=== PATIENT | female | born 1975 | race Caucasian/White ===

== ENCOUNTER → 2020-04-17 07:58 | Outpatient (CLI) | payer MEDICARE, SELFPAY ==
[2020-04-17 09:02] LABS: Add Manual Diff / Slide Review NO; Basophils Absolute Auto 0 /uL (0-100); Basophils Percent Auto 0.8 % (0-2); Eosinophils Absolute Auto 200 /uL (0-450); Eosinophils Percent Auto 3.3 % (2-4); Hematocrit 36.2 % (36-46); Hemoglobin 12.1 g/dL (12.0-16.0); Lymphocytes Absolute Auto 2500 /uL (1100-4500); Lymphocytes Percent Auto 41.8 % (25-40); Mean Corpuscular HGB Conc 33.4 % (30-36); Mean Corpuscular Hemoglobin 30.7 PG (26-34); Mean Corpuscular Volume 91.9 fL (80-100); Monocytes Absolute Auto 400 /uL (0-900); Monocytes Percent Auto 6.6 % (3-14); Neutrophils Absolute Auto 2900 /uL (1500-7000); Neutrophils Percent Auto 47.5 % (50-75); Platelet Count 407 X10^3/uL (150-400); Red Blood Cell Count 3.95 X10^6/uL (4.0-5.2); Red Cell Distribution Width 12.7 % (11.6-14.8); White Blood Cell Count 6.1 X10^3/uL (4.5-11.0)
[2020-04-17 09:29] LABS: Alanine Aminotransferase 15 IU/L (<35); Albumin 3.8 g/dL (3.5-5.0); Albumin Globulin Ratio 1.1 (1.0-2.8); Alkaline Phosphatase 68 U/L (38-126); Aspartate Aminotransferase 25 IU/L (14-36); BUN Creatinine Ratio 15.2 (6-22); Bilirubin Total 0.3 mg/dL (0.2-1.3); Blood Urea Nitrogen 12 mg/dL (7-17); Calcium 9.1 mg/dL (8.4-10.2); Carbon Dioxide 29 mmol/L (22-32); Chloride 104 mmol/L (98-107); Cholesterol 268 mg/dL (140-199); Estimated Glomerular Filt Rate > 60.0 mL/min (>60); Globulin 3.4 g/dL (1.7-4.1); Glucose 94 mg/dL (70-100); Potassium 4.2 mmol/L (3.4-5.1); Sodium 135 mmol/L (137-145); Total Protein 7.2 g/dL (6.3-8.2); Triglycerides 140 mg/dL (35-150)
[2020-04-17 09:36] LABS: HEMOLYSIS < 15 (0-50)
[2020-04-17 09:37] LABS: LDL Cholesterol Calculated 130 mg/dL (<100)
[2020-04-17 09:55] LABS: TSH w/ Reflex to FT4 3.08 uIU/mL (0.47-4.68)
== END ==
PROVIDERS: PCP Registered Nurse Diabetes Educator; Referring Provider Registered Nurse Diabetes Educator; Visit Provider Registered Nurse Diabetes Educator
DX: Z00.00 Encounter for general adult medical examination without abnormal findings (principal)
CPT/HCPCS: 36415; 80053; 80061; 84443; 85025

== ENCOUNTER → 2020-06-18 10:01 | Outpatient (CLI) | payer MEDICARE, SELFPAY ==
--- NOTE | 2020-06-18 10:02 | DI.MG.S_ITS ---
BILATERAL DIGITAL SCREENING MAMMOGRAM 3D/2D WITH CAD: 06/18/2020 CLINICAL: Routine screening. Comparison is made to exam dated: 10/08/2018 mammogram - outside location. The tissue of both breasts is heterogeneously dense. This may lower the sensitivity of mammography. Current study was also evaluated with a Computer Aided Detection (CAD) system. No significant masses, calcifications, or other findings are seen in either breast. There has been no significant interval change. IMPRESSION: NEGATIVE There is no mammographic evidence of malignancy. A 1 year screening mammogram is recommended. This exam was interpreted at Station ID: [id number]. NOTE: For mammograms, a report in lay terms will be sent to the patient. Approximately 15% of breast malignancies will not be visualized mammographically. In the management of a palpable breast mass, a negative mammogram must not discourage biopsy of a clinically suspicious lesion. Electronically Signed By: Kg Mendes acr/oleg:06/18/2020 13:10:05 letter sent: Normal Exam ACR BI-RADS Category 1: Negative [id number]
== END ==
PROVIDERS: PCP Registered Nurse Diabetes Educator; Referring Provider Registered Nurse Diabetes Educator; Visit Provider Registered Nurse Diabetes Educator
DX: Z12.31 Encounter for screening mammogram for malignant neoplasm of breast (principal)
CPT/HCPCS: 77063; 77067

== ENCOUNTER 2020-09-18 12:45 | Outpatient (RCR) | payer MEDICARE, MEDICAID, SELFPAY ==
--- NOTE | 2020-05-21 09:00 | PT.OIE ---
Current Diagnoses Pain in unspecified shoulder (05/21/20) Past Medical History (Last Updated 04/09/20 @ 06:56 by JUAN Tay) Bipolar disorder (~2008) Dyslipidemia Narcolepsy (~1992) Overweight (BMI 25.0-29.9) PCOS (polycystic ovarian syndrome) (~1995) Sleep apnea (~2019) Past Surgical History (Last Reviewed 04/09/20 @ 06:52 by JUAN Tay) Anesthesia History of colonoscopy (~11/2019) History of esophagogastroduodenoscopy (EGD) (~11/2019) History of surgical removal of pilonidal cyst (~11/2004) Visit Care Team Role Provider Type JUAN Tay Attending Provider Advanced Costumed Character Primary Care Provider Referring Provider Specialty: Medical Address: [address] [place] [address] Email: [email or web address] Physical Therapy Initial Evaluation PT-OP-A Visit Information Start: 05/21/20 14:19 Freq: Status: Active Protocol: Document 05/21/20 09:00 DLM (Rec: 05/21/20 15:12 DL [id number]) Out-Patient Physical Therapy Visit Information Visit Information Visit Type Initial Evaluation Visit Start Time 09:00 Visit Stop Time 10:00 Total Visit Minutes 60 Visit Number 1 Number of GEOLOGICAL TECHNICAL OFFICER Visits 0 Evaluation Information Evaluation Date 05/21/20 PT-OP-B Current Condition Start: 05/21/20 14:19 Freq: Status: Active Protocol: Document 05/21/20 09:00 DLM (Rec: 05/21/20 15:12 DL [id number]) Current Condition History of Current Condition Onset Date 9 months hx Current Complaints right shoulder pain History of Current Condition She developed right shoulder pain 9 months ago. She reports at that time she was sleeping on her side with her hands between her knees and she thinks she irritated her shoulder. The pain has continued since that time and it limits the functional use or her right shoulder. Prior Treatments and Tests none Future Testing and Treatments Planned none planned Treatment Goals Patient/Caregiver Goals resolve the pain in right shoulder for normal use Prior Functional Status Baseline Function- ADL's Independent Baseline Function- Mobility Independent Baseline Function- Gait Independent without a device Baseline Function- Work/School she is unemployed Baseline Function- Recreation/Hobbies works out regularly; Aerobics, Lifting weights, Pilates, Walking Baseline Function- Other Right hand dominant Current Functional Impairments (Reported) Functional Limitations- ADL's pain reaching her back with right UE, pain reaching up, pain cleaning shower Functional Limitations- Mobility/Gait no changes Functional Limitations- Work/School she wants to get a job and is worried that her right shoulder pain will limit her ability to work, interested in applying for a atm technician or some type of medical liaison position Functional Limitations- Recreation/ right shoulder pain limits her Hobbies ability to do aerobics routine and lifting weights Functional Limitations- Other in her spare time she reads and spends time on the computer/phone Personal Factors Other Personal Factors That May Effect Bipolar disorder and Therapy/Recovery Narcolepsy PT-OP-C Subjective Start: 05/21/20 14:19 Freq: Status: Active Protocol: Document 05/21/20 09:00 DLM (Rec: 05/21/20 15:12 [facility] [id number]) Patient Questionnaires Quick Dash- Upper Extremity Quick Dash UE Score 40.9 Quick Dash UE Impairment 40 to 59% Impaired (Score 40- 59) OP-PT Pain Assessment Pain Assessment Grid Paper Pain Assessment Grid Completed Yes: see in paper chart Location Right Shoulder Pain Location Details anterior and superior areas of right shoulder Intensity 2 Scale Used Numeric (0 - 10) Description Aching,With Movement Frequency Intermittent Pain Aggravating Factors Changing Position,Activity, Exercise Other Pain Aggravating Factors reaching up and behind her Pain Alleviating Factors Rest Other Pain Alleviating Factors she has not tried heat or ice on her shoulder Pain Behaviors Pain Behaviors Guarding PT-OP-F Manual Assessment Start: 05/21/20 14:19 Freq: Status: Active Protocol: Document 05/21/20 09:00 DLM (Rec: 05/21/20 15:12 DL [id number]) Manual Assessments Soft Tissue Assessment Soft Tissue Mobility Assessment soft tissue tightness anterior shoulder and biceps with tenderness Joint Mobility Assessment Joint Mobility Assessment mild to moderate decrease in post and inferior glides right shoulder compared to left PT-OP-J Posture/Palpation/Skin Start: 05/21/20 14:19 Freq: Status: Active Protocol: Document 05/21/20 09:00 DLM (Rec: 05/21/20 15:12 DL [id number]) Posture Evaluation Comments Posture Comments flexed posture with rounded shoulders and forward head Palpation Assessment Location Right shoulder Palpation Location right shoulder joint area Palpation Findings Tenderness Palpation Details anterior shoulder joint tender , biceps tendon tender, No AC joint tenderness, mild to moderate tightness in her Upper trap, mild tightness right pect major, no scapular area tenderness PT-OP-K Range of Motion Start: 05/21/20 14:19 Freq: Status: Active Protocol: Document 05/21/20 09:00 DLM (Rec: 05/21/20 15:12 DL [id number]) Shoulder Goniometric Range of Motion Shoulder Right Active Flexion 130 Abduction 80 External Rotation at 90 degrees 75 Abduction Internal Rotation 55 Internal Rotation Behind Back (text) to right post side of back limited by pain Comments pain limits right shoulder ROM PT-OP-L Special Tests Start: 05/21/20 14:19 Freq: Status: Active Protocol: Document 05/21/20 09:00 DLM (Rec: 05/21/20 15:12 DL [id number]) Special Tests Shoulder Special Tests Elevation Impingement Test Results positive on right Empty Can Test Results positive on right Drop Arm Rotator Cuff Test Results negative Apprehension Test Test Results negative on right Elbow Special Tests Raza Biceps Test Results negative PT-OP-M Strength Start: 05/21/20 14:19 Freq: Status: Active Protocol: Document 05/21/20 09:00 DLM (Rec: 05/21/20 15:12 DL [id number]) Shoulder Strength Shoulder Manual Muscle Testing Right Flexion 4 Good Extension 4 Good Abduction (C5) 4- Good- Adduction 4+ Good+ External Rotation 4 Good Internal Rotation 4+ Good+ Comments tested in painfree range of motion Elbow/Forearm Strength Elbow and Forearm Manual Muscle Testing Right Flexion (C6) 5 Normal Extension (C7) 5 Normal Wrist Strength Wrist Manual Muscle Testing Right Flexion (C7) 5 Normal Extension (C6) 5 Normal Hand Radiology Transcriptionist/Pinch Strength Hand Dominance Hand Dominance Right PT-OP-Q Treatments Start: 05/21/20 14:19 Freq: Status: Active Protocol: Document 05/21/20 09:00 DLM (Rec: 05/21/20 15:12 DL [id number]) Therapeutic Exercises Supine Exercises AAROM Shoulder flexion Supine Exercise Name Cane ex for flexion ROM Side bilateral Resistance AAROM Equipment Used cane Reps/Minutes 10 reps Comments less pain with wider drive in waiter/waitress Standing Exercises Posture Exercise Standing Exercise Name standing with back to wall for erect posture Resistance active Reps/Minutes 3 reps Manual Therapy Treatment Soft Tissue Mobilization 1 Body Location right anterior shoulder Mobilization Type Myofascial Release Intensity/Depth Superficial Body Position Supine Manual Techniques 1 Type manual stretching of upper trap by therapist Body Position Supine Self-Care/Home Management Treatment Education Patient Education Home Exercise Program,Pain Management,Posture Other Education pt to rest arm during aerobics and weight lifting to avoid increasing her pain, add icing to shoulder 1-2 x/day for 10- 15 min at a time PT-OP-R Modalities Start: 05/21/20 14:19 Freq: Status: Active Protocol: Document 05/21/20 09:00 DLM (Rec: 05/21/20 15:12 DLM [id number]) Hot Pack/Cold Pack Treatment Cold Pack Location right shoulder Patient Position Supine Treatment Duration (minutes) 10 Patient Tolerance Good Comments she reports less pain after icing PT-OP-T Assessment and Plan Start: 05/21/20 14:19 Freq: Status: Active Protocol: Document 05/21/20 09:00 DLM (Rec: 05/21/20 15:12 DLM [id number]) Physical Therapy Assessment Rehab Potential Rehabilitation Potential Good Evaluation Complexity Number of Personal Factors/Comorbidities 1-2 Number of Body Systems Impaired 4 or More Clinical Presentation at Evaluation Evolving Impairments Impairments Functional Activities,Pain, Posture,ROM,Soft Tissue Mobility,Strength Goals Strength Impairment Right shoulder weakness with pain Short Term Goal (STG) Increase right shoulder strength to 4+/5 STG Duration 2 weeks Tank Car Repairer Goal (LTG) Return to regular aerobic and weight lifting exercise routine at home LTG Duration 4 weeks ROM Impairment Right shoulder limited with pain Short Term Goal (STG) Increase shoulder flexion to 170 degrees and abduction to 150 degrees STG Duration 2 weeks Tank Car Repairer Goal (LTG) Increase right shoulder AROM to WNL LTG Duration 4 weeks Pain Impairment 2/10 pain, limited ROM and strength Short Term Goal (STG) She will be able to reach up over head without increased pain STG Duration 2 weeks Skilled Nursing Goal (LTG) She will be able to reach behind her back without increased pain LTG Duration 4 weeks Assessment Summary Assessment Kedar presents with clinical signs of right shoulder strain with rotator cuff impingement . Pt believes this started after a change in her sleeping position. Concerned it may be further complicated by her home exercises. She is a good candidate for physical therapy at this time. Her right shoulder pain is limiting functional ROM and strength of right UE. Physical Therapy Plan Frequency and Duration Frequency of Treatment 2x/Week Duration of Treatment 4 weeks Plan of Care Start Date 05/21/20 Plan of Care End Date 07/05/20 Therapeutic Interventions Therapeutic Interventions Home Exercise Program,Joint Mobilizations,Manual Therapy, Patient/Caregiver Education, Self-Care/Home Management,Soft Tissue Mobilization,Taping, Therapeutic Activities, Therapeutic Exercises Modalities Cold Pack/Ice Massage,Electric Stimulation,Hot Packs, Ultrasound Next Visit Focus/Plan Next Note Type Treatment Note Next Visit Plan Pt to bring in a list of her right shoulder ex from aerobic and weight lifting routine at home. Progress rotator cuff exercises in painfree ROM. Reinforce good posture.
--- NOTE | 2020-05-21 09:00 | PT.OPPOC ---
Addendum entered and electronically signed by Maia Mcgraw PT 05/21/20 15:17: sending for e-signature Original Note: Physical, Occupational & Speech Therapy [facility] Current Diagnoses Pain in unspecified shoulder (05/21/20) Muscle weakness (generalized) (05/21/20) Impingement syndrome of right shoulder (05/21/20) Visit Care Team Role Provider Type JUAN Tay Attending Provider Advanced Bat Person Primary Care Provider Referring Provider Specialty: Medical Address: [address] [place] [address], [facility] Email: [email or web address] Plan Of Care PT-OP-T Assessment and Plan Start: 05/21/20 14:19 Freq: Status: Active Protocol: Document 05/21/20 09:00 DLM (Rec: 05/21/20 15:12 DLM [id number]) Physical Therapy Assessment Rehab Potential Rehabilitation Potential Good Evaluation Complexity Number of Personal Factors/Comorbidities 1-2 Number of Body Systems Impaired 4 or More Clinical Presentation at Evaluation Evolving Impairments Impairments Functional Activities,Pain, Posture,ROM,Soft Tissue Mobility,Strength Goals Strength Impairment Right shoulder weakness with pain Short Term Goal (STG) Increase right shoulder strength to 4+/5 STG Duration 2 weeks Sales Facilitator Goal (LTG) Return to regular aerobic and weight lifting exercise routine at home LTG Duration 4 weeks ROM Impairment Right shoulder limited with pain Short Term Goal (STG) Increase shoulder flexion to 170 degrees and abduction to 150 degrees STG Duration 2 weeks Retirement Goal (LTG) Increase right shoulder AROM to WNL LTG Duration 4 weeks Pain Impairment 2/10 pain, limited ROM and strength Short Term Goal (STG) She will be able to reach up over head without increased pain STG Duration 2 weeks Sales Facilitator Goal (LTG) She will be able to reach behind her back without increased pain LTG Duration 4 weeks Assessment Summary Assessment Kedar presents with clinical signs of right shoulder strain with rotator cuff impingement . Pt believes this started after a change in her sleeping position. Concerned it may be further complicated by her home exercises. She is a good candidate for physical therapy at this time. Her right shoulder pain is limiting functional ROM and strength of right UE. Physical Therapy Plan Frequency and Duration Frequency of Treatment 2x/Week Duration of Treatment 4 weeks Plan of Care Start Date 05/21/20 Plan of Care End Date 07/05/20 Therapeutic Interventions Therapeutic Interventions Home Exercise Program,Joint Mobilizations,Manual Therapy, Patient/Caregiver Education, Self-Care/Home Management,Soft Tissue Mobilization,Taping, Therapeutic Activities, Therapeutic Exercises Modalities Cold Pack/Ice Massage,Electric Stimulation,Hot Packs, Ultrasound Next Visit Focus/Plan Next Note Type Treatment Note Next Visit Plan Pt to bring in a list of her right shoulder ex from aerobic and weight lifting routine at home. Progress rotator cuff exercises in painfree ROM. Reinforce good posture. Plan of Care Dates Plan of Care Start Date 05/21/20 Plan of Care End Date 07/05/20 Electronically Signed by: Maia Mcgraw, PT 05/21/20 [id number] Please Sign and Return: I have reviewed this Plan of Care and certify that the skilled therapy services above are required to meet the patient?s needs. Physician Signature Date Printed Name and Credentials C
--- NOTE | 2020-05-25 13:53 | PT.OTN ---
Current Diagnoses Pain in unspecified shoulder (05/25/20) Muscle weakness (generalized) (05/25/20) Impingement syndrome of right shoulder (05/25/20) Physical Therapy Treatment Note PT-OP-A Visit Information Start: 05/21/20 14:19 Freq: Status: Active Protocol: Document 05/25/20 13:53 DLM (Rec: 05/25/20 14:09 DLM [id number]) Out-Patient Physical Therapy Visit Information Visit Information Visit Type Treatment Note Visit Start Time 13:00 Visit Stop Time 13:50 Total Visit Minutes 50 Visit Number 2 Number of INTERNET MARKETER Visits 0 Evaluation Information Evaluation Date 05/21/20 PT-OP-B Current Condition Start: 05/21/20 14:19 Freq: Status: Active Protocol: Document 05/21/20 09:00 DLM (Rec: 05/21/20 15:12 DLM [id number]) Current Condition History of Current Condition Onset Date 9 months hx Current Complaints right shoulder pain History of Current Condition She developed right shoulder pain 9 months ago. She reports at that time she was sleeping on her side with her hands between her knees and she thinks she irritated her shoulder. The pain has continued since that time and it limits the functional use or her right shoulder. Prior Treatments and Tests none Future Testing and Treatments Planned none planned Treatment Goals Patient/Caregiver Goals resolve the pain in right shoulder for normal use Prior Functional Status Baseline Function- ADL's Independent Baseline Function- Mobility Independent Baseline Function- Gait Independent without a device Baseline Function- Work/School she is unemployed Baseline Function- Recreation/Hobbies works out regularly; Aerobics, Lifting weights, Pilates, Walking Baseline Function- Other Right hand dominant Current Functional Impairments (Reported) Functional Limitations- ADL's pain reaching her back with right UE, pain reaching up, pain cleaning shower Functional Limitations- Mobility/Gait no changes Functional Limitations- Work/School she wants to get a job and is worried that her right shoulder pain will limit her ability to work, interested in applying for a pharmacy laboratory technician or some type of medical record assistant position Functional Limitations- Recreation/ right shoulder pain limits her Hobbies ability to do aerobics routine and lifting weights Functional Limitations- Other in her spare time she reads and spends time on the computer/phone Personal Factors Other Personal Factors That May Effect Bipolar disorder and Therapy/Recovery Narcolepsy PT-OP-C Subjective Start: 05/21/20 14:19 Freq: Status: Active Protocol: Document 05/25/20 13:53 DLM (Rec: 05/25/20 14:09 DLM [id number]) OP-PT Subjective Patient Comments Patient Comments She reports her shoulder pain has been a little better; pain is less sharp. She has been doing the ex at home. She forgot to make a list of her normal aerobic and weight training ex that she does with right UE. PT-OP-F Manual Assessment Start: 05/21/20 14:19 Freq: Status: Active Protocol: Document 05/21/20 09:00 DLM (Rec: 05/21/20 15:12 DLM [id number]) Manual Assessments Soft Tissue Assessment Soft Tissue Mobility Assessment soft tissue tightness anterior shoulder and biceps with tenderness Joint Mobility Assessment Joint Mobility Assessment mild to moderate decrease in post and inferior glides right shoulder compared to left PT-OP-J Posture/Palpation/Skin Start: 05/21/20 14:19 Freq: Status: Active Protocol: Document 05/21/20 09:00 DLM (Rec: 05/21/20 15:12 DLM [id number]) Posture Evaluation Comments Posture Comments flexed posture with rounded shoulders and forward head Palpation Assessment Location Right shoulder Palpation Location right shoulder joint area Palpation Findings Tenderness Palpation Details anterior shoulder joint tender , biceps tendon tender, No AC joint tenderness, mild to moderate tightness in her Upper trap, mild tightness right pect major, no scapular area tenderness PT-OP-K Range of Motion Start: 05/21/20 14:19 Freq: Status: Active Protocol: Document 05/21/20 09:00 DLM (Rec: 05/21/20 15:12 DLM [id number]) Shoulder Goniometric Range of Motion Shoulder Right Active Flexion 130 Abduction 80 External Rotation at 90 degrees 75 Abduction Internal Rotation 55 Internal Rotation Behind Back (text) to right post side of back limited by pain Comments pain limits right shoulder ROM PT-OP-L Special Tests Start: 05/21/20 14:19 Freq: Status: Active Protocol: Document 05/21/20 09:00 DLM (Rec: 05/21/20 15:12 DLM [id number]) Special Tests Shoulder Special Tests Elevation Impingement Test Results positive on right Empty Can Test Results positive on right Drop Arm Rotator Cuff Test Results negative Apprehension Test Test Results negative on right Elbow Special Tests Raza Biceps Test Results negative PT-OP-M Strength Start: 05/21/20 14:19 Freq: Status: Active Protocol: Document 05/21/20 09:00 DLM (Rec: 05/21/20 15:12 DLM [id number]) Shoulder Strength Shoulder Manual Muscle Testing Right Flexion 4 Good Extension 4 Good Abduction (C5) 4- Good- Adduction 4+ Good+ External Rotation 4 Good Internal Rotation 4+ Good+ Comments tested in painfree range of motion Elbow/Forearm Strength Elbow and Forearm Manual Muscle Testing Right Flexion (C6) 5 Normal Extension (C7) 5 Normal Wrist Strength Wrist Manual Muscle Testing Right Flexion (C7) 5 Normal Extension (C6) 5 Normal Hand Pit Recorder/Pinch Strength Hand Dominance Hand Dominance Right PT-OP-Q Treatments Start: 05/21/20 14:19 Freq: Status: Active Protocol: Document 05/25/20 13:53 DLM (Rec: 05/25/20 14:09 DLM [id number]) Therapeutic Exercises Supine Exercises Shoulder IR/ER Supine Exercise Name supine IR/ER Side right Resistance 1# Reps/Minutes 15 reps Comments therapist assist with shoulder stab Postural Stretch Supine Exercise Name supine foam roll stretch Reps/Minutes 5 min Comments UE's at sides AAROM Shoulder flexion Supine Exercise Name Cane ex for flexion ROM Side bilateral Resistance AAROM Equipment Used cane Reps/Minutes 10 reps Comments adjusted hand width to minimize pain Sitting Exercises Pulleys Sitting Exercise Name AAROM flexion/scaption Side right Reps/Minutes 15 reps Comments seated with back to ceci Standing Exercises Shoulder IR Standing Exercise Name shoulder internal rotation Side right Resistance L1 exercise band Reps/Minutes 2 x 10 reps Comments v.c. for erect posture Shoulder Ext Standing Exercise Name Shoulder Extension Side bilateral Resistance L1 exercise band Reps/Minutes 2 x 10 reps Comments v.c. for erect posture Shoulder ER Standing Exercise Name shoulder External rotation Side bilateral Resistance L1 exercise band Reps/Minutes 2 x 10 reps Comments v.c. for erect posture Posture Exercise Standing Exercise Name standing with back to wall for erect posture Reps/Minutes reviewed for HEP Manual Therapy Treatment Soft Tissue Mobilization 1 Body Location right anterior shoulder Mobilization Type Myofascial Release Intensity/Depth Superficial Body Position Supine Comments and biceps Joint Mobilizations GH Joint GH, right Direction post and inferior Grade II Body Position Supine Manual Techniques 1 Type manual stretching of upper trap by therapist Body Location right Body Position Supine Self-Care/Home Management Treatment Education Patient Education Home Exercise Program,Pain Management,Posture Other Education copy of HEP in paper chart, she needs all home exercises written to be able to recall them, provided L1 band for home use PT-OP-R Modalities Start: 05/21/20 14:19 Freq: Status: Active Protocol: Document 05/25/20 13:53 DLM (Rec: 05/25/20 14:09 DLM [id number]) Hot Pack/Cold Pack Treatment Cold Pack Location right shoulder Patient Position Supine Treatment Duration (minutes) 10 Patient Tolerance Good Comments she reports less pain after icing PT-OP-T Assessment and Plan Start: 05/21/20 14:19 Freq: Status: Active Protocol: Document 05/25/20 13:53 DLM (Rec: 05/25/20 14:09 DLM [id number]) Physical Therapy Assessment Goals Strength Impairment Right shoulder weakness with pain Short Term Goal (STG) Increase right shoulder strength to 4+/5 STG Duration 2 weeks Spinning Frame Changer Goal (LTG) Return to regular aerobic and weight lifting exercise routine at home LTG Duration 4 weeks ROM Impairment Right shoulder limited with pain Short Term Goal (STG) Increase shoulder flexion to 170 degrees and abduction to 150 degrees STG Duration 2 weeks Spinning Frame Changer Goal (LTG) Increase right shoulder AROM to WNL LTG Duration 4 weeks Pain Impairment 2/10 pain, limited ROM and strength Short Term Goal (STG) She will be able to reach up over head without increased pain STG Duration 2 weeks Half-Way Goal (LTG) She will be able to reach behind her back without increased pain LTG Duration 4 weeks Progress Towards Goals Progress Towards Goals Progressing Toward Goals Assessment Summary Assessment Kedar tolerated this treatment session well today. Able to progress her exercises. No increase in pain with theraband exercises. She continues to have pain at end range flexion. Less pain with pulleys than cane ex. She reports less pain with use of ice. She rarely makes eye contact during therapy session but she is engaged in the activities and shows good effort. She asks good questions. Physical Therapy Plan Frequency and Duration Frequency of Treatment 2x/Week Duration of Treatment 4 weeks Plan of Care Start Date 05/21/20 Plan of Care End Date 07/05/20 Therapeutic Interventions Therapeutic Interventions Home Exercise Program,Joint Mobilizations,Manual Therapy, Patient/Caregiver Education, Self-Care/Home Management,Soft Tissue Mobilization,Taping, Therapeutic Activities, Therapeutic Exercises Modalities Cold Pack/Ice Massage,Electric Stimulation,Hot Packs, Ultrasound Next Visit Focus/Plan Next Note Type Treatment Note Next Visit Plan slowly progress rotator cuff strengthening, she will bring a list of her aerobic and weight training exercises that she normally does with right UE
--- NOTE | 2020-06-08 11:49 | PT.OTN ---
Current Diagnoses Pain in unspecified shoulder (06/08/20) Muscle weakness (generalized) (06/08/20) Impingement syndrome of right shoulder (06/08/20) Physical Therapy Treatment Note PT-OP-A Visit Information Start: 05/21/20 14:19 Freq: Status: Active Protocol: Document 06/08/20 08:17 LRN (Rec: 06/08/20 09:06 LRN [id number]) Out-Patient Physical Therapy Visit Information Visit Information Visit Type Treatment Note Visit Start Time 08:17 Visit Stop Time 09:06 Total Visit Minutes 49 Visit Number 3 Evaluation Information Evaluation Date 05/21/20 PT-OP-B Current Condition Start: 05/21/20 14:19 Freq: Status: Active Protocol: Document 05/21/20 09:00 DLM (Rec: 05/21/20 15:12 DLM [id number]) Current Condition History of Current Condition Onset Date 9 months hx Current Complaints right shoulder pain History of Current Condition She developed right shoulder pain 9 months ago. She reports at that time she was sleeping on her side with her hands between her knees and she thinks she irritated her shoulder. The pain has continued since that time and it limits the functional use or her right shoulder. Prior Treatments and Tests none Future Testing and Treatments Planned none planned Treatment Goals Patient/Caregiver Goals resolve the pain in right shoulder for normal use Prior Functional Status Baseline Function- ADL's Independent Baseline Function- Mobility Independent Baseline Function- Gait Independent without a device Baseline Function- Work/School she is unemployed Baseline Function- Recreation/Hobbies works out regularly; Aerobics, Lifting weights, Pilates, Walking Baseline Function- Other Right hand dominant Current Functional Impairments (Reported) Functional Limitations- ADL's pain reaching her back with right UE, pain reaching up, pain cleaning shower Functional Limitations- Mobility/Gait no changes Functional Limitations- Work/School she wants to get a job and is worried that her right shoulder pain will limit her ability to work, interested in applying for a retail pharmacy manager or some type of medical coding auditor position Functional Limitations- Recreation/ right shoulder pain limits her Hobbies ability to do aerobics routine and lifting weights Functional Limitations- Other in her spare time she reads and spends time on the computer/phone Personal Factors Other Personal Factors That May Effect Bipolar disorder and Therapy/Recovery Narcolepsy PT-OP-C Subjective Start: 05/21/20 14:19 Freq: Status: Active Protocol: Document 06/08/20 08:17 LRN (Rec: 06/08/20 09:06 LRN [id number]) OP-PT Subjective Patient Comments Patient Comments R shoulder is okay, thinks it might be getting better. PT-OP-F Manual Assessment Start: 05/21/20 14:19 Freq: Status: Active Protocol: Document 05/21/20 09:00 DLM (Rec: 05/21/20 15:12 DLM [id number]) Manual Assessments Soft Tissue Assessment Soft Tissue Mobility Assessment soft tissue tightness anterior shoulder and biceps with tenderness Joint Mobility Assessment Joint Mobility Assessment mild to moderate decrease in post and inferior glides right shoulder compared to left PT-OP-J Posture/Palpation/Skin Start: 05/21/20 14:19 Freq: Status: Active Protocol: Document 05/21/20 09:00 DLM (Rec: 05/21/20 15:12 DLM [id number]) Posture Evaluation Comments Posture Comments flexed posture with rounded shoulders and forward head Palpation Assessment Location Right shoulder Palpation Location right shoulder joint area Palpation Findings Tenderness Palpation Details anterior shoulder joint tender , biceps tendon tender, No AC joint tenderness, mild to moderate tightness in her Upper trap, mild tightness right pect major, no scapular area tenderness PT-OP-K Range of Motion Start: 05/21/20 14:19 Freq: Status: Active Protocol: Document 06/08/20 08:17 LRN (Rec: 06/08/20 09:06 LRN [id number]) Shoulder Goniometric Range of Motion Shoulder Right Active Shoulder ROM WFL No Testing Position Supine Flexion 140 PT-OP-L Special Tests Start: 05/21/20 14:19 Freq: Status: Active Protocol: Document 05/21/20 09:00 DLM (Rec: 05/21/20 15:12 DLM [id number]) Special Tests Shoulder Special Tests Elevation Impingement Test Results positive on right Empty Can Test Results positive on right Drop Arm Rotator Cuff Test Results negative Apprehension Test Test Results negative on right Elbow Special Tests Raza Biceps Test Results negative PT-OP-M Strength Start: 05/21/20 14:19 Freq: Status: Active Protocol: Document 05/21/20 09:00 DLM (Rec: 05/21/20 15:12 [facility] [id number]) Shoulder Strength Shoulder Manual Muscle Testing Right Flexion 4 Good Extension 4 Good Abduction (C5) 4- Good- Adduction 4+ Good+ External Rotation 4 Good Internal Rotation 4+ Good+ Comments tested in painfree range of motion Elbow/Forearm Strength Elbow and Forearm Manual Muscle Testing Right Flexion (C6) 5 Normal Extension (C7) 5 Normal Wrist Strength Wrist Manual Muscle Testing Right Flexion (C7) 5 Normal Extension (C6) 5 Normal Hand Finishing Lab Technician/Pinch Strength Hand Dominance Hand Dominance Right PT-OP-Q Treatments Start: 05/21/20 14:19 Freq: Status: Active Protocol: Document 06/08/20 08:17 LRN (Rec: 06/08/20 09:06 LRN [id number]) Therapeutic Exercises Supine Exercises ER stretch Supine Exercise Name ER stretch Side right Equipment Used Cane Reps/Minutes 4' Comments Extra time to deter max ROM stretch alea & proper stretch AAROM Shoulder flexion Supine Exercise Name Cane ex for flexion ROM Side bilateral Resistance AAROM Equipment Used cane Reps/Minutes 10 reps Comments adjusted hand width to minimize pain Standing Exercises Shoulder IR Standing Exercise Name shoulder internal rotation Side right Resistance L1 exercise band Reps/Minutes 2 x 10 reps Comments v.c. for erect posture Shoulder Ext Standing Exercise Name Shoulder Extension Side bilateral Resistance L1 exercise band Reps/Minutes 2 x 10 reps Comments v.c. for erect posture Shoulder ER Standing Exercise Name shoulder External rotation Side bilateral Resistance L1 exercise band Reps/Minutes 2 x 10 reps Comments v.c. for erect posture Self-Care/Home Management Treatment Education Patient Education Home Exercise Program Other Education Reviewed pt's HEP. Educated pt in correct method of using strap in door for shouler ext ex w/TB. At length pt education in proper posturing in standing and discussion of re-training body posturing. Activities Self-Care/Home Management Activities Reviewed pt 's HEP of her current aerobic exer routine. Issued & extensively reviewed HEP: R shoulder ER stretch. Answered pt's questions at end of therapy with pt requesting names of massage therapists. PT-OP-R Modalities Start: 05/21/20 14:19 Freq: Status: Active Protocol: Document 06/08/20 08:17 LRN (Rec: 06/08/20 11:49 LRN [id number]) Hot Pack/Cold Pack Treatment Cold Pack Location right shoulder Patient Position Supine Treatment Duration (minutes) 10 Patient Tolerance Good PT-OP-T Assessment and Plan Start: 05/21/20 14:19 Freq: Status: Active Protocol: Document 06/08/20 08:17 VINEET (Rec: 06/08/20 09:06 LRN [id number]) Physical Therapy Assessment Goals Strength Impairment Right shoulder weakness with pain Short Term Goal (STG) Increase right shoulder strength to 4+/5 STG Duration 2 weeks Mcfp Goal (LTG) Return to regular aerobic and weight lifting exercise routine at home LTG Duration 4 weeks ROM Impairment Right shoulder limited with pain Short Term Goal (STG) Increase shoulder flexion to 170 degrees and abduction to 150 degrees. (06/08/20: R shoulder active flex in supine is 140 deg's) STG Duration 2 weeks (06/08/20: Improving) Welder Fitter Gas Goal (LTG) Increase right shoulder AROM to WNL LTG Duration 4 weeks Pain Impairment 2/10 pain, limited ROM and strength Short Term Goal (STG) She will be able to reach up over head without increased pain STG Duration 2 weeks Welder Fitter Gas Goal (LTG) She will be able to reach behind her back without increased pain LTG Duration 4 weeks Progress Towards Goals Progress Comments R active shoulder supine flex is 140 deg's, improved from 130 deg's. Assessment Summary Assessment Pt tends to look at feet with ex & needs v. cuing during therapy. Pt tends to require much explanation and discussion of a single exercise during therapy and pt moves slowly through program. Physical Therapy Plan Frequency and Duration Frequency of Treatment 2x/Week Duration of Treatment 4 weeks Plan of Care Start Date 05/21/20 Plan of Care End Date 07/05/20 Next Visit Focus/Plan Next Note Type Treatment Note Next Visit Plan slowly progress rotator cuff strengthening. Review previously issued HEP. Provide massage therapist local.
--- NOTE | 2020-06-19 13:50 | PT.OTN ---
Current Diagnoses Pain in unspecified shoulder (06/19/20) Muscle weakness (generalized) (06/19/20) Impingement syndrome of right shoulder (06/19/20) Physical Therapy Treatment Note PT-OP-A Visit Information Start: 05/21/20 14:19 Freq: Status: Active Protocol: Document 06/19/20 12:47 LRN (Rec: 06/19/20 13:48 LRN [id number]) Out-Patient Physical Therapy Visit Information Visit Information Visit Type Treatment Note Visit Start Time 12:47 Visit Stop Time 13:37 Total Visit Minutes 50 Visit Number 4 Evaluation Information Evaluation Date 05/21/20 Precautions Precautions BiPolar Disorder Narcolepsy PT-OP-B Current Condition Start: 05/21/20 14:19 Freq: Status: Active Protocol: Document 05/21/20 09:00 DLM (Rec: 05/21/20 15:12 DLM [id number]) Current Condition History of Current Condition Onset Date 9 months hx Current Complaints right shoulder pain History of Current Condition She developed right shoulder pain 9 months ago. She reports at that time she was sleeping on her side with her hands between her knees and she thinks she irritated her shoulder. The pain has continued since that time and it limits the functional use or her right shoulder. Prior Treatments and Tests none Future Testing and Treatments Planned none planned Treatment Goals Patient/Caregiver Goals resolve the pain in right shoulder for normal use Prior Functional Status Baseline Function- ADL's Independent Baseline Function- Mobility Independent Baseline Function- Gait Independent without a device Baseline Function- Work/School she is unemployed Baseline Function- Recreation/Hobbies works out regularly; Aerobics, Lifting weights, Pilates, Walking Baseline Function- Other Right hand dominant Current Functional Impairments (Reported) Functional Limitations- ADL's pain reaching her back with right UE, pain reaching up, pain cleaning shower Functional Limitations- Mobility/Gait no changes Functional Limitations- Work/School she wants to get a job and is worried that her right shoulder pain will limit her ability to work, interested in applying for a manager pharmacy or some 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 of medical research assistant position Functional Limitations- Recreation/ right shoulder pain limits her Hobbies ability to do aerobics routine and lifting weights Functional Limitations- Other in her spare time she reads and spends time on the computer/phone Personal Factors Other Personal Factors That May Effect Bipolar disorder and Therapy/Recovery Narcolepsy PT-OP-C Subjective Start: 05/21/20 14:19 Freq: Status: Active Protocol: Document 06/19/20 12:47 LRN (Rec: 06/19/20 13:48 LRN [id number]) OP-PT Subjective Patient Comments Patient Comments Stretching into flex in supine the R shoulder pain is 50% less. Rates her improvement as 45% better, (Reaching up into cupboard and moving things is not as sharp). Pt requests use of ice at end. PT-OP-F Manual Assessment Start: 05/21/20 14:19 Freq: Status: Active Protocol: Document 05/21/20 09:00 DLM (Rec: 05/21/20 15:12 DLM [id number]) Manual Assessments Soft Tissue Assessment Soft Tissue Mobility Assessment soft tissue tightness anterior shoulder and biceps with tenderness Joint Mobility Assessment Joint Mobility Assessment mild to moderate decrease in post and inferior glides right shoulder compared to left PT-OP-J Posture/Palpation/Skin Start: 05/21/20 14:19 Freq: Status: Active Protocol: Document 05/21/20 09:00 DLM (Rec: 05/21/20 15:12 DLM [id number]) Posture Evaluation Comments Posture Comments flexed posture with rounded shoulders and forward head Palpation Assessment Location Right shoulder Palpation Location right shoulder joint area Palpation Findings Tenderness Palpation Details anterior shoulder joint tender , biceps tendon tender, No AC joint tenderness, mild to moderate tightness in her Upper trap, mild tightness right pect major, no scapular area tenderness PT-OP-K Range of Motion Start: 05/21/20 14:19 Freq: Status: Active Protocol: Document 06/08/20 08:17 LRN (Rec: 06/08/20 09:06 LRN [id number]) Shoulder Goniometric Range of Motion Shoulder Right Active Shoulder ROM WFL No Testing Position Supine Flexion 140 PT-OP-L Special Tests Start: 05/21/20 14:19 Freq: Status: Active Protocol: Document 05/21/20 09:00 DLM (Rec: 05/21/20 15:12 DLM [id number]) Special Tests Shoulder Special Tests Elevation Impingement Test Results positive on right Empty Can Test Results positive on right Drop Arm Rotator Cuff Test Results negative Apprehension Test Test Results negative on right Elbow Special Tests Raza Biceps Test Results negative PT-OP-M Strength Start: 05/21/20 14:19 Freq: Status: Active Protocol: Document 05/21/20 09:00 DLM (Rec: 05/21/20 15:12 DLM [id number]) Shoulder Strength Shoulder Manual Muscle Testing Right Flexion 4 Good Extension 4 Good Abduction (C5) 4- Good- Adduction 4+ Good+ External Rotation 4 Good Internal Rotation 4+ Good+ Comments tested in painfree range of motion Elbow/Forearm Strength Elbow and Forearm Manual Muscle Testing Right Flexion (C6) 5 Normal Extension (C7) 5 Normal Wrist Strength Wrist Manual Muscle Testing Right Flexion (C7) 5 Normal Extension (C6) 5 Normal Hand Pier Master/Pinch Strength Hand Dominance Hand Dominance Right PT-OP-Q Treatments Start: 05/21/20 14:19 Freq: Status: Active Protocol: Document 06/19/20 12:47 LRN (Rec: 06/19/20 13:48 LRN [id number]) Cardio Equipment Upper Body Ergometer (UBE) Duration (Minutes) 6 RPM 70 Seat Position 9 Height 2 Other Blocks under feet Therapeutic Exercises Supine Exercises Chest Press Plus Supine Exercise Name Chest Press Plus Side bilateral AAROM Shoulder flexion Supine Exercise Name Cane ex for flexion ROM Side bilateral Resistance AAROM Equipment Used cane Reps/Minutes 10 reps Comments adjusted hand width to shoulder width pain Sitting Exercises Pulleys Sitting Exercise Name AAROM flexion/scaption Side right Reps/Minutes 15 reps Comments seated with back to ceci Standing Exercises Scapular depression/rotation Standing Exercise Name Scapular oblique drops Side bilateral Reps/Minutes 8' Comments Pt able to do minimal drop of shoulder w/phys cuing Shoulder IR Standing Exercise Name shoulder internal rotation Side right Resistance L1 exercise band Reps/Minutes 3 x 10 reps Comments v.c. for erect posture Shoulder Ext Standing Exercise Name Row & w/elbows straight Side bilateral Resistance L1 exercise band Reps/Minutes 2 x 15 reps each Comments v.c. for erect posture Shoulder ER Standing Exercise Name shoulder External rotation Side bilateral Resistance L1 exercise band Reps/Minutes 3 x 10 reps Comments v. & phy.cues for erect posture Self-Care/Home Management Treatment Education Patient Education Home Exercise Program Other Education Issued & briefly discussed Massage therapist list of providers locally. Activities Self-Care/Home Management Activities Issued and reviewed HEP of chest press with separate ex for the plus part of the exercise. PT-OP-R Modalities Start: 05/21/20 14:19 Freq: Status: Active Protocol: Document 06/08/20 08:17 LRN (Rec: 06/08/20 11:49 LRN [id number]) Hot Pack/Cold Pack Treatment Cold Pack Location right shoulder Patient Position Supine Treatment Duration (minutes) 10 Patient Tolerance Good PT-OP-T Assessment and Plan Start: 05/21/20 14:19 Freq: Status: Active Protocol: Document 06/19/20 12:47 LRN (Rec: 06/19/20 13:48 LRN [id number]) Physical Therapy Assessment Goals Strength Impairment Right shoulder weakness with pain Short Term Goal (STG) Increase right shoulder strength to 4+/5 STG Duration 2 weeks Drawer Liner Goal (LTG) Return to regular aerobic and weight lifting exercise routine at home LTG Duration 4 weeks ROM Impairment Right shoulder limited with pain Short Term Goal (STG) Increase shoulder flexion to 170 degrees and abduction to 150 degrees. (06/08/20: R shoulder active flex in supine is 140 deg's) STG Duration 2 weeks (06/08/20: Improving) Care Home Goal (LTG) Increase right shoulder AROM to WNL LTG Duration 4 weeks Pain Impairment 2/10 pain, limited ROM and strength Short Term Goal (STG) She will be able to reach up over head without increased pain STG Duration 2 weeks Care Home Goal (LTG) She will be able to reach behind her back without increased pain LTG Duration 4 weeks Progress Towards Goals Progress Comments Pt tolerated 5'45 of UE aerobic exercise. Assessment Summary Assessment Pt needed review of R shoulder ER stretch and may need a second review. Pt choosing to do cryotherapy at home to avoid extra charge, but requests use of ice after therapy at end, but avoiding charge. Pt very focused on performing exercise exactly as explained; therefore must be encouraged to perform per her tolerance. Fair tolerance to strengthening with UBE with onset of discomfort starting after only 5'45 of exercise, with complaint of pain into joint at region of posterior deltoid. Physical Therapy Plan Frequency and Duration Frequency of Treatment 2x/Week Duration of Treatment 4 weeks Plan of Care Start Date 05/21/20 Plan of Care End Date 07/05/20 Next Visit Focus/Plan Next Note Type Progress Note Next Visit Plan Next week reassess, new POC needed. Review HEP of shoulder ER stretch and chest press plus. Save some time for cryotherapy at end of treatment, but avoiding charge . Slowly progress rotator cuff strengthening for a R RC strain.
--- NOTE | 2020-06-26 17:23 | PT.OTN ---
Current Diagnoses Pain in unspecified shoulder (06/26/20) Muscle weakness (generalized) (06/26/20) Impingement syndrome of right shoulder (06/26/20) Physical Therapy Treatment Note PT-OP-A Visit Information Start: 05/21/20 14:19 Freq: Status: Active Protocol: Document 06/26/20 12:48 LRN (Rec: 06/26/20 13:35 LRN [id number]) Out-Patient Physical Therapy Visit Information Visit Information Visit Type Progress Note Visit Start Time 12:48 Visit Stop Time 13:38 Total Visit Minutes 50 Visit Number 5 Evaluation Information Evaluation Date 05/21/20 Precautions Precautions BiPolar Disorder Narcolepsy PT-OP-B Current Condition Start: 05/21/20 14:19 Freq: Status: Active Protocol: Document 05/21/20 09:00 DLM (Rec: 05/21/20 15:12 DLM [id number]) Current Condition History of Current Condition Onset Date 9 months hx Current Complaints right shoulder pain History of Current Condition She developed right shoulder pain 9 months ago. She reports at that time she was sleeping on her side with her hands between her knees and she thinks she irritated her shoulder. The pain has continued since that time and it limits the functional use or her right shoulder. Prior Treatments and Tests none Future Testing and Treatments Planned none planned Treatment Goals Patient/Caregiver Goals resolve the pain in right shoulder for normal use Prior Functional Status Baseline Function- ADL's Independent Baseline Function- Mobility Independent Baseline Function- Gait Independent without a device Baseline Function- Work/School she is unemployed Baseline Function- Recreation/Hobbies works out regularly; Aerobics, Lifting weights, Pilates, Walking Baseline Function- Other Right hand dominant Current Functional Impairments (Reported) Functional Limitations- ADL's pain reaching her back with right UE, pain reaching up, pain cleaning shower Functional Limitations- Mobility/Gait no changes Functional Limitations- Work/School she wants to get a job and is worried that her right shoulder pain will limit her ability to work, interested in applying for a cardiology technician or some type of emergency medical technician position Functional Limitations- Recreation/ right shoulder pain limits her Hobbies ability to do aerobics routine and lifting weights Functional Limitations- Other in her spare time she reads and spends time on the computer/phone Personal Factors Other Personal Factors That May Effect Bipolar disorder and Therapy/Recovery Narcolepsy PT-OP-C Subjective Start: 05/21/20 14:19 Freq: Status: Active Protocol: Document 06/26/20 12:48 LRN (Rec: 06/26/20 13:35 LRN [id number]) OP-PT Subjective Patient Comments Patient Comments Pt requests use of ice after treatment. No improvement this past week. Pain with movements (in same areas). States she is unable to lean on her R forearm for Pilates but thinks she could do it couple weeks ago. Not able to adhere to exercise regime this past week. Pt notes she is having trouble with her narcolepsy and she may need her meds adjusted. Patient Questionnaires Quick Dash- Upper Extremity Quick Dash UE Score 36 Quick Dash UE Impairment 20 to 39% Impaired (Score 20- 39) OP-PT Pain Assessment Location Right Shoulder Pain Location Details anterior and superior areas of right shoulder Intensity 2 Scale Used Numeric (0 - 10) Description Aching,With Movement Frequency Intermittent Pain Aggravating Factors Changing Position,Activity, Exercise Other Pain Aggravating Factors reaching up and behind her Pain Alleviating Factors Rest PT-OP-F Manual Assessment Start: 05/21/20 14:19 Freq: Status: Active Protocol: Document 05/21/20 09:00 DLM (Rec: 05/21/20 15:12 DLM [id number]) Manual Assessments Soft Tissue Assessment Soft Tissue Mobility Assessment soft tissue tightness anterior shoulder and biceps with tenderness Joint Mobility Assessment Joint Mobility Assessment mild to moderate decrease in post and inferior glides right shoulder compared to left PT-OP-J Posture/Palpation/Skin Start: 05/21/20 14:19 Freq: Status: Active Protocol: Document 05/21/20 09:00 DLM (Rec: 05/21/20 15:12 DLM [id number]) Posture Evaluation Comments Posture Comments flexed posture with rounded shoulders and forward head Palpation Assessment Location Right shoulder Palpation Location right shoulder joint area Palpation Findings Tenderness Palpation Details anterior shoulder joint tender , biceps tendon tender, No AC joint tenderness, mild to moderate tightness in her Upper trap, mild tightness right pect major, no scapular area tenderness PT-OP-K Range of Motion Start: 05/21/20 14:19 Freq: Status: Active Protocol: Document 06/26/20 12:48 LRN (Rec: 06/26/20 13:35 LRN [id number]) Shoulder Goniometric Range of Motion Shoulder Right Active Shoulder ROM WFL No Testing Position Supine Flexion 150 Abduction 80 External Rotation at 90 degrees 75 Abduction Internal Rotation 65 PT-OP-L Special Tests Start: 05/21/20 14:19 Freq: Status: Active Protocol: Document 05/21/20 09:00 DLM (Rec: 05/21/20 15:12 DLM [id number]) Special Tests Shoulder Special Tests Elevation Impingement Test Results positive on right Empty Can Test Results positive on right Drop Arm Rotator Cuff Test Results negative Apprehension Test Test Results negative on right Elbow Special Tests Raza Biceps Test Results negative PT-OP-M Strength Start: 05/21/20 14:19 Freq: Status: Active Protocol: Document 06/26/20 12:48 LRN (Rec: 06/26/20 13:35 LRN [id number]) Shoulder Strength Shoulder Manual Muscle Testing Right Abduction (C5) 4+ Good+ Horizontal Abduction 4 Good Horizontal Adduction 4 Good Comments Strength is 5/5 except as noted above with limitation due to pain. PT-OP-Q Treatments Start: 05/21/20 14:19 Freq: Status: Active Protocol: Document 06/26/20 12:48 LRN (Rec: 06/26/20 13:35 LRN [id number]) Cardio Equipment Upper Body Ergometer (UBE) Duration (Minutes) 5 RPM 70 Seat Position 10 Height 2 Other Blocks under feet Therapeutic Exercises Supine Exercises Chest Press Plus Supine Exercise Name Chest Press Plus Side bilateral Resistance 0#, 1# Equipment Used dbells Reps/Minutes 10x each ER stretch Supine Exercise Name ER Stretch, f/b active stretch Side right Comments Extra time taken due to pt narcolepsy behavior AAROM Shoulder flexion Supine Exercise Name Cane type ex for flexion ROM Side bilateral Resistance AAROM Reps/Minutes 10 reps Comments Extra time taken due to pt narcolepsy behavior PT-OP-R Modalities Start: 05/21/20 14:19 Freq: Status: Active Protocol: Document 06/26/20 12:48 LRN (Rec: 06/26/20 13:35 LRN [id number]) Hot Pack/Cold Pack Treatment Cold Pack Location right shoulder Patient Position Supine Treatment Duration (minutes) 10 Patient Tolerance Good PT-OP-T Assessment and Plan Start: 05/21/20 14:19 Freq: Status: Active Protocol: Document 06/26/20 12:48 LRN (Rec: 06/26/20 13:35 LRN [id number]) Physical Therapy Assessment Rehab Potential Rehabilitation Potential Good Evaluation Complexity Number of Personal Factors/Comorbidities 1-2 Number of Body Systems Impaired 4 or More Clinical Presentation at Evaluation Evolving Impairments Impairments Functional Activities,Pain, Posture,ROM,Soft Tissue Mobility,Strength Goals Strength Impairment Right shoulder weakness with pain Short Term Goal (STG) Increase right shoulder strength to 4+/5 (06/26/20: Flex, Ext, ER, IR is 5/5; AB is 4+/5, horiz AB/AD is 4/5). STG Duration 07/23/20 (06/26/20: Improved, but pain with AB, horiz AB/AD ) Accounts Specialist Goal (LTG) Return to regular aerobic and weight lifting exercise routine at home. (06/26/20: Pt has returned to Pilates). LTG Duration 08/25/20 (06/26/20: NOT MET) ROM Impairment Right shoulder limited with pain Short Term Goal (STG) Increase shoulder flexion to 170 degrees and abduction to 150 degrees. (06/26/20: R shoulder active flex in supine is 150 deg's, AB is 80 deg's) STG Duration 07/23/20 (06/26/20: Improved flex, no change AB) Accounts Specialist Goal (LTG) Increase right shoulder AROM to WNL LTG Duration 08/25/20 Pain Impairment 2/10 pain, limited ROM and strength Short Term Goal (STG) She will be able to reach up over head without increased pain STG Duration 07/23/20 (06/26/20: NOT MET) Residential Goal (LTG) She will be able to reach behind her back without increased pain LTG Duration 08/25/20 (06/26/20: NOT MET) Progress Towards Goals Progress Comments Function improved per UE QuickDASH score of 36.36 (29- 39% impaired) compared to initially a score of 40.9 (40 to 59% impaired). Assessment Summary Assessment Pt lethargic today and falling asleep during exercises. Her pain complaints are about the same, but her tolerance to exercise and her R shoulder strength has improved. R shoulder mobility has improved with flex and is same for AB. Her ROM is limited by pain. Pt would benefit from continuation of skilled physical therapy to improve her R shoulder strength and mobility and reducing her pain to return her to her prior level. The pt's progress has been slow due to her wanting to attend therapy 1x/week and hinderence to tolerance due to her comorbidities. Physical Therapy Plan Frequency and Duration Frequency of Treatment 2x/Week Duration of Treatment 4 weeks Plan of Care Start Date 06/26/20 Plan of Care End Date 08/25/20 Therapeutic Interventions Therapeutic Interventions Home Exercise Program,Joint Mobilizations,Manual Therapy, Patient/Caregiver Education, Self-Care/Home Management,Soft Tissue Mobilization,Taping, Therapeutic Activities, Therapeutic Exercises Modalities Cold Pack/Ice Massage,Electric Stimulation,Hot Packs, Ultrasound Next Visit Focus/Plan Next Note Type Treatment Note Next Visit Plan Review HEP of shoulder ER stretch and chest press plus. Save some time for cryotherapy at end of treatment, avoiding charge. Slowly progress rotator cuff strengthening for a R RC strain. Check for SHR and stabilization as needed. Check Capsule.
--- NOTE | 2020-06-26 17:25 | PT.OPPN ---
Current Diagnoses Pain in unspecified shoulder (06/26/20) Muscle weakness (generalized) (06/26/20) Impingement syndrome of right shoulder (06/26/20) Physical Therapy Progress Note PT-OP-A Visit Information Start: 05/21/20 14:19 Freq: Status: Active Protocol: Document 06/26/20 12:48 LRN (Rec: 06/26/20 13:35 LRN [id number]) Out-Patient Physical Therapy Visit Information Visit Information Visit Type Progress Note Visit Start Time 12:48 Visit Stop Time 13:38 Total Visit Minutes 50 Visit Number 5 Evaluation Information Evaluation Date 05/21/20 Precautions Precautions BiPolar Disorder Narcolepsy PT-OP-B Current Condition Start: 05/21/20 14:19 Freq: Status: Active Protocol: Document 05/21/20 09:00 DLM (Rec: 05/21/20 15:12 DLM [id number]) Current Condition History of Current Condition Onset Date 9 months hx Current Complaints right shoulder pain History of Current Condition She developed right shoulder pain 9 months ago. She reports at that time she was sleeping on her side with her hands between her knees and she thinks she irritated her shoulder. The pain has continued since that time and it limits the functional use or her right shoulder. Prior Treatments and Tests none Future Testing and Treatments Planned none planned Treatment Goals Patient/Caregiver Goals resolve the pain in right shoulder for normal use Prior Functional Status Baseline Function- ADL's Independent Baseline Function- Mobility Independent Baseline Function- Gait Independent without a device Baseline Function- Work/School she is unemployed Baseline Function- Recreation/Hobbies works out regularly; Aerobics, Lifting weights, Pilates, Walking Baseline Function- Other Right hand dominant Current Functional Impairments (Reported) Functional Limitations- ADL's pain reaching her back with right UE, pain reaching up, pain cleaning shower Functional Limitations- Mobility/Gait no changes Functional Limitations- Work/School she wants to get a job and is worried that her right shoulder pain will limit her ability to work, 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 in applying for a retail pharmacy manager or some 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 No improvement this past week. Pain with movements (in same areas). States she is unable to lean on her R forearm for Pilates but thinks she could do it couple weeks ago. Not able to adhere to exercise regime this past week. Pt notes she is having trouble with her narcolepsy and she may need her meds adjusted. Patient Questionnaires Quick Dash- Upper Extremity Quick Dash UE Score 36 Quick Dash UE Impairment 20 to 39% Impaired (Score 20- 39) OP-PT Pain Assessment Location Right Shoulder Pain Location Details anterior and superior areas of right shoulder Intensity 2 Scale Used Numeric (0 - 10) Description Aching,With Movement Frequency Intermittent Pain Aggravating Factors Changing Position,Activity, Exercise Other Pain Aggravating Factors reaching up and behind her Pain Alleviating Factors Rest PT-OP-F Manual Assessment Start: 05/21/20 14:19 Freq: Status: Active Protocol: Document 05/21/20 09:00 DLM (Rec: 05/21/20 15:12 DLM [id number]) Manual Assessments Soft Tissue Assessment Soft Tissue Mobility Assessment soft tissue tightness anterior shoulder and biceps with tenderness Joint Mobility Assessment Joint Mobility Assessment mild to moderate decrease in post and inferior glides right shoulder compared to left PT-OP-J Posture/Palpation/Skin Start: 05/21/20 14:19 Freq: Status: Active Protocol: Document 05/21/20 09:00 DLM (Rec: 05/21/20 15:12 DLM [id number]) Posture Evaluation Comments Posture Comments flexed posture with rounded shoulders and forward head Palpation Assessment Location Right shoulder Palpation Location right shoulder joint area Palpation Findings Tenderness Palpation Details anterior shoulder joint tender , biceps tendon tender, No AC joint tenderness, mild to moderate tightness in her Upper trap, mild tightness right pect major, no scapular area tenderness PT-OP-K Range of Motion Start: 05/21/20 14:19 Freq: Status: Active Protocol: Document 06/26/20 12:48 LRN (Rec: 06/26/20 13:35 LRN [id number]) Shoulder Goniometric Range of Motion Shoulder Measured in Degrees Right Active Shoulder ROM WFL No Testing Position Supine Flexion 150 Abduction 80 External Rotation at 90 degrees 75 Abduction Internal Rotation 65 PT-OP-L Special Tests Start: 05/21/20 14:19 Freq: Status: Active Protocol: Document 05/21/20 09:00 DLM (Rec: 05/21/20 15:12 DLM [id number]) Special Tests Shoulder Special Tests Elevation Impingement Test Results positive on right Empty Can Test Results positive on right Drop Arm Rotator Cuff Test Results negative Apprehension Test Test Results negative on right Elbow Special Tests Raza Biceps Test Results negative PT-OP-M Strength Start: 05/21/20 14:19 Freq: Status: Active Protocol: Document 06/26/20 12:48 LRN (Rec: 06/26/20 13:35 LRN [id number]) Shoulder Strength Shoulder Manual Muscle Testing Right Abduction (C5) 4+ Good+ Horizontal Abduction 4 Good Horizontal Adduction 4 Good Comments Strength is 5/5 except as noted above with limitation due to pain. PT-OP-T Assessment and Plan Start: 05/21/20 14:19 Freq: Status: Active Protocol: Document 06/26/20 12:48 LRN (Rec: 06/26/20 13:35 LRN [id number]) Physical Therapy Assessment Rehab Potential Rehabilitation Potential Good Evaluation Complexity Number of Personal Factors/Comorbidities 1-2 Number of Body Systems Impaired 4 or More Clinical Presentation at Evaluation Evolving Impairments Impairments Functional Activities,Pain, Posture,ROM,Soft Tissue Mobility,Strength Goals Strength Impairment Right shoulder weakness with pain Short Term Goal (STG) Increase right shoulder strength to 4+/5 (06/26/20: Flex, Ext, ER, IR is 5/5; AB is 4+/5, horiz AB/AD is 4/5). STG Duration 07/23/20 (06/26/20: Improved, but pain with AB, horiz AB/AD ) Usp Goal (LTG) Return to regular aerobic and weight lifting exercise routine at home. (06/26/20: Pt has returned to Pilates). LTG Duration 08/25/20 (06/26/20: NOT MET) ROM Impairment Right shoulder limited with pain Short Term Goal (STG) Increase shoulder flexion to 170 degrees and abduction to 150 degrees. (06/26/20: R shoulder active flex in supine is 150 deg's, AB is 80 deg's) STG Duration 07/23/20 (06/26/20: Improved flex, no change AB) Physician Surgeon Goal (LTG) Increase right shoulder AROM to WNL LTG Duration 08/25/20 Pain Impairment 2/10 pain, limited ROM and strength Short Term Goal (STG) She will be able to reach up over head without increased pain STG Duration 07/23/20 (06/26/20: NOT MET) Physician Surgeon Goal (LTG) She will be able to reach behind her back without increased pain LTG Duration 08/25/20 (06/26/20: NOT MET) Progress Towards Goals Progress Comments Function improved per UE QuickDASH score of 36.36 (29- 39% impaired) compared to initially a score of 40.9 (40 to 59% impaired). Assessment Summary Assessment Pt lethargic today and falling asleep during exercises. Her pain complaints are about the same, but her tolerance to exercise and her R shoulder strength has improved. R shoulder mobility has improved with flex and is same for AB. Her ROM is limited by pain. Pt would benefit from continuation of skilled physical therapy to improve her R shoulder strength and mobility and reducing her pain to return her to her prior level. The pt's progress has been slow due to her wanting to attend therapy 1x/week and hindrance to tolerance due to her comorbidities. Physical Therapy Plan Frequency and Duration Frequency of Treatment 2x/Week Duration of Treatment 4 weeks Plan of Care Start Date 06/26/20 Plan of Care End Date 08/25/20 Therapeutic Interventions Therapeutic Interventions Home Exercise Program,Joint Mobilizations,Manual Therapy, Patient/Caregiver Education, Self-Care/Home Management,Soft Tissue Mobilization,Taping, Therapeutic Activities, Therapeutic Exercises Modalities Cold Pack/Ice Massage,Electric Stimulation,Hot Packs, Ultrasound Next Visit Focus/Plan Next Note Type Treatment Note Next Visit Plan Review HEP of shoulder ER stretch and chest press plus. Save some time for cryotherapy at end of treatment, avoiding charge. Slowly progress rotator cuff strengthening for a R RC strain. Check for SHR and stabilization as needed. Check Capsule.
--- NOTE | 2020-06-26 17:26 | PT.OPPOC ---
Physical, Occupational & Speech Therapy At [facility] Current Diagnoses Pain in unspecified shoulder (06/26/20) Muscle weakness (generalized) (06/26/20) Impingement syndrome of right shoulder (06/26/20) Visit Care Team Role Provider Type JUAN Tay Attending Provider Advanced Materials Scientist Primary Care Provider Referring Provider Specialty: Medical Address: [address] [place] [address], [facility] Email: [email or web address] Plan Of Care PT-OP-T Assessment and Plan Start: 05/21/20 14:19 Freq: Status: Active Protocol: Document 06/26/20 12:48 LRN (Rec: 06/26/20 13:35 LRN [id number]) Physical Therapy Assessment Rehab Potential Rehabilitation Potential Good Evaluation Complexity Number of Personal Factors/Comorbidities 1-2 Number of Body Systems Impaired 4 or More Clinical Presentation at Evaluation Evolving Impairments Impairments Functional Activities,Pain, Posture,ROM,Soft Tissue Mobility,Strength Goals Strength Impairment Right shoulder weakness with pain Short Term Goal (STG) Increase right shoulder strength to 4+/5 (06/26/20: Flex, Ext, ER, IR is 5/5; AB is 4+/5, horiz AB/AD is 4/5). STG Duration 07/23/20 (06/26/20: Improved, but pain with AB, horiz AB/AD ) Halfway Goal (LTG) Return to regular aerobic and weight lifting exercise routine at home. (06[facility]26[facility]20: [facility] LTG Duration 08/25/20 (06/26/20: NOT MET) ROM Impairment Right shoulder limited with pain Short Term Goal (STG) Increase shoulder flexion to 170 degrees and abduction to 150 degrees. (06/26/20: R shoulder active flex in supine is 150 deg's, AB is 80 deg's) STG Duration 07/23/20 (06/26/20: Improved flex, no change AB) Mapping Editor Goal (LTG) Increase right shoulder AROM to WNL LTG Duration 08/25/20 Pain Impairment 2/10 pain, limited ROM and strength Short Term Goal (STG) She will be able to reach up over head without increased pain STG Duration 07/23/20 (06/26/20: NOT MET) Mapping Editor Goal (LTG) She will be able to reach behind her back without increased pain LTG Duration 08/25/20 (06/26/20: NOT MET) Progress Towards Goals Progress Comments Function improved per UE QuickDASH score of 36.36 (29- 39% impaired) compared to initially a score of 40.9 (40 to 59% impaired). Assessment Summary Assessment Pt lethargic today and falling asleep during exercises. Her pain complaints are about the same, but her tolerance to exercise and her R shoulder strength has improved. R shoulder mobility has improved with flex and is same for AB. Her ROM is limited by pain. Pt would benefit from continuation of skilled physical therapy to improve her R shoulder strength and mobility and reducing her pain to return her to her prior level. The pt's progress has been slow due to her wanting to attend therapy 1x/week and hindrance to tolerance due to her comorbidities. Physical Therapy Plan Frequency and Duration Frequency of Treatment 2x/Week Duration of Treatment 4 weeks Plan of Care Start Date 06/26/20 Plan of Care End Date 08/25/20 Therapeutic Interventions Therapeutic Interventions Home Exercise Program,Joint Mobilizations,Manual Therapy, Patient/Caregiver Education, Self-Care/Home Management,Soft Tissue Mobilization,Taping, Therapeutic Activities, Therapeutic Exercises Modalities Cold Pack/Ice Massage,Electric Stimulation,Hot Packs, Ultrasound Next Visit Focus/Plan Next Note Type Treatment Note Next Visit Plan Review HEP of shoulder ER stretch and chest press plus. Save some time for cryotherapy at end of treatment, avoiding charge. Slowly progress rotator cuff strengthening for a R RC strain. Check for SHR and stabilization as needed. Check Capsule. Plan of Care Dates Plan of Care Start Date 06/26/20 Plan of Care End Date 08/25/20 Electronically Signed by: Rachel Wilder, PT 06/26/20 2191 Please Sign and Return: I have reviewed this Plan of Care and certify that the skilled therapy services above are required to meet the patient?s needs. Physician Signature Date Printed Name and Credentials Clinical Instructor Signature Printed Name and Credentials
--- NOTE | 2020-07-03 14:04 | PT.OTN ---
Current Diagnoses Pain in unspecified shoulder (07/03/20) Muscle weakness (generalized) (07/03/20) Impingement syndrome of right shoulder (07/03/20) Physical Therapy Treatment Note PT-OP-A Visit Information Start: 05/21/20 14:19 Freq: Status: Active Protocol: Document 07/03/20 12:48 LRN (Rec: 07/03/20 13:32 LRN [id number]) Out-Patient Physical Therapy Visit Information Visit Information Visit Type Treatment Note Visit Start Time 12:48 Visit Stop Time 13:40 Total Visit Minutes 52 Visit Number 6 Evaluation Information Evaluation Date 05/21/20 Precautions Precautions BiPolar Disorder Narcolepsy PT-OP-B Current Condition Start: 05/21/20 14:19 Freq: Status: Active Protocol: Document 05/21/20 09:00 DLM (Rec: 05/21/20 15:12 DLM [id number]) Current Condition History of Current Condition Onset Date 9 months hx Current Complaints right shoulder pain History of Current Condition She developed right shoulder pain 9 months ago. She reports at that time she was sleeping on her side with her hands between her knees and she thinks she irritated her shoulder. The pain has continued since that time and it limits the functional use or her right shoulder. Prior Treatments and Tests none Future Testing and Treatments Planned none planned Treatment Goals Patient/Caregiver Goals resolve the pain in right shoulder for normal use Prior Functional Status Baseline Function- ADL's Independent Baseline Function- Mobility Independent Baseline Function- Gait Independent without a device Baseline Function- Work/School she is unemployed Baseline Function- Recreation/Hobbies works out regularly; Aerobics, Lifting weights, Pilates, Walking Baseline Function- Other Right hand dominant Current Functional Impairments (Reported) Functional Limitations- ADL's pain reaching her back with right UE, pain reaching up, pain cleaning shower Functional Limitations- Mobility/Gait no changes Functional Limitations- Work/School she wants to get a job and is worried that her right shoulder pain will limit her ability to work, interested in applying for a pharmacy helper or some 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 Not tired. After exercises, can move arm up/ down without pain. Pain with side motions. PT-OP-F Manual Assessment Start: 05/21/20 14:19 Freq: Status: Active Protocol: Document 05/21/20 09:00 DLM (Rec: 05/21/20 15:12 DLM [id number]) Manual Assessments Soft Tissue Assessment Soft Tissue Mobility Assessment soft tissue tightness anterior shoulder and biceps with tenderness Joint Mobility Assessment Joint Mobility Assessment mild to moderate decrease in post and inferior glides right shoulder compared to left PT-OP-J Posture/Palpation/Skin Start: 05/21/20 14:19 Freq: Status: Active Protocol: Document 05/21/20 09:00 DLM (Rec: 05/21/20 15:12 DLM [id number]) Posture Evaluation Comments Posture Comments flexed posture with rounded shoulders and forward head Palpation Assessment Location Right shoulder Palpation Location right shoulder joint area Palpation Findings Tenderness Palpation Details anterior shoulder joint tender , biceps tendon tender, No AC joint tenderness, mild to moderate tightness in her Upper trap, mild tightness right pect major, no scapular area tenderness PT-OP-K Range of Motion Start: 05/21/20 14:19 Freq: Status: Active Protocol: Document 06/26/20 12:48 LRN (Rec: 06/26/20 13:35 LRN [id number]) Shoulder Goniometric Range of Motion Shoulder Right Active Shoulder ROM WFL No Testing Position Supine Flexion 150 Abduction 80 External Rotation at 90 degrees 75 Abduction Internal Rotation 65 PT-OP-L Special Tests Start: 05/21/20 14:19 Freq: Status: Active Protocol: Document 05/21/20 09:00 DLM (Rec: 05/21/20 15:12 DLM [id number]) Special Tests Shoulder Special Tests Elevation Impingement Test Results positive on right Empty Can Test Results positive on right Drop Arm Rotator Cuff Test Results negative Apprehension Test Test Results negative on right Elbow Special Tests Raza Biceps Test Results negative PT-OP-M Strength Start: 05/21/20 14:19 Freq: Status: Active Protocol: Document 06/26/20 12:48 LRN (Rec: 06/26/20 13:35 LRN [id number]) Shoulder Strength Shoulder Manual Muscle Testing Right Abduction (C5) 4+ Good+ Horizontal Abduction 4 Good Horizontal Adduction 4 Good Comments Strength is 5/5 except as noted above with limitation due to pain. PT-OP-Q Treatments Start: 05/21/20 14:19 Freq: Status: Active Protocol: Document 07/03/20 12:48 LRN (Rec: 07/03/20 13:32 LRN [id number]) Cardio Equipment Upper Body Ergometer (UBE) Duration (Minutes) 5 RPM 70 Seat Position 10 Height 2 Other Blocks under feet Therapeutic Exercises Supine Exercises Lat pull down Supine Exercise Name Lat Pull Down Side bilateral Equipment Used Cane, Lev 1 TB Reps/Minutes 10x extra time for training and identifying tolerance Comments Trng needed to start for pt awareness of scapular mvmt Shoulder AB Supine Exercise Name Shoulder AB with and without assist Side right Chest Press Plus Supine Exercise Name Chest Press Plus Side bilateral Resistance 0#, 1# Equipment Used dbells Reps/Minutes 10x each ER stretch Supine Exercise Name ER Stretch, f/b active stretch Side right Comments Extra time taken due to pt narcolepsy behavior AAROM Shoulder flexion Supine Exercise Name Cane type ex for flexion ROM Side bilateral Resistance AAROM Reps/Minutes 10 reps Comments Extra time taken due to pt narcolepsy behavior Sitting Exercises Pulleys Sitting Exercise Name MWM for AB with ceci to asssit Side right Equipment Used belt maker to hold humeral head in inferior glide. Reps/Minutes 15' Comments Manual assist for posterior glide of humeral head with AB. PT-OP-R Modalities Start: 05/21/20 14:19 Freq: Status: Active Protocol: Document 07/03/20 12:48 LRN (Rec: 07/03/20 13:32 LRN [id number]) Hot Pack/Cold Pack Treatment Cold Pack Location right shoulder Patient Position Supine Treatment Duration (minutes) 10 Patient Tolerance Good PT-OP-T Assessment and Plan Start: 05/21/20 14:19 Freq: Status: Active Protocol: Document 07/03/20 12:48 LRN (Rec: 07/03/20 13:32 LRN [id number]) Physical Therapy Assessment Goals Strength Impairment Right shoulder weakness with pain Short Term Goal (STG) Increase right shoulder strength to 4+/5 (06/26/20: Flex, Ext, ER, IR is 5/5; AB is 4+/5, horiz AB/AD is 4/5). STG Duration 07/23/20 (06/26/20: Improved, but pain with AB, horiz AB/AD ) Group Home Goal (LTG) Return to regular aerobic and weight lifting exercise routine at home. (06/26/20: Pt has returned to Pilates). LTG Duration 08/25/20 (06/26/20: NOT MET) ROM Impairment Right shoulder limited with pain Short Term Goal (STG) Increase shoulder flexion to 170 degrees and abduction to 150 degrees. (06/26/20: R shoulder active flex in supine is 150 deg's, AB is 80 deg's) STG Duration 07/23/20 (06/26/20: Improved flex, no change AB) Display Mechanic Goal (LTG) Increase right shoulder AROM to WNL LTG Duration 08/25/20 Pain Impairment 2/10 pain, limited ROM and strength Short Term Goal (STG) She will be able to reach up over head without increased pain STG Duration 07/23/20 (06/26/20: NOT MET) Group Home Goal (LTG) She will be able to reach behind her back without increased pain LTG Duration 08/25/20 (06/26/20: NOT MET) Assessment Summary Assessment Pt mostly awake with therapy. Pt presents with decreased inferior glide of humerus with AB and humeral head may be too forward with shoulder strap correction. Impingment diagnosis. Pt has variable pain complaints of intrascapular pain to posterior, then anterior GHJ pain with shoulder AB. Pt primary dysfunction today is with shoulder end-range AB. No c/o pain after 5' on UBE. Physical Therapy Plan Frequency and Duration Frequency of Treatment 2x/Week Duration of Treatment 4 weeks Plan of Care Start Date 06/26/20 Plan of Care End Date 08/25/20 Next Visit Focus/Plan Next Note Type Treatment Note Next Visit Plan Incr UBE time. Review shoulder AB AROM with scapular retraining and issue if needed, handout for shoulder AB. Stretch capsule inferior. Save some time for cryotherapy at end of treatment, avoiding charge. Slowly progress rotator cuff strengthening for a R RC strain. Check for SHR and stabilization as needed.
--- NOTE | 2020-07-06 09:21 | PT.OTN ---
Current Diagnoses Pain in unspecified shoulder (07/06/20) Muscle weakness (generalized) (07/06/20) Impingement syndrome of right shoulder (07/06/20) Physical Therapy Treatment Note PT-OP-A Visit Information Start: 05/21/20 14:19 Freq: Status: Active Protocol: Document 07/06/20 08:17 LRN (Rec: 07/06/20 09:19 LRN [id number]) Out-Patient Physical Therapy Visit Information Visit Information Visit Type Treatment Note Visit Start Time 08:17 Visit Stop Time 08:59 Total Visit Minutes 52 Visit Number 7 Evaluation Information Evaluation Date 05/21/20 Precautions Precautions BiPolar Disorder Narcolepsy PT-OP-B Current Condition Start: 05/21/20 14:19 Freq: Status: Active Protocol: Document 05/21/20 09:00 DLM (Rec: 05/21/20 15:12 DLM [id number]) Current Condition History of Current Condition Onset Date 9 months hx Current Complaints right shoulder pain History of Current Condition She developed right shoulder pain 9 months ago. She reports at that time she was sleeping on her side with her hands between her knees and she thinks she irritated her shoulder. The pain has continued since that time and it limits the functional use or her right shoulder. Prior Treatments and Tests none Future Testing and Treatments Planned none planned Treatment Goals Patient/Caregiver Goals resolve the pain in right shoulder for normal use Prior Functional Status Baseline Function- ADL's Independent Baseline Function- Mobility Independent Baseline Function- Gait Independent without a device Baseline Function- Work/School she is unemployed Baseline Function- Recreation/Hobbies works out regularly; Aerobics, Lifting weights, Pilates, Walking Baseline Function- Other Right hand dominant Current Functional Impairments (Reported) Functional Limitations- ADL's pain reaching her back with right UE, pain reaching up, pain cleaning shower Functional Limitations- Mobility/Gait no changes Functional Limitations- Work/School she wants to get a job and is worried that her right shoulder pain will limit her ability to work, interested in applying for a hospital pharmacy technician or some type of medical billing assistant position Functional Limitations- Recreation/ right shoulder pain limits her Hobbies ability to do aerobics routine and lifting weights Functional Limitations- Other in her spare time she reads and spends time on the computer/phone Personal Factors Other Personal Factors That May Effect Bipolar disorder and Therapy/Recovery Narcolepsy PT-OP-C Subjective Start: 05/21/20 14:19 Freq: Status: Active Protocol: Document 07/06/20 08:17 LRN (Rec: 07/06/20 09:19 LRN [id number]) OP-PT Subjective Patient Comments Patient Comments Did good with exercises at home. States she thinks she has more motion. PT-OP-F Manual Assessment Start: 05/21/20 14:19 Freq: Status: Active Protocol: Document 05/21/20 09:00 DLM (Rec: 05/21/20 15:12 DLM [id number]) Manual Assessments Soft Tissue Assessment Soft Tissue Mobility Assessment soft tissue tightness anterior shoulder and biceps with tenderness Joint Mobility Assessment Joint Mobility Assessment mild to moderate decrease in post and inferior glides right shoulder compared to left PT-OP-J Posture/Palpation/Skin Start: 05/21/20 14:19 Freq: Status: Active Protocol: Document 05/21/20 09:00 DLM (Rec: 05/21/20 15:12 DLM [id number]) Posture Evaluation Comments Posture Comments flexed posture with rounded shoulders and forward head Palpation Assessment Location Right shoulder Palpation Location right shoulder joint area Palpation Findings Tenderness Palpation Details anterior shoulder joint tender , biceps tendon tender, No AC joint tenderness, mild to moderate tightness in her Upper trap, mild tightness right pect major, no scapular area tenderness PT-OP-K Range of Motion Start: 05/21/20 14:19 Freq: Status: Active Protocol: Document 07/06/20 08:17 LRN (Rec: 07/06/20 09:19 LRN [id number]) Shoulder Goniometric Range of Motion Shoulder R Active Sitting Testing Position Sitting Flexion 147 Extension 65 Abduction 121 Comments Painfree AROM Right Active Testing Position Supine PT-OP-L Special Tests Start: 05/21/20 14:19 Freq: Status: Active Protocol: Document 05/21/20 09:00 DLM (Rec: 05/21/20 15:12 DLM [id number]) Special Tests Shoulder Special Tests Elevation Impingement Test Results positive on right Empty Can Test Results positive on right Drop Arm Rotator Cuff Test Results negative Apprehension Test Test Results negative on right Elbow Special Tests Raza Biceps Test Results negative PT-OP-M Strength Start: 05/21/20 14:19 Freq: Status: Active Protocol: Document 06/26/20 12:48 LRN (Rec: 06/26/20 13:35 LRN [id number]) Shoulder Strength Shoulder Manual Muscle Testing Right Abduction (C5) 4+ Good+ Horizontal Abduction 4 Good Horizontal Adduction 4 Good Comments Strength is 5/5 except as noted above with limitation due to pain. PT-OP-Q Treatments Start: 05/21/20 14:19 Freq: Status: Active Protocol: Document 07/06/20 08:17 LRN (Rec: 07/06/20 09:19 LRN [id number]) Cardio Equipment Upper Body Ergometer (UBE) Duration (Minutes) 6 RPM 70 Seat Position 10 Height 2 Other Blocks under feet Therapeutic Exercises Sitting Exercises Pulleys Sitting Exercise Name MWM for AB with ceci to asssit Side right Equipment Used belt and link assembly supervisor to hold humeral head in inferior glide. Reps/Minutes 15' Comments Manual assist for posterior glide of humeral head with AB. Standing Exercises Scapular depression/rotation Standing Exercise Name Scapular oblique drops Side bilateral Reps/Minutes 4' Comments Phys cuing needed for sitting up properly Manual Therapy Treatment Taping K-tape R shoulder Body Location R Infraspinatus & Deltoid ( anter/loop puller) Treatment Focus Facilitation Type of Tape Kinesio Tape Skin Inspection Very healthy Comments 2- 1/2 width I-strips anterior deltoid for support. 1-I-strip loop puller Deltoid for factilitatioin 1-Y Strip Infraspinatus: facilitation. Manual Techniques MWM Type MWM R shoulder for post glide humeral head with strap for infer glide Body Location R shoulder Body Position Sitting Reps/Duration 6' Self-Care/Home Management Treatment Education Other Education Educated pt in proper removal & wear time of K-tape. Educated pt in signs of allergic reaction w/ instructions to remove immediately with signs. Activities Self-Care/Home Management Activities I/S pt to remove K-tape on day 5 of wear or sooner if discomfort. PT-OP-R Modalities Start: 05/21/20 14:19 Freq: Status: Active Protocol: Document 07/06/20 08:17 LRN (Rec: 07/06/20 09:19 LRN [id number]) Hot Pack/Cold Pack Treatment Cold Pack Location right shoulder Patient Position Supine Treatment Duration (minutes) 10 Patient Tolerance Good PT-OP-T Assessment and Plan Start: 05/21/20 14:19 Freq: Status: Active Protocol: Document 07/06/20 08:17 LRN (Rec: 07/06/20 09:19 LRN [id number]) Physical Therapy Assessment Goals Strength Impairment Right shoulder weakness with pain Short Term Goal (STG) Increase right shoulder strength to 4+/5 (06/26/20: Flex, Ext, ER, IR is 5/5; AB is 4+/5, horiz AB/AD is 4/5). STG Duration 07/23/20 (06/26/20: Improved, but pain with AB, horiz AB/AD ) Grocery Clerk Checking Goal (LTG) Return to regular aerobic and weight lifting exercise routine at home. (06/26/20: Pt has returned to Pilates). LTG Duration 08/25/20 (06/26/20: NOT MET) ROM Impairment Right shoulder limited with pain Short Term Goal (STG) Increase shoulder flexion to 170 degrees and abduction to 150 degrees. (06/26/20: R shoulder active flex in supine is 150 deg's, AB is 80 deg's) STG Duration 07/23/20 (06/26/20: Improved flex, no change AB) Grocery Clerk Checking Goal (LTG) Increase right shoulder AROM to WNL LTG Duration 08/25/20 Pain Impairment 2/10 pain, limited ROM and strength Short Term Goal (STG) She will be able to reach up over head without increased pain STG Duration 07/23/20 (06/26/20: NOT MET) Grocery Clerk Checking Goal (LTG) She will be able to reach behind her back without increased pain LTG Duration 08/25/20 (06/26/20: NOT MET) Progress Towards Goals Progress Comments Sitting Active shoulder flex ( sitting) measures at 147 deg's , but with MWM pt demonstrates 170 deg's with cuing of good posture. Assessment Summary Assessment R Impingement with roving pain in R shoulder joint and Deltoid. Need closer review of shoulder AB ex. Needs scapular retraction & RC strengthening. No pain with increased UBE time. + response to MWM, increased ROM without sharp pain. K-tape helps eliminate pain at shoulder, but doesn't effect pain in Deltoid at ~attachment on humerus. Physical Therapy Plan Frequency and Duration Frequency of Treatment 2x/Week Duration of Treatment 4 weeks Plan of Care Start Date 06/26/20 Plan of Care End Date 08/25/20 Next Visit Focus/Plan Next Note Type Treatment Note Next Visit Plan Incr UBE time. Review shoulder AB AROM with scapular retraining and issue if needed, handout for shoulder AB. Stretch capsule inferior. Save some time for cryotherapy at end of treatment, avoiding charge. Slowly progress rotator cuff strengthening for a R RC strain. Check for SHR and stabilization as needed.
--- NOTE | 2020-07-13 16:48 | PT.OTN ---
Current Diagnoses Pain in unspecified shoulder (07/13/20) Muscle weakness (generalized) (07/13/20) Impingement syndrome of right shoulder (07/13/20) Physical Therapy Treatment Note PT-OP-A Visit Information Start: 05/21/20 14:19 Freq: Status: Active Protocol: Document 07/13/20 08:15 LRN (Rec: 07/13/20 09:05 LRN [id number]) Out-Patient Physical Therapy Visit Information Visit Information Visit Type Treatment Note Visit Start Time 08:15 Visit Stop Time 09:58 Total Visit Minutes 43 Visit Number 8 Evaluation Information Evaluation Date 05/21/20 Precautions Precautions BiPolar Disorder Narcolepsy PT-OP-B Current Condition Start: 05/21/20 14:19 Freq: Status: Active Protocol: Document 05/21/20 09:00 DLM (Rec: 05/21/20 15:12 DLM [id number]) Current Condition History of Current Condition Onset Date 9 months hx Current Complaints right shoulder pain History of Current Condition She developed right shoulder pain 9 months ago. She reports at that time she was sleeping on her side with her hands between her knees and she thinks she irritated her shoulder. The pain has continued since that time and it limits the functional use or her right shoulder. Prior Treatments and Tests none Future Testing and Treatments Planned none planned Treatment Goals Patient/Caregiver Goals resolve the pain in right shoulder for normal use Prior Functional Status Baseline Function- ADL's Independent Baseline Function- Mobility Independent Baseline Function- Gait Independent without a device Baseline Function- Work/School she is unemployed Baseline Function- Recreation/Hobbies works out regularly; Aerobics, Lifting weights, Pilates, Walking Baseline Function- Other Right hand dominant Current Functional Impairments (Reported) Functional Limitations- ADL's pain reaching her back with right UE, pain reaching up, pain cleaning shower Functional Limitations- Mobility/Gait no changes Functional Limitations- Work/School she wants to get a job and is worried that her right shoulder pain will limit her ability to work, 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 in 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 for a coil repair technician or some 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 of medical claims processor position Functional Limitations- Recreation/ right shoulder pain limits her Hobbies ability to do aerobics routine and lifting weights Functional Limitations- Other in her spare time she reads and spends time on the computer/phone Personal Factors Other Personal Factors That May Effect Bipolar disorder and Therapy/Recovery Narcolepsy PT-OP-C Subjective Start: 05/21/20 14:19 Freq: Status: Active Protocol: Document 07/13/20 08:15 LRN (Rec: 07/13/20 09:05 LRN [id number]) OP-PT Subjective Patient Comments Patient Comments R shoulder is doing better because when doing the overhead (shoulder flex stretch), she hardly has any pain. PT-OP-F Manual Assessment Start: 05/21/20 14:19 Freq: Status: Active Protocol: Document 05/21/20 09:00 DLM (Rec: 05/21/20 15:12 DLM [id number]) Manual Assessments Soft Tissue Assessment Soft Tissue Mobility Assessment soft tissue tightness anterior shoulder and biceps with tenderness Joint Mobility Assessment Joint Mobility Assessment mild to moderate decrease in post and inferior glides right shoulder compared to left PT-OP-J Posture/Palpation/Skin Start: 05/21/20 14:19 Freq: Status: Active Protocol: Document 05/21/20 09:00 DLM (Rec: 05/21/20 15:12 DLM [id number]) Posture Evaluation Comments Posture Comments flexed posture with rounded shoulders and forward head Palpation Assessment Location Right shoulder Palpation Location right shoulder joint area Palpation Findings Tenderness Palpation Details anterior shoulder joint tender , biceps tendon tender, No AC joint tenderness, mild to moderate tightness in her Upper trap, mild tightness right pect major, no scapular area tenderness PT-OP-K Range of Motion Start: 05/21/20 14:19 Freq: Status: Active Protocol: Document 07/06/20 08:17 LRN (Rec: 07/06/20 09:19 LRN [id number]) Shoulder Goniometric Range of Motion Shoulder R Active Sitting Testing Position Sitting Flexion 147 Extension 65 Abduction 121 Comments Painfree AROM Right Active Testing Position Supine PT-OP-L Special Tests Start: 05/21/20 14:19 Freq: Status: Active Protocol: Document 05/21/20 09:00 DLM (Rec: 05/21/20 15:12 DLM [id number]) Special Tests Shoulder Special Tests Elevation Impingement Test Results positive on right Empty Can Test Results positive on right Drop Arm Rotator Cuff Test Results negative Apprehension Test Test Results negative on right Elbow Special Tests Raza Biceps Test Results negative PT-OP-M Strength Start: 05/21/20 14:19 Freq: Status: Active Protocol: Document 06/26/20 12:48 LRN (Rec: 06/26/20 13:35 LRN [id number]) Shoulder Strength Shoulder Manual Muscle Testing Right Abduction (C5) 4+ Good+ Horizontal Abduction 4 Good Horizontal Adduction 4 Good Comments Strength is 5/5 except as noted above with limitation due to pain. PT-OP-Q Treatments Start: 05/21/20 14:19 Freq: Status: Active Protocol: Document 07/13/20 08:15 LRN (Rec: 07/13/20 09:05 LRN [id number]) Cardio Equipment Upper Body Ergometer (UBE) Duration (Minutes) 8 RPM 70 Seat Position 10 Height 2.5 Other Blocks under feet Therapeutic Exercises Supine Exercises Scapular retract/depression Supine Exercise Name Scapular drop training Reps/Minutes 4' Chest Press Plus Supine Exercise Name Chest Press Plus Side bilateral Resistance 0# Reps/Minutes 4' Comments reviewing and teaching proper ex Sitting Exercises Pulleys Sitting Exercise Name MWM for AB with ceci to asssit Side right Equipment Used ward secretary to hold humeral head in inferior glide. Reps/Minutes 10' Comments Manual assist for posterior glide of humeral head with AB. Standing Exercises Scapular depression/rotation Standing Exercise Name Scapular oblique drops Side bilateral Reps/Minutes 4' Comments Phys cuing needed for sitting up properly Manual Therapy Treatment Taping K-tape R shoulder Body Location R Infraspinatus & Deltoid ( anter/manager plan) Treatment Focus Facilitation Type of Tape Kinesio Tape Skin Inspection Very healthy Comments 2- 1/2 width I-strips anterior deltoid for support. 1-I-strip manager plan Deltoid for factilitatioin 1-Y Strip Infraspinatus: facilitation. Manual Techniques MWM Type MWM R shoulder for post glide humeral head with strap for infer glide Body Location R shoulder Body Position Sitting Reps/Duration 6' Self-Care/Home Management Treatment Activities Self-Care/Home Management Activities I/S pt to remove K-tape on day 5 of wear or sooner if discomfort. Reinforced that pt needs assist to remove K- tape instead of her removing self because of possible skin irritation. PT-OP-R Modalities Start: 05/21/20 14:19 Freq: Status: Active Protocol: Document 07/06/20 08:17 LRN (Rec: 07/06/20 09:19 LRN [id number]) Hot Pack/Cold Pack Treatment Cold Pack Location right shoulder Patient Position Supine Treatment Duration (minutes) 10 Patient Tolerance Good PT-OP-T Assessment and Plan Start: 05/21/20 14:19 Freq: Status: Active Protocol: Document 07/13/20 08:15 LRN (Rec: 07/13/20 09:05 LRN [id number]) Physical Therapy Assessment Goals Strength Impairment Right shoulder weakness with pain Short Term Goal (STG) Increase right shoulder strength to 4+/5 (06/26/20: Flex, Ext, ER, IR is 5/5; AB is 4+/5, horiz AB/AD is 4/5). STG Duration 07/23/20 (06/26/20: Improved, but pain with AB, horiz AB/AD ) Case Maker Goal (LTG) Return to regular aerobic and weight lifting exercise routine at home. (06/26/20: Pt has returned to Pilates). LTG Duration 08/25/20 (06/26/20: NOT MET) ROM Impairment Right shoulder limited with pain Short Term Goal (STG) Increase shoulder flexion to 170 degrees and abduction to 150 degrees. (07/13/20: R shoulder active flex in supine is 150 deg's, AB is 95 deg's, sitting: active flex is 147-150 degs. AB is 150) STG Duration 07/23/20 (06/26/20: Improved flex, no change AB) Case Maker Goal (LTG) Increase right shoulder AROM to WNL LTG Duration 08/25/20 Pain Impairment 2/10 pain, limited ROM and strength Short Term Goal (STG) She will be able to reach up over head without increased pain STG Duration 07/23/20 (06/26/20: NOT MET) Case Maker Goal (LTG) She will be able to reach behind her back without increased pain LTG Duration 08/25/20 (06/26/20: NOT MET) Progress Towards Goals Progress Comments Supine R shoulder AROM: flex (no change) 150 deg's, AB improved from 80 to 95 deg's painfree range (with K-tape). Assessment Summary Assessment Area of skin abrasion in R upper lateral scapular region that pt states was not from tape, but from scratching. Pt shows improved R shoulder AB in supine, but no change with flexion, except improved painfree movement after K- taping and exercises. Physical Therapy Plan Frequency and Duration Frequency of Treatment 2x/Week Duration of Treatment 4 weeks Plan of Care Start Date 06/26/20 Plan of Care End Date 08/25/20 Next Visit Focus/Plan Next Note Type Treatment Note Next Visit Plan Incr UBE time. Review shoulder AB AROM with scapular retraining and issue if needed, handout for shoulder AB. Check L shoulder (normal) AROM. Stretch capsule inferior. Check shoulder IR mobility and review self stretch (towel). Save some time for cryotherapy at end of treatment, avoiding charge. Slowly progress rotator cuff strengthening for a R RC strain. Check for SHR and stabilization as needed. K- tape if skin healthy and is improving R shoulder AROM.
--- NOTE | 2020-07-20 10:27 | PT.OTN ---
Current Diagnoses Pain in unspecified shoulder (07/20/20) Muscle weakness (generalized) (07/20/20) Impingement syndrome of right shoulder (07/20/20) Physical Therapy Treatment Note PT-OP-A Visit Information Start: 05/21/20 14:19 Freq: Status: Active Protocol: Document 07/20/20 08:16 LRN (Rec: 07/20/20 09:06 LRN [id number]) Out-Patient Physical Therapy Visit Information Visit Information Visit Type Treatment Note Visit Start Time 08:16 Visit Stop Time 08:58 Total Visit Minutes 52 Visit Number 9 Evaluation Information Evaluation Date 05/21/20 Precautions Precautions BiPolar Disorder Narcolepsy PT-OP-B Current Condition Start: 05/21/20 14:19 Freq: Status: Active Protocol: Document 05/21/20 09:00 DLM (Rec: 05/21/20 15:12 DLM [id number]) Current Condition History of Current Condition Onset Date 9 months hx Current Complaints right shoulder pain History of Current Condition She developed right shoulder pain 9 months ago. She reports at that time she was sleeping on her side with her hands between her knees and she thinks she irritated her shoulder. The pain has continued since that time and it limits the functional use or her right shoulder. Prior Treatments and Tests none Future Testing and Treatments Planned none planned Treatment Goals Patient/Caregiver Goals resolve the pain in right shoulder for normal use Prior Functional Status Baseline Function- ADL's Independent Baseline Function- Mobility Independent Baseline Function- Gait Independent without a device Baseline Function- Work/School she is unemployed Baseline Function- Recreation/Hobbies works out regularly; Aerobics, Lifting weights, Pilates, Walking Baseline Function- Other Right hand dominant Current Functional Impairments (Reported) Functional Limitations- ADL's pain reaching her back with right UE, pain reaching up, pain cleaning shower Functional Limitations- Mobility/Gait no changes Functional Limitations- Work/School she wants to get a job and is worried that her right shoulder pain will limit her ability to work, 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 PT-OP-F Manual Assessment Start: 05/21/20 14:19 Freq: Status: Active Protocol: Document 05/21/20 09:00 DLM (Rec: 05/21/20 15:12 DLM [id number]) Manual Assessments Soft Tissue Assessment Soft Tissue Mobility Assessment soft tissue tightness anterior shoulder and biceps with tenderness Joint Mobility Assessment Joint Mobility Assessment mild to moderate decrease in post and inferior glides right shoulder compared to left PT-OP-J Posture/Palpation/Skin Start: 05/21/20 14:19 Freq: Status: Active Protocol: Document 05/21/20 09:00 DLM (Rec: 05/21/20 15:12 DLM [id number]) Posture Evaluation Comments Posture Comments flexed posture with rounded shoulders and forward head Palpation Assessment Location Right shoulder Palpation Location right shoulder joint area Palpation Findings Tenderness Palpation Details anterior shoulder joint tender , biceps tendon tender, No AC joint tenderness, mild to moderate tightness in her Upper trap, mild tightness right pect major, no scapular area tenderness PT-OP-K Range of Motion Start: 05/21/20 14:19 Freq: Status: Active Protocol: Document 07/20/20 08:16 LRN (Rec: 07/20/20 09:06 LRN [id number]) Shoulder Goniometric Range of Motion Shoulder Left active sitting Testing Position Sitting Flexion 155 Abduction 165 Comments AB prior to MWM was 120 deg's (AB ROM is in scapular plane). Positional training needed during ex. R Active Sitting Testing Position Sitting Flexion 155 Abduction 165 Comments AB ROM is in scapular plane. PT-OP-L Special Tests Start: 05/21/20 14:19 Freq: Status: Active Protocol: Document 05/21/20 09:00 DLM (Rec: 05/21/20 15:12 DLM [id number]) Special Tests Shoulder Special Tests Elevation Impingement Test Results positive on right Empty Can Test Results positive on right Drop Arm Rotator Cuff Test Results negative Apprehension Test Test Results negative on right Elbow Special Tests Raza Biceps Test Results negative PT-OP-M Strength Start: 05/21/20 14:19 Freq: Status: Active Protocol: Document 06/26/20 12:48 LRN (Rec: 06/26/20 13:35 LRN [id number]) Shoulder Strength Shoulder Manual Muscle Testing Right Abduction (C5) 4+ Good+ Horizontal Abduction 4 Good Horizontal Adduction 4 Good Comments Strength is 5/5 except as noted above with limitation due to pain. PT-OP-Q Treatments Start: 05/21/20 14:19 Freq: Status: Active Protocol: Document 07/20/20 08:16 LRN (Rec: 07/20/20 09:06 LRN [id number]) Cardio Equipment Upper Body Ergometer (UBE) Duration (Minutes) 10 RPM 70 Seat Position 10 Height 2.5 Other Blocks under feet Therapeutic Exercises Sitting Exercises Pulleys Sitting Exercise Name MWM for AB with ceci to asssit Side right Equipment Used glass belt sander to hold humeral head in inferior glide. Reps/Minutes 10' Comments Manual assist for posterior glide of humeral head with AB. Standing Exercises Shoulder IR Standing Exercise Name Towel stretch Side right Reps/Minutes 5' Comments Extra time needed for training of max stretch and positioning. Manual Therapy Treatment Taping K-tape R shoulder Body Location R Lat, Infraspinatus & Deltoid (anter/project planner) Treatment Focus Facilitation Type of Tape Kinesio Tape Skin Inspection Very healthy Comments 1- I-strips lat dorsi facilitation 1-Y Strip Infraspinatus: facilitation. Manual Techniques MWM Type MWM R shoulder for post/infer glide humeral head with strap Body Location R shoulder Body Position Sitting Reps/Duration 12' Self-Care/Home Management Treatment Education Patient Education Home Exercise Program Activities Self-Care/Home Management Activities Issued & reviewed HEP: R shoulder IR stretch with towel . PT-OP-R Modalities Start: 05/21/20 14:19 Freq: Status: Active Protocol: Document 07/20/20 08:16 LRN (Rec: 07/20/20 09:06 LRN [id number]) Hot Pack/Cold Pack Treatment Cold Pack Location right shoulder Patient Position Supine Treatment Duration (minutes) 10 Patient Tolerance Good PT-OP-T Assessment and Plan Start: 05/21/20 14:19 Freq: Status: Active Protocol: Document 07/20/20 08:16 LRN (Rec: 07/20/20 09:06 LRN [id number]) Physical Therapy Assessment Goals Strength Impairment Right shoulder weakness with pain Short Term Goal (STG) Increase right shoulder strength to 4+/5 (06/26/20: Flex, Ext, ER, IR is 5/5; AB is 4+/5, horiz AB/AD is 4/5). STG Duration 07/23/20 (06/26/20: Improved, but pain with AB, horiz AB/AD ) Freight Team Associate Goal (LTG) Return to regular aerobic and weight lifting exercise routine at home. (06/26/20: Pt has returned to Pilates). LTG Duration 08/25/20 (06/26/20: NOT MET) ROM Impairment Right shoulder limited with pain Short Term Goal (STG) Increase shoulder flexion to 170 degrees and abduction to 150 degrees. (07/20/20: R shoulder active flex in sitting: active flex is 155 degs. AB is 165 after treatment) STG Duration 07/23/20 (07/20/20: Improved sitting AROM after treatment) Long-Term Goal (LTG) Increase right shoulder AROM to WNL LTG Duration 08/25/20 (07/20/20: R shoulder flex is WNL today) Pain Impairment 2/10 pain, limited ROM and strength Short Term Goal (STG) She will be able to reach up over head without increased pain STG Duration 07/23/20 (07/20/20: Progressing, today no pain) Freight Team Associate Goal (LTG) She will be able to reach behind her back without increased pain LTG Duration 08/25/20 (06/26/20: NOT MET) Progress Towards Goals Progress Comments Sitting R shoulder AROM: flex improved from 150 to 155 deg' s, AB improved from 95 to 120 deg's painfree range (with K- tape), and after MWM/Ktape to 165 deg's. Assessment Summary Assessment Pt finding K-tape helpful in reducing pain with reaching overhead. She has a painful arc at 120 deg's AB. Pt able to improve painfree R shoulder AROM after MWM to 165 deg's. Poor head and scapular posture is limiting her mobility due to pain. Pt has consistent tendency to droop her head. Physical Therapy Plan Frequency and Duration Frequency of Treatment 2x/Week Duration of Treatment 4 weeks Plan of Care Start Date 06/26/20 Plan of Care End Date 08/25/20 Next Visit Focus/Plan Next Note Type Progress Note Next Visit Plan Reassess for PN prior to ex. Check luca shoulder AROM in supine. Review R shoulder IR towel stretch. Slowly incr UBE height/resistance and progress Scap stab strengthening. Review shoulder AB AROM with scapular retraining and issue if needed, handout for shoulder AB. Stretch capsule inferior . Save some time for cryotherapy at end of treatment, avoiding charge. Slowly progress rotator cuff strengthening for a R RC strain. K-tape if skin healthy.
--- NOTE | 2020-07-27 17:36 | PT.OTN ---
Current Diagnoses Pain in unspecified shoulder (07/27/20) Muscle weakness (generalized) (07/27/20) Impingement syndrome of right shoulder (07/27/20) Physical Therapy Treatment Note PT-OP-A Visit Information Start: 05/21/20 14:19 Freq: Status: Active Protocol: Document 07/27/20 08:16 LRN (Rec: 07/27/20 09:07 LRN [id number]) Out-Patient Physical Therapy Visit Information Visit Information Visit Type Treatment Note Visit Note 5 after last PN Visit Start Time 08:16 Visit Stop Time 09:06 Total Visit Minutes 50 Visit Number 10 Evaluation Information Evaluation Date 05/21/20 Precautions Precautions BiPolar Disorder Narcolepsy PT-OP-B Current Condition Start: 05/21/20 14:19 Freq: Status: Active Protocol: Document 05/21/20 09:00 DLM (Rec: 05/21/20 15:12 DLM [id number]) Current Condition History of Current Condition Onset Date 9 months hx Current Complaints right shoulder pain History of Current Condition She developed right shoulder pain 9 months ago. She reports at that time she was sleeping on her side with her hands between her knees and she thinks she irritated her shoulder. The pain has continued since that time and it limits the functional use or her right shoulder. Prior Treatments and Tests none Future Testing and Treatments Planned none planned Treatment Goals Patient/Caregiver Goals resolve the pain in right shoulder for normal use Prior Functional Status Baseline Function- ADL's Independent Baseline Function- Mobility Independent Baseline Function- Gait Independent without a device Baseline Function- Work/School she is unemployed Baseline Function- Recreation/Hobbies works out regularly; Aerobics, Lifting weights, Pilates, Walking Baseline Function- Other Right hand dominant Current Functional Impairments (Reported) Functional Limitations- ADL's pain reaching her back with right UE, pain reaching up, pain cleaning shower Functional Limitations- Mobility/Gait no changes Functional Limitations- Work/School she wants to get a job and is worried that her right shoulder pain will limit her ability to work, interested in applying for a pharmacy resource tech or some type of medical lab technician position Functional Limitations- Recreation/ right shoulder pain limits her Hobbies ability to do aerobics routine and lifting weights Functional Limitations- Other in her spare time she reads and spends time on the computer/phone Personal Factors Other Personal Factors That May Effect Bipolar disorder and Therapy/Recovery Narcolepsy PT-OP-C Subjective Start: 05/21/20 14:19 Freq: Status: Active Protocol: Document 07/27/20 08:16 LRN (Rec: 07/27/20 09:07 LRN [id number]) OP-PT Subjective Patient Comments Patient Comments Some of the exercises aren't as painful anymore. Pt removed K-tape 3 days ago and found it helpful to have on. Patient Reported Progress Improving PT-OP-F Manual Assessment Start: 05/21/20 14:19 Freq: Status: Active Protocol: Document 05/21/20 09:00 DLM (Rec: 05/21/20 15:12 DLM [id number]) Manual Assessments Soft Tissue Assessment Soft Tissue Mobility Assessment soft tissue tightness anterior shoulder and biceps with tenderness Joint Mobility Assessment Joint Mobility Assessment mild to moderate decrease in post and inferior glides right shoulder compared to left PT-OP-J Posture/Palpation/Skin Start: 05/21/20 14:19 Freq: Status: Active Protocol: Document 05/21/20 09:00 DLM (Rec: 05/21/20 15:12 DLM [id number]) Posture Evaluation Comments Posture Comments flexed posture with rounded shoulders and forward head Palpation Assessment Location Right shoulder Palpation Location right shoulder joint area Palpation Findings Tenderness Palpation Details anterior shoulder joint tender , biceps tendon tender, No AC joint tenderness, mild to moderate tightness in her Upper trap, mild tightness right pect major, no scapular area tenderness PT-OP-K Range of Motion Start: 05/21/20 14:19 Freq: Status: Active Protocol: Document 07/27/20 08:16 LRN (Rec: 07/27/20 09:07 LRN [id number]) Shoulder Goniometric Range of Motion Shoulder R Active Sitting Testing Position Sitting Abduction 155 Comments Prior to exercise: R shoulder: Flex: 137 deg's ABD Painful arc (pain inferior brachium) at 80 deg's , max AROM: 155 deg's. Pt able to be painfree with AB after K-taping. Right Active Testing Position Supine Flexion 155 Comments AB is 180 deg's in scapular plane. PT-OP-L Special Tests Start: 05/21/20 14:19 Freq: Status: Active Protocol: Document 05/21/20 09:00 DLM (Rec: 05/21/20 15:12 [facility] [id number]) Special Tests Shoulder Special Tests Elevation Impingement Test Results positive on right Empty Can Test Results positive on right Drop Arm Rotator Cuff Test Results negative Apprehension Test Test Results negative on right Elbow Special Tests Raza Biceps Test Results negative PT-OP-M Strength Start: 05/21/20 14:19 Freq: Status: Active Protocol: Document 06/26/20 12:48 LRN (Rec: 06/26/20 13:35 LRN [id number]) Shoulder Strength Shoulder Manual Muscle Testing Right Abduction (C5) 4+ Good+ Horizontal Abduction 4 Good Horizontal Adduction 4 Good Comments Strength is 5/5 except as noted above with limitation due to pain. PT-OP-Q Treatments Start: 05/21/20 14:19 Freq: Status: Active Protocol: Document 07/27/20 08:16 LRN (Rec: 07/27/20 09:07 LRN [id number]) Cardio Equipment Upper Body Ergometer (UBE) Duration (Minutes) 10 RPM 70 Seat Position 10 Height 3 Other 60 rpm for 7', 70 rpm for 3' Blocks under feet Therapeutic Exercises Sitting Exercises Shoulder press up Sitting Exercise Name Shoulder press ups w/strap to limit shoulder elevation Resistance 0#, 1# Reps/Minutes 10x, 10x 2 Pulleys Sitting Exercise Name Manual MWM for AB with ceci to asssit Side right Equipment Used department assistant to hold humeral head in inferior glide. Reps/Minutes 20' Comments Manual assist for posterior glide of humeral head with AB. Standing Exercises Shoulder IR Standing Exercise Name Towel stretch Side right Reps/Minutes 2' Comments Extra time needed for training of max stretch and positioning. Manual Therapy Treatment Taping K-tape R shoulder Body Location R Lat, Infraspinatus & Deltoid (anter/bead wire insulator) Treatment Focus Facilitation Type of Tape Kinesio Tape Skin Inspection Very healthy Comments 1- I-strips lat dorsi facilitation 1-Y Strip Infraspinatus: facilitation. PT-OP-R Modalities Start: 05/21/20 14:19 Freq: Status: Active Protocol: Document 07/20/20 08:16 LRN (Rec: 07/20/20 09:06 LRN [id number]) Hot Pack/Cold Pack Treatment Cold Pack Location right shoulder Patient Position Supine Treatment Duration (minutes) 10 Patient Tolerance Good PT-OP-T Assessment and Plan Start: 05/21/20 14:19 Freq: Status: Active Protocol: Document 07/27/20 08:16 LRN (Rec: 07/27/20 09:07 LRN [id number]) Physical Therapy Assessment Goals Strength Impairment Right shoulder weakness with pain Short Term Goal (STG) Increase right shoulder strength to 4+/5 (06/26/20: Flex, Ext, ER, IR is 5/5; AB is 4+/5, horiz AB/AD is 4/5). STG Duration 07/23/20 (06/26/20: Improved, but pain with AB, horiz AB/AD ) Sales Floor Associate Goal (LTG) Return to regular aerobic and weight lifting exercise routine at home. (06/26/20: Pt has returned to Pilates). LTG Duration 08/25/20 (06/26/20: NOT MET) ROM Impairment Right shoulder limited with pain Short Term Goal (STG) Increase shoulder flexion to 170 degrees and abduction to 150 degrees. (07/20/20: R shoulder active flex in sitting: active flex is 155 degs. AB is 165 after treatment) STG Duration 07/23/20 (07/20/20: Improved sitting AROM after treatment) Sales Floor Associate Goal (LTG) Increase right shoulder AROM to WNL LTG Duration 08/25/20 (07/20/20: R shoulder flex is WNL today) Pain Impairment 2/10 pain, limited ROM and strength Short Term Goal (STG) She will be able to reach up over head without increased pain STG Duration 07/23/20 (07/20/20: Progressing, today no pain) Sales Floor Associate Goal (LTG) She will be able to reach behind her back without increased pain LTG Duration 08/25/20 (06/26/20: NOT MET) Assessment Summary Assessment Pt demonstrates painful arc of R shoulder with AB ~110-120 deg's, due to poor SHR. She is limited with shoulder AROM but improves with stretch and repeition of manual MWM and K- tape techniques. Poor head positioning due to narcolepsy hinders her progress. Physical Therapy Plan Frequency and Duration Frequency of Treatment 2x/Week Duration of Treatment 4 weeks Plan of Care Start Date 06/26/20 Plan of Care End Date 08/25/20 Next Visit Focus/Plan Next Note Type Treatment Note Next Visit Plan Check luca shoulder AROM in supine. Strengthen R Lat Dorsi and RC. Slowly incr UBE height/resistance and progress Scap stab strengthening. Review shoulder AB AROM with scapular retraining and issue if needed, handout for shoulder AB. Stretch capsule inferior . Save some time for cryotherapy at end of treatment, avoiding charge. Slowly progress rotator cuff strengthening for a R RC strain. K-tape if skin healthy.
--- NOTE | 2020-08-07 16:56 | PT.OTN ---
Current Diagnoses Pain in unspecified shoulder (08/07/20) Muscle weakness (generalized) (08/07/20) Impingement syndrome of right shoulder (08/07/20) Physical Therapy Treatment Note PT-OP-A Visit Information Start: 05/21/20 14:19 Freq: Status: Active Protocol: Document 08/07/20 12:49 LRN (Rec: 08/07/20 13:52 LRN [id number]) Out-Patient Physical Therapy Visit Information Visit Information Visit Type Treatment Note Visit Note 6 after last PN Visit Start Time 12:49 Visit Stop Time 13:37 Total Visit Minutes 58 Visit Number 11 Evaluation Information Evaluation Date 05/21/20 Precautions Precautions BiPolar Disorder Narcolepsy PT-OP-B Current Condition Start: 05/21/20 14:19 Freq: Status: Active Protocol: Document 05/21/20 09:00 DLM (Rec: 05/21/20 15:12 DLM [id number]) Current Condition History of Current Condition Onset Date 9 months hx Current Complaints right shoulder pain History of Current Condition She developed right shoulder pain 9 months ago. She reports at that time she was sleeping on her side with her hands between her knees and she thinks she irritated her shoulder. The pain has continued since that time and it limits the functional use or her right shoulder. Prior Treatments and Tests none Future Testing and Treatments Planned none planned Treatment Goals Patient/Caregiver Goals resolve the pain in right shoulder for normal use Prior Functional Status Baseline Function- ADL's Independent Baseline Function- Mobility Independent Baseline Function- Gait Independent without a device Baseline Function- Work/School she is unemployed Baseline Function- Recreation/Hobbies works out regularly; Aerobics, Lifting weights, Pilates, Walking Baseline Function- Other Right hand dominant Current Functional Impairments (Reported) Functional Limitations- ADL's pain reaching her back with right UE, pain reaching up, pain cleaning shower Functional Limitations- Mobility/Gait no changes Functional Limitations- Work/School she wants to get a job and is worried that her right shoulder pain will limit her ability to work, interested in applying for a pharmacy technology instructor or some type of director medical affairs position Functional Limitations- Recreation/ right shoulder pain limits her Hobbies ability to do aerobics routine and lifting weights Functional Limitations- Other in her spare time she reads and spends time on the computer/phone Personal Factors Other Personal Factors That May Effect Bipolar disorder and Therapy/Recovery Narcolepsy PT-OP-C Subjective Start: 05/21/20 14:19 Freq: Status: Active Protocol: Document 08/07/20 12:49 LRN (Rec: 08/07/20 13:52 LRN [id number]) OP-PT Subjective Patient Comments Patient Comments Still has R painful arc (to start), very minimal painful arc at end of treatment. PT-OP-F Manual Assessment Start: 05/21/20 14:19 Freq: Status: Active Protocol: Document 05/21/20 09:00 DLM (Rec: 05/21/20 15:12 DLM [id number]) Manual Assessments Soft Tissue Assessment Soft Tissue Mobility Assessment soft tissue tightness anterior shoulder and biceps with tenderness Joint Mobility Assessment Joint Mobility Assessment mild to moderate decrease in post and inferior glides right shoulder compared to left PT-OP-J Posture/Palpation/Skin Start: 05/21/20 14:19 Freq: Status: Active Protocol: Document 05/21/20 09:00 DLM (Rec: 05/21/20 15:12 DLM [id number]) Posture Evaluation Comments Posture Comments flexed posture with rounded shoulders and forward head Palpation Assessment Location Right shoulder Palpation Location right shoulder joint area Palpation Findings Tenderness Palpation Details anterior shoulder joint tender , biceps tendon tender, No AC joint tenderness, mild to moderate tightness in her Upper trap, mild tightness right pect major, no scapular area tenderness PT-OP-K Range of Motion Start: 05/21/20 14:19 Freq: Status: Active Protocol: Document 08/07/20 12:49 LRN (Rec: 08/07/20 13:52 LRN [id number]) Shoulder Goniometric Range of Motion Shoulder Left Active Shoulder ROM WFL Yes Testing Position Supine Flexion 155 Left active sitting Shoulder ROM WFL Yes Testing Position Sitting Flexion 158 Abduction 180 Comments AB is in scapular plane R Active Sitting Testing Position Sitting Flexion 155 Abduction 180 Comments AB is in scapular plane Right Active Shoulder ROM WFL No Testing Position Supine Flexion 155 Comments Tight at end-range. PT-OP-L Special Tests Start: 05/21/20 14:19 Freq: Status: Active Protocol: Document 05/21/20 09:00 DLM (Rec: 05/21/20 15:12 DLM [id number]) Special Tests Shoulder Special Tests Elevation Impingement Test Results positive on right Empty Can Test Results positive on right Drop Arm Rotator Cuff Test Results negative Apprehension Test Test Results negative on right Elbow Special Tests Raza Biceps Test Results negative PT-OP-M Strength Start: 05/21/20 14:19 Freq: Status: Active Protocol: Document 06/26/20 12:48 LRN (Rec: 06/26/20 13:35 LRN [id number]) Shoulder Strength Shoulder Manual Muscle Testing Right Abduction (C5) 4+ Good+ Horizontal Abduction 4 Good Horizontal Adduction 4 Good Comments Strength is 5/5 except as noted above with limitation due to pain. PT-OP-Q Treatments Start: 05/21/20 14:19 Freq: Status: Active Protocol: Document 08/07/20 12:49 LRN (Rec: 08/07/20 13:52 LRN [id number]) Cardio Equipment Upper Body Ergometer (UBE) Duration (Minutes) 10 RPM 70 Seat Position 10 Height 3 Other Blocks under feet Therapeutic Exercises Supine Exercises Lat pull down Supine Exercise Name Lat pull down Side bilateral Equipment Used 2#, Lev 2 TB Reps/Minutes 15x 2 AAROM Shoulder flexion Supine Exercise Name AAROM shoulder flex w/cane Side right Reps/Minutes 3' Sitting Exercises Pulleys Sitting Exercise Name Manual MWM for AB with ceci to asssit Side right Equipment Used belt tender to hold humeral head in inferior glide. Reps/Minutes 20' Comments Manual assist for posterior glide of humeral head with AB. Manual Therapy Treatment Taping K-tape R shoulder Body Location R Lat, Infraspinatus Treatment Focus Facilitation Type of Tape Kinesio Tape Skin Inspection Very healthy Comments 1- I-strips lat dorsi facilitation 1-Y Strip Infraspinatus: facilitation. PT-OP-R Modalities Start: 05/21/20 14:19 Freq: Status: Active Protocol: Document 08/07/20 12:49 LRN (Rec: 08/07/20 13:52 LRN [id number]) Hot Pack/Cold Pack Treatment Cold Pack Location right shoulder Patient Position Supine Treatment Duration (minutes) 10 Patient Tolerance Good PT-OP-T Assessment and Plan Start: 05/21/20 14:19 Freq: Status: Active Protocol: Document 08/07/20 12:49 LRN (Rec: 08/07/20 13:52 LRN [id number]) Physical Therapy Assessment Goals Strength Impairment Right shoulder weakness with pain Short Term Goal (STG) Increase right shoulder strength to 4+/5 (06/26/20: Flex, Ext, ER, IR is 5/5; AB is 4+/5, horiz AB/AD is 4/5). STG Duration 07/23/20 (06/26/20: Improved, but pain with AB, horiz AB/AD ) Leather Belt Maker Goal (LTG) Return to regular aerobic and weight lifting exercise routine at home. (06/26/20: Pt has returned to Pilates). LTG Duration 08/25/20 (06/26/20: NOT MET) ROM Impairment Right shoulder limited with pain Short Term Goal (STG) Increase shoulder flexion to 170 degrees and abduction to 150 degrees. (07/20/20: R shoulder active flex in sitting: active flex is 155 degs. AB is 165 after treatment) STG Duration 07/23/20 (07/20/20: Improved sitting AROM after treatment) Leather Belt Maker Goal (LTG) Increase right shoulder AROM to WNL LTG Duration 08/25/20 (07/20/20: R shoulder flex is WNL today) Pain Impairment 2/10 pain, limited ROM and strength Short Term Goal (STG) She will be able to reach up over head without increased pain STG Duration 07/23/20 (07/20/20: Progressing, today no pain) Leather Belt Maker Goal (LTG) She will be able to reach behind her back without increased pain LTG Duration 08/25/20 (06/26/20: NOT MET) Assessment Summary Assessment Due to Narcolepsy, pt needed cuing for proper head posture and to stay awake on UBE. After stretching MWM on ceci and K-taping R shoulder pt was able to perform R shoulder flex & AB without painful arc . Supine shoulder flex is 155 deg's bilaterally, in sitting R shoulder is 155 deg' s (L is 158 deg's). Pt able to do sup ex without painful arc. Physical Therapy Plan Frequency and Duration Frequency of Treatment 2x/Week Duration of Treatment 4 weeks Plan of Care Start Date 06/26/20 Plan of Care End Date 08/25/20 Next Visit Focus/Plan Next Note Type Treatment Note Next Visit Plan Strengthen R Lat Dorsi and RC. Slowly incr UBE height/ resistance and progress Scap stab strengthening. Review shoulder AB AROM with scapular retraining and issue if needed, handout for shoulder AB. Stretch capsule inferior . Save some time for cryotherapy at end of treatment, avoiding charge. Slowly progress rotator cuff strengthening for a R RC strain. K-tape if skin healthy.
--- NOTE | 2020-08-14 16:38 | PT.OTN ---
Current Diagnoses Pain in unspecified shoulder (08/14/20) Muscle weakness (generalized) (08/14/20) Impingement syndrome of right shoulder (08/14/20) Physical Therapy Treatment Note PT-OP-A Visit Information Start: 05/21/20 14:19 Freq: Status: Active Protocol: Document 08/14/20 12:52 LRN (Rec: 08/14/20 13:46 LRN [id number]) Out-Patient Physical Therapy Visit Information Visit Information Visit Type Treatment Note Visit Note 7 after last PN Visit Start Time 12:52 Visit Stop Time 13:44 Total Visit Minutes 52 Visit Number 12 Evaluation Information Evaluation Date 05/21/20 Precautions Precautions BiPolar Disorder Narcolepsy PT-OP-B Current Condition Start: 05/21/20 14:19 Freq: Status: Active Protocol: Document 05/21/20 09:00 DLM (Rec: 05/21/20 15:12 DLM [id number]) Current Condition History of Current Condition Onset Date 9 months hx Current Complaints right shoulder pain History of Current Condition She developed right shoulder pain 9 months ago. She reports at that time she was sleeping on her side with her hands between her knees and she thinks she irritated her shoulder. The pain has continued since that time and it limits the functional use or her right shoulder. Prior Treatments and Tests none Future Testing and Treatments Planned none planned Treatment Goals Patient/Caregiver Goals resolve the pain in right shoulder for normal use Prior Functional Status Baseline Function- ADL's Independent Baseline Function- Mobility Independent Baseline Function- Gait Independent without a device Baseline Function- Work/School she is unemployed Baseline Function- Recreation/Hobbies works out regularly; Aerobics, Lifting weights, Pilates, Walking Baseline Function- Other Right hand dominant Current Functional Impairments (Reported) Functional Limitations- ADL's pain reaching her back with right UE, pain reaching up, pain cleaning shower Functional Limitations- Mobility/Gait no changes Functional Limitations- Work/School she wants to get a job and is worried that her right shoulder pain will limit her ability to work, interested in applying for a pharmacy ancillary or some type of medical support specialist position Functional Limitations- Recreation/ right shoulder pain limits her Hobbies ability to do aerobics routine and lifting weights Functional Limitations- Other in her spare time she reads and spends time on the computer/phone Personal Factors Other Personal Factors That May Effect Bipolar disorder and Therapy/Recovery Narcolepsy PT-OP-C Subjective Start: 05/21/20 14:19 Freq: Status: Active Protocol: Document 08/14/20 12:52 LRN (Rec: 08/14/20 13:46 LRN [id number]) OP-PT Subjective Patient Comments Patient Comments Last night doing exercises was free from pain. Can sleep without pain. PT-OP-F Manual Assessment Start: 05/21/20 14:19 Freq: Status: Active Protocol: Document 05/21/20 09:00 DLM (Rec: 05/21/20 15:12 DLM [id number]) Manual Assessments Soft Tissue Assessment Soft Tissue Mobility Assessment soft tissue tightness anterior shoulder and biceps with tenderness Joint Mobility Assessment Joint Mobility Assessment mild to moderate decrease in post and inferior glides right shoulder compared to left PT-OP-J Posture/Palpation/Skin Start: 05/21/20 14:19 Freq: Status: Active Protocol: Document 05/21/20 09:00 DLM (Rec: 05/21/20 15:12 DLM [id number]) Posture Evaluation Comments Posture Comments flexed posture with rounded shoulders and forward head Palpation Assessment Location Right shoulder Palpation Location right shoulder joint area Palpation Findings Tenderness Palpation Details anterior shoulder joint tender , biceps tendon tender, No AC joint tenderness, mild to moderate tightness in her Upper trap, mild tightness right pect major, no scapular area tenderness PT-OP-K Range of Motion Start: 05/21/20 14:19 Freq: Status: Active Protocol: Document 08/07/20 12:49 LRN (Rec: 08/07/20 13:52 LRN [id number]) Shoulder Goniometric Range of Motion Shoulder Left Active Shoulder ROM WFL Yes Testing Position Supine Flexion 155 Left active sitting Shoulder ROM WFL Yes Testing Position Sitting Flexion 158 Abduction 180 Comments AB is in scapular plane R Active Sitting Testing Position Sitting Flexion 155 Abduction 180 Comments AB is in scapular plane Right Active Shoulder ROM WFL No Testing Position Supine Flexion 155 Comments Tight at end-range. PT-OP-L Special Tests Start: 05/21/20 14:19 Freq: Status: Active Protocol: Document 05/21/20 09:00 DLM (Rec: 05/21/20 15:12 DLM [id number]) Special Tests Shoulder Special Tests Elevation Impingement Test Results positive on right Empty Can Test Results positive on right Drop Arm Rotator Cuff Test Results negative Apprehension Test Test Results negative on right Elbow Special Tests Raza Biceps Test Results negative PT-OP-M Strength Start: 05/21/20 14:19 Freq: Status: Active Protocol: Document 06/26/20 12:48 LRN (Rec: 06/26/20 13:35 LRN [id number]) Shoulder Strength Shoulder Manual Muscle Testing Right Abduction (C5) 4+ Good+ Horizontal Abduction 4 Good Horizontal Adduction 4 Good Comments Strength is 5/5 except as noted above with limitation due to pain. PT-OP-Q Treatments Start: 05/21/20 14:19 Freq: Status: Active Protocol: Document 08/14/20 12:52 LRN (Rec: 08/14/20 13:46 LRN [id number]) Cardio Equipment Upper Body Ergometer (UBE) Duration (Minutes) 10 RPM 70 Seat Position 10 Height 3 Other Blocks under feet. 5' 70 rpm, 2.5' 65 rpm fwd/bkwd Therapeutic Exercises Sitting Exercises Ceci:shldr ER/90 deg AB Sitting Exercise Name Shldr assisted ER w/arm in 90 deg's AB supported on red TBall Reps/Minutes 1' x 3 Comments training for scapular retract/ depression Pulleys Sitting Exercise Name Manual MWM for AB with ceci to asssit Side right Reps/Minutes 6' Standing Exercises Scapular depression/rotation Standing Exercise Name Scapular depression/rotation Side bilateral Equipment Used Lev 2, Lev 3 Reps/Minutes 15x each Shoulder IR Standing Exercise Name Towel stretch Side right Reps/Minutes 2' Comments Extra time needed for training of max stretch and positioning. Shoulder Ext Standing Exercise Name Shoulder ER Side bilateral Reps/Minutes 15x 2 Comments phys cuing needed for rhomboids and infraspinatus Shoulder ER Standing Exercise Name shoulder External rotation Side bilateral Resistance L1 exercise band Reps/Minutes 3 x 10 reps Comments v. & phy.cues for erect posture Self-Care/Home Management Treatment Education Patient Education Home Exercise Program Activities Self-Care/Home Management Activities Issued & reviewed HEP: * Standing resisted shoulder ER (repeat), *Sitting shldr ER ( arm ABD 90 deg's) PT-OP-R Modalities Start: 05/21/20 14:19 Freq: Status: Active Protocol: Document 08/14/20 12:52 LRN (Rec: 08/14/20 13:46 LRN [id number]) Hot Pack/Cold Pack Treatment Cold Pack Location right shoulder Patient Position Supine Treatment Duration (minutes) 7 Patient Tolerance Good PT-OP-T Assessment and Plan Start: 05/21/20 14:19 Freq: Status: Active Protocol: Document 08/14/20 12:52 LRN (Rec: 08/14/20 13:46 LRN [id number]) Physical Therapy Assessment Goals Strength Impairment Right shoulder weakness with pain Short Term Goal (STG) Increase right shoulder strength to 4+/5 (06/26/20: Flex, Ext, ER, IR is 5/5; AB is 4+/5, horiz AB/AD is 4/5). STG Duration 07/23/20 (06/26/20: Improved, but pain with AB, horiz AB/AD ) Restorative Aide Goal (LTG) Return to regular aerobic and weight lifting exercise routine at home. (06/26/20: Pt has returned to [facility]). LTG Duration 08/25/20 (06/26/20: NOT MET) ROM Impairment Right shoulder limited with pain Short Term Goal (STG) Increase shoulder flexion to 170 degrees and abduction to 150 degrees. (07/20/20: R shoulder active flex in sitting: active flex is 155 degs. AB is 165 after treatment) STG Duration 07/23/20 (07/20/20: Improved sitting AROM after treatment) Nursing Home Goal (LTG) Increase right shoulder AROM to WNL LTG Duration 08/25/20 (07/20/20: R shoulder flex is WNL today) Pain Impairment 2/10 pain, limited ROM and strength Short Term Goal (STG) She will be able to reach up over head without increased pain STG Duration 07/23/20 (08/14/20: Today no pain) Restorative Aide Goal (LTG) She will be able to reach behind her back without increased pain LTG Duration 08/25/20 (06/26/20: NOT MET) Progress Towards Goals Progress Comments Pt able to perform R shoulder flex & AB without painful arc. Assessment Summary Assessment Pt demonstrates ability to R shoulder flex and AB without pain. Deferred K-taping due to peeling dry skin on back. Pt able to perform active shoulder flex & AB without pain on conc & ECC contractions; therefore showing good improvement. Physical Therapy Plan Frequency and Duration Frequency of Treatment 2x/Week Duration of Treatment 4 weeks Plan of Care Start Date 06/26/20 Plan of Care End Date 08/25/20 Next Visit Focus/Plan Next Note Type Progress Note Next Visit Plan Reassess for PN, New plan of care if further therapy needed . Stretch capsule inferior. Strengthen R Lat Dorsi and RC . Progress shoulder endurance by slowly incr UBE height/ resistance and progress Scap stab strengthening. Review shoulder AB AROM with scapular retraining and issue if needed, handout for shoulder AB. Save some time for cryotherapy at end of treatment, avoiding charge. Slowly progress rotator cuff strengthening for a R RC strain. K-tape if skin healthy.
--- NOTE | 2020-08-21 13:11 | PT-OP ANOTE ---
Per phone, pt reports she forgot she had an appointment. Notified pt that she will have a copay with next therapy if she is not approved for further therapy by the hospital and that further paperwork is needed. Reminded pt to notify PT if canceling appointments.
--- NOTE | 2020-09-04 17:31 | PT.OTN ---
Current Diagnoses Pain in unspecified shoulder (09/04/20) Muscle weakness (generalized) (09/04/20) Impingement syndrome of right shoulder (09/04/20) Physical Therapy Treatment Note PT-OP-A Visit Information Start: 05/21/20 14:19 Freq: Status: Active Protocol: Document 09/04/20 13:00 LRN (Rec: 09/04/20 13:46 LRN [id number]) Out-Patient Physical Therapy Visit Information Visit Information Visit Type Treatment Note Visit Start Time 13:00 Visit Stop Time 13:40 Total Visit Minutes 40 Visit Number 13 Evaluation Information Evaluation Date 05/21/20 Precautions Precautions BiPolar Disorder Narcolepsy PT-OP-B Current Condition Start: 05/21/20 14:19 Freq: Status: Active Protocol: Document 05/21/20 09:00 DLM (Rec: 05/21/20 15:12 DLM [id number]) Current Condition History of Current Condition Onset Date 9 months hx Current Complaints right shoulder pain History of Current Condition She developed right shoulder pain 9 months ago. She reports at that time she was sleeping on her side with her hands between her knees and she thinks she irritated her shoulder. The pain has continued since that time and it limits the functional use or her right shoulder. Prior Treatments and Tests none Future Testing and Treatments Planned none planned Treatment Goals Patient/Caregiver Goals resolve the pain in right shoulder for normal use Prior Functional Status Baseline Function- ADL's Independent Baseline Function- Mobility Independent Baseline Function- Gait Independent without a device Baseline Function- Work/School she is unemployed Baseline Function- Recreation/Hobbies works out regularly; Aerobics, Lifting weights, Pilates, Walking Baseline Function- Other Right hand dominant Current Functional Impairments (Reported) Functional Limitations- ADL's pain reaching her back with right UE, pain reaching up, pain cleaning shower Functional Limitations- Mobility/Gait no changes Functional Limitations- Work/School she wants to get a job and is worried that her right shoulder pain will limit her ability to work, interested in applying for a injection maintenance technician or some type of medical reviewer position Functional Limitations- Recreation/ right shoulder pain limits her Hobbies ability to do aerobics routine and lifting weights Functional Limitations- Other in her spare time she reads and spends time on the computer/phone Personal Factors Other Personal Factors That May Effect Bipolar disorder and Therapy/Recovery Narcolepsy PT-OP-C Subjective Start: 05/21/20 14:19 Freq: Status: Active Protocol: Document 09/04/20 13:00 LRN (Rec: 09/04/20 13:46 LRN [id number]) OP-PT Subjective Patient Comments Patient Comments Shoulder feels good but the deltoid has a little pain on top when moving shoulder (AB, circles at 90/90 position), not able to do the standing shoulder ER AROM ex didn't have anything to rest arm on. Mary broke. Feels overall she is 85% better. Not a lot better since last visit because she hasn't been able to do the exercises. Patient Questionnaires Quick Dash- Upper Extremity Quick Dash UE Score 18.18 Quick Dash UE Impairment 1 to 19% Impaired (Score 1-19) OP-PT Pain Assessment Location Right Shoulder Pain Location Details anterior and superior areas of right shoulder Intensity 0 Scale Used Numeric (0 - 10) Comments Pain Comments Pt has pain complaints at end- range R shoulder AB. PT-OP-F Manual Assessment Start: 05/21/20 14:19 Freq: Status: Active Protocol: Document 05/21/20 09:00 DLM (Rec: 05/21/20 15:12 DL [id number]) Manual Assessments Soft Tissue Assessment Soft Tissue Mobility Assessment soft tissue tightness anterior shoulder and biceps with tenderness Joint Mobility Assessment Joint Mobility Assessment mild to moderate decrease in post and inferior glides right shoulder compared to left PT-OP-J Posture/Palpation/Skin Start: 05/21/20 14:19 Freq: Status: Active Protocol: Document 05/21/20 09:00 DLM (Rec: 05/21/20 15:12 DL [id number]) Posture Evaluation Comments Posture Comments flexed posture with rounded shoulders and forward head Palpation Assessment Location Right shoulder Palpation Location right shoulder joint area Palpation Findings Tenderness Palpation Details anterior shoulder joint tender , biceps tendon tender, No AC joint tenderness, mild to moderate tightness in her Upper trap, mild tightness right pect major, no scapular area tenderness PT-OP-K Range of Motion Start: 05/21/20 14:19 Freq: Status: Active Protocol: Document 09/04/20 13:00 LRN (Rec: 09/04/20 13:46 LRN [id number]) Shoulder Goniometric Range of Motion Shoulder Left Active Testing Position Supine Flexion 155 Abduction 150 Left active sitting Testing Position Sitting Flexion 155 Abduction 150 Internal Rotation Behind Back (text) L4 Comments AB is in scapular plane R Active Sitting Testing Position Sitting Flexion 150 Abduction 155 Internal Rotation Behind Back (text) L3 Comments AB is in scapular plane Right Active Shoulder ROM WFL No Testing Position Supine Flexion 155 Abduction 110 Comments Tight at end-range. PT-OP-L Special Tests Start: 05/21/20 14:19 Freq: Status: Active Protocol: Document 05/21/20 09:00 DLM (Rec: 05/21/20 15:12 DLM [id number]) Special Tests Shoulder Special Tests Elevation Impingement Test Results positive on right Empty Can Test Results positive on right Drop Arm Rotator Cuff Test Results negative Apprehension Test Test Results negative on right Elbow Special Tests Raza Biceps Test Results negative PT-OP-M Strength Start: 05/21/20 14:19 Freq: Status: Active Protocol: Document 09/04/20 13:00 LRN (Rec: 09/04/20 13:46 LRN [id number]) Shoulder Strength Shoulder Manual Muscle Testing Left Comments Strength is 5/5 Right Flexion 5 Normal Extension 5 Normal Abduction (C5) 5 Normal Adduction 5 Normal External Rotation 5 Normal Internal Rotation 4+ Good+ Comments Discomfort in Lateral Deltoid with MMT of AB. PT-OP-Q Treatments Start: 05/21/20 14:19 Freq: Status: Active Protocol: Document 09/04/20 13:00 LRN (Rec: 09/04/20 13:46 LRN [id number]) Cardio Equipment Upper Body Ergometer (UBE) Duration (Minutes) 10 RPM 70 Seat Position 10 Height hgt 3.5 for 4', hgt 3 for 6' fwd/bkwd Other Blocks under feet. 5' 70 rpm, 2.5' 65 rpm fwd/bkwd Therapeutic Exercises Supine Exercises Shoulder AB Supine Exercise Name Shoulder AB stretch Side bilateral Reps/Minutes 4' Comments ROM taken ER stretch Supine Exercise Name ER stretch review Side right Reps/Minutes 3' AAROM Shoulder flexion Supine Exercise Name AROM & AAROM Side bilateral Reps/Minutes 6' Comments ROM taken after stretching Sitting Exercises Pulleys Sitting Exercise Name Flex/AB with strap to hold R shldr infer/posterio glide Side right Reps/Minutes 14' Comments Extra time for scapular depression to be pain free & w /strap, ROM taken Self-Care/Home Management Treatment Education Other Education Discussed goals & plan of care . Activities Self-Care/Home Management Activities I/S pt to focus on stretching of R shoulder for improved shoulder AB mobility with control of scapula. PT-OP-R Modalities Start: 05/21/20 14:19 Freq: Status: Active Protocol: Document 08/14/20 12:52 LRN (Rec: 08/14/20 13:46 LRN [id number]) Hot Pack/Cold Pack Treatment Cold Pack Location right shoulder Patient Position Supine Treatment Duration (minutes) 7 Patient Tolerance Good PT-OP-T Assessment and Plan Start: 05/21/20 14:19 Freq: Status: Active Protocol: Document 09/04/20 13:00 LRN (Rec: 09/04/20 13:46 LRN [id number]) Physical Therapy Assessment Rehab Potential Rehabilitation Potential Excellent Evaluation Complexity Number of Personal Factors/Comorbidities 1-2 Number of Body Systems Impaired 3 Clinical Presentation at Evaluation Stable Impairments Impairments Pain,ROM,Strength Goals Strength Impairment Right shoulder weakness with pain Short Term Goal (STG) Increase right shoulder strength to 4+/5 (06/26/20: Flex, Ext, ER, IR is 5/5; AB is 4+/5, horiz AB/AD is 4/5). (09/04/20: Strength is 5/5 except IR is 4+/5 bilaterally) STG Duration 07/23/20 (09/04/20: MET GOAL) Communication Specialist Goal (LTG) Return to regular aerobic and weight lifting exercise routine at home. (09/04/20: Pt has returned to Pilates, yoga, and aerobic exercise). LTG Duration 10/19/20 (09/04/20: MET GOAL) ROM Impairment Right shoulder limited with pain Short Term Goal (STG) Increase shoulder flexion to 170 degrees and abduction to 150 degrees. (09/04/20: R shoulder active flex in sitting: active flex is 155 degs, AB is 155) STG Duration 07/23/20 (09/04/20: Flex ROM limited, AB goal met) Communication Specialist Goal (LTG) Increase right shoulder AROM to WNL LTG Duration 10/19/20 (09/04/20: Improving, NOT MET GOAL) Pain Impairment 2/10 pain, limited ROM and strength Short Term Goal (STG) She will be able to reach up over head without increased pain (09/04/20: Pt able to reach over head without pain). STG Duration 07/23/20 (09/04/20: MET GOAL) Communication Specialist Goal (LTG) She will be able to reach behind her back without increased pain. (09/04/20: Pt able to reach behind back without pain) LTG Duration 10/19/20 (09/04/20: MET GOAL) Progress Towards Goals Progress Comments PAIN: STG & LTG MET. ROM: Improving. R shoulder AROM (supine): Flex improved from 130 deg's initially to 155 deg's; AB improved from 80 deg's initially to 110 deg's. STRENGTH: STG & STG MET. Assessment Summary Assessment Pt has greatly improved in R shoulder strength and pain complaints. She has improved her shoulder flexion to be symmetrical with the left, but her shoulder AB & ER is limited. She has returned to various exercise programs ( yoga, pilates, aerobic ex). The pt would like to attend therapy one more visit for exercise review and placement onto her HEP in order to be able to continue without confusion. I believe this would be a good idea and appropriate; therefore I recommend continuation of therapy for 1-2 more visits for placement on her HEP. Physical Therapy Plan Frequency and Duration Frequency of Treatment Intermittent Duration of Treatment 4 weeks Plan of Care Start Date 09/04/20 Plan of Care End Date 10/19/20 Therapeutic Interventions Therapeutic Interventions Home Exercise Program,Joint Mobilizations,Manual Therapy, Patient/Caregiver Education, Self-Care/Home Management, Therapeutic Exercises Modalities Cold Pack/Ice Massage,Hot Packs,Ultrasound Next Visit Focus/Plan Next Note Type Progress Note Next Visit Plan Review and placement onto her HEP with handouts as needed to decrease pt confusion on exercises. If needed, stretch capsule inferiorly. HEP to focus on strengthen R Lat Dorsi, RC and proper scapulohumeral rhythm. Review shoulder AB AROM with scapular retraining, handout for shoulder AB. Save some time for possible cryotherapy at end of treatment.
--- NOTE | 2020-09-04 17:31 | PT.OPPOC ---
Physical, Occupational & Speech Therapy At [facility] Current Diagnoses Pain in unspecified shoulder (09/04/20) Muscle weakness (generalized) (09/04/20) Impingement syndrome of right shoulder (09/04/20) Visit Care Team Role Provider Type JUAN Tay Attending Provider Advanced Pan Dumper Primary Care Provider Referring Provider Specialty: Medical Address: [address] [place] [address], [facility] Email: [email or web address] Plan Of Care PT-OP-T Assessment and Plan Start: 05/21/20 14:19 Freq: Status: Active Protocol: Document 09/04/20 13:00 LRN (Rec: 09/04/20 13:46 LRN [id number]) Physical Therapy Assessment Rehab Potential Rehabilitation Potential Excellent Evaluation Complexity Number of Personal Factors/Comorbidities 1-2 Number of Body Systems Impaired 3 Clinical Presentation at Evaluation Stable Impairments Impairments Pain,ROM,Strength Goals Strength Impairment Right shoulder weakness with pain Short Term Goal (STG) Increase right shoulder strength to 4+/5 (06/26/20: Flex, Ext, ER, IR is 5/5; AB is 4+/5, horiz AB/AD is 4/5). (09/04/20: Strength is 5/5 except IR is 4+/5 bilaterally) STG Duration 07/23/20 (09/04/20: MET GOAL) Snf Goal (LTG) Return to regular aerobic and weight lifting exercise routine at home. (09/04/20: Pt has returned to Pilates, yoga, and aerobic exercise). LTG Duration 10/19/20 (09/04/20: MET GOAL) ROM Impairment Right shoulder limited with pain Short Term Goal (STG) Increase shoulder flexion to 170 degrees and abduction to 150 degrees. (09/04/20: R shoulder active flex in sitting: active flex is 155 degs, AB is 155) STG Duration 07/23/20 (09/04/20: Flex ROM limited, AB goal met) Snf Goal (LTG) Increase right shoulder AROM to WNL LTG Duration 10/19/20 (09/04/20: Improving, NOT MET GOAL) Pain Impairment 2/10 pain, limited ROM and strength Short Term Goal (STG) She will be able to reach up over head without increased pain (09/04/20: Pt able to reach over head without pain). STG Duration 07/23/20 (09/04/20: MET GOAL) Trimmer Hand Goal (LTG) She will be able to reach behind her back without increased pain. (09/04/20: Pt able to reach behind back without pain) LTG Duration 10/19/20 (09/04/20: MET GOAL) Progress Towards Goals Progress Comments PAIN: STG & LTG MET. ROM: Improving. R shoulder AROM (supine): Flex improved from 130 deg's initially to 155 deg's; AB improved from 80 deg's initially to 110 deg's. STRENGTH: STG & STG MET. Assessment Summary Assessment Pt has greatly improved in R shoulder strength and pain complaints. She has improved her shoulder flexion to be symmetrical with the left, but her shoulder AB & ER is limited. She has returned to various exercise programs ( yoga, pilates, aerobic ex). The pt would like to attend therapy one more visit for exercise review and placement onto her HEP in order to be able to continue without confusion. I believe this would be a good idea and appropriate; therefore I recommend continuation of therapy for 1-2 more visits for placement on her HEP. Physical Therapy Plan Frequency and Duration Frequency of Treatment Intermittent Duration of Treatment 4 weeks Plan of Care Start Date 09/04/20 Plan of Care End Date 10/19/20 Therapeutic Interventions Therapeutic Interventions Home Exercise Program,Joint Mobilizations,Manual Therapy, Patient/Caregiver Education, Self-Care/Home Management, Therapeutic Exercises Modalities Cold Pack/Ice Massage,Hot Packs,Ultrasound Next Visit Focus/Plan Next Note Type Progress Note Next Visit Plan Review and placement onto her HEP with handouts as needed to decrease pt confusion on exercises. If needed, stretch capsule inferiorly. HEP to focus on strengthen R Lat Dorsi, RC and proper scapulohumeral rhythm. Review shoulder AB AROM with scapular retraining, handout for shoulder AB. Save some time for possible cryotherapy at end of treatment. Plan of Care Dates Plan of Care Start Date 09/04/20 Plan of Care End Date 10/19/20 Electronically Signed by: Rachel Wilder, PT 09/04/20 [id number] Please Sign and Return: I have reviewed this Plan of Care and certify that the skilled therapy services above are required to meet the patient?s needs. Physician Signature Date Printed Name and Credentials Clinical Instructor Signature Printed Name and Credentials
--- NOTE | 2020-09-18 17:36 | PT.OTN ---
Current Diagnoses Pain in unspecified shoulder (09/18/20) Muscle weakness (generalized) (09/18/20) Impingement syndrome of right shoulder (09/18/20) Physical Therapy Treatment Note PT-OP-A Visit Information Start: 05/21/20 14:19 Freq: Status: Active Protocol: Document 09/18/20 12:44 LRN (Rec: 09/18/20 13:34 LRN [id number]) Out-Patient Physical Therapy Visit Information Visit Information Visit Type Treatment Note Visit Start Time 12:44 Visit Stop Time 13:29 Total Visit Minutes 45 Visit Number 14 Evaluation Information Evaluation Date 05/21/20 Precautions Precautions BiPolar Disorder Narcolepsy PT-OP-B Current Condition Start: 05/21/20 14:19 Freq: Status: Active Protocol: Document 05/21/20 09:00 DLM (Rec: 05/21/20 15:12 DLM [id number]) Current Condition History of Current Condition Onset Date 9 months hx Current Complaints right shoulder pain History of Current Condition She developed right shoulder pain 9 months ago. She reports at that time she was sleeping on her side with her hands between her knees and she thinks she irritated her shoulder. The pain has continued since that time and it limits the functional use or her right shoulder. Prior Treatments and Tests none Future Testing and Treatments Planned none planned Treatment Goals Patient/Caregiver Goals resolve the pain in right shoulder for normal use Prior Functional Status Baseline Function- ADL's Independent Baseline Function- Mobility Independent Baseline Function- Gait Independent without a device Baseline Function- Work/School she is unemployed Baseline Function- Recreation/Hobbies works out regularly; Aerobics, Lifting weights, Pilates, Walking Baseline Function- Other Right hand dominant Current Functional Impairments (Reported) Functional Limitations- ADL's pain reaching her back with right UE, pain reaching up, pain cleaning shower Functional Limitations- Mobility/Gait no changes Functional Limitations- Work/School she wants to get a job and is worried that her right shoulder pain will limit her ability to work, 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 Pt thinks she is ready for discharge. Patient Questionnaires Quick Dash- Upper Extremity Quick Dash UE Score 11.36 Quick Dash UE Impairment 1 to 19% Impaired (Score 1-19) PT-OP-F Manual Assessment Start: 05/21/20 14:19 Freq: Status: Active Protocol: Document 05/21/20 09:00 DLM (Rec: 05/21/20 15:12 DLM [id number]) Manual Assessments Soft Tissue Assessment Soft Tissue Mobility Assessment soft tissue tightness anterior shoulder and biceps with tenderness Joint Mobility Assessment Joint Mobility Assessment mild to moderate decrease in post and inferior glides right shoulder compared to left PT-OP-J Posture/Palpation/Skin Start: 05/21/20 14:19 Freq: Status: Active Protocol: Document 05/21/20 09:00 DLM (Rec: 05/21/20 15:12 DLM [id number]) Posture Evaluation Comments Posture Comments flexed posture with rounded shoulders and forward head Palpation Assessment Location Right shoulder Palpation Location right shoulder joint area Palpation Findings Tenderness Palpation Details anterior shoulder joint tender , biceps tendon tender, No AC joint tenderness, mild to moderate tightness in her Upper trap, mild tightness right pect major, no scapular area tenderness PT-OP-K Range of Motion Start: 05/21/20 14:19 Freq: Status: Active Protocol: Document 09/18/20 12:44 LRN (Rec: 09/18/20 13:34 LRN [id number]) Shoulder Goniometric Range of Motion Shoulder Left active sitting Testing Position Sitting Flexion 145 Abduction 180 Internal Rotation Behind Back (text) T11 R Active Sitting Testing Position Sitting Flexion 150 Abduction 180 Internal Rotation Behind Back (text) T11 Comments AB is in scapular plane PT-OP-L Special Tests Start: 05/21/20 14:19 Freq: Status: Active Protocol: Document 05/21/20 09:00 DLM (Rec: 05/21/20 15:12 DLM [id number]) Special Tests Shoulder Special Tests Elevation Impingement Test Results positive on right Empty Can Test Results positive on right Drop Arm Rotator Cuff Test Results negative Apprehension Test Test Results negative on right Elbow Special Tests Raza Biceps Test Results negative PT-OP-M Strength Start: 05/21/20 14:19 Freq: Status: Active Protocol: Document 09/04/20 13:00 LRN (Rec: 09/04/20 13:46 LRN [id number]) Shoulder Strength Shoulder Manual Muscle Testing Left Comments Strength is 5/5 Right Flexion 5 Normal Extension 5 Normal Abduction (C5) 5 Normal Adduction 5 Normal External Rotation 5 Normal Internal Rotation 4+ Good+ Comments Discomfort in Lateral Deltoid with MMT of AB. PT-OP-Q Treatments Start: 05/21/20 14:19 Freq: Status: Active Protocol: Document 09/18/20 12:44 LRN (Rec: 09/18/20 13:34 LRN [id number]) Cardio Equipment Upper Body Ergometer (UBE) Duration (Minutes) 10 RPM 70 Seat Position 10 Height hgt 3.5 for 4', hgt 3 for 6' fwd/bkwd Other Blocks under feet. 5' 70 rpm, 2.5' 65 rpm fwd/bkwd Therapeutic Exercises Supine Exercises Shoulder IR/ER Supine Exercise Name Shoulder IR/ER stretch Side right Reps/Minutes 7' Standing Exercises Shoulder IR strengthening Standing Exercise Name Shoulder IR strengthening Side right Reps/Minutes 15x 2 Shoulder IR Standing Exercise Name Towel stretch Side right Reps/Minutes 5' Comments Extra time needed for training of max stretch and positioning. Shoulder Ext Standing Exercise Name Shoulder ER Side right Reps/Minutes 15x 2 Comments phys cuing needed for rhomboids and infraspinatus Shoulder ER Standing Exercise Name shoulder External rotation Side bilateral Resistance L3 exercise band Reps/Minutes 3 x 10 reps Comments v. & phy.cues for erect posture Self-Care/Home Management Treatment Education Patient Education Home Exercise Program Other Education Reviewed and discussed HEP. Educated pt in shoes that promote improved posture. Activities Self-Care/Home Management Activities Issued & reviewed ex's on her HEP for pt to focus on. PT-OP-R Modalities Start: 05/21/20 14:19 Freq: Status: Active Protocol: Document 08/14/20 12:52 LRN (Rec: 08/14/20 13:46 LRN [id number]) Hot Pack/Cold Pack Treatment Cold Pack Location right shoulder Patient Position Supine Treatment Duration (minutes) 7 Patient Tolerance Good PT-OP-T Assessment and Plan Start: 05/21/20 14:19 Freq: Status: Active Protocol: Document 09/18/20 12:44 LRN (Rec: 09/18/20 13:34 LRN [id number]) Physical Therapy Assessment Goals Strength Impairment Right shoulder weakness with pain Short Term Goal (STG) Increase right shoulder strength to 4+/5 (06/26/20: Flex, Ext, ER, IR is 5/5; AB is 4+/5, horiz AB/AD is 4/5). (09/04/20: Strength is 5/5 except IR is 4+/5 bilaterally) STG Duration 07/23/20 (09/04/20: MET GOAL) Nurse General Duty Goal (LTG) Return to regular aerobic and weight lifting exercise routine at home. (09/04/20: Pt has returned to Pilates, yoga, and aerobic exercise). LTG Duration 10/19/20 (09/04/20: MET GOAL) ROM Impairment Right shoulder limited with pain Short Term Goal (STG) Increase shoulder flexion to 170 degrees and abduction to 150 degrees. (09/18/20: R shoulder active flex in sitting: active flex is 155 degs, AB is 180 degs in scapular plane) NOTE: L shoulder active flex in sitting is flex 145 degs, AB is 180 degs in scapular plane. STG Duration 07/23/20 (09/18/20: Flex ROM limited although normal, AB goal met) Assisted Goal (LTG) Increase right shoulder AROM to WNL. LTG Duration 10/19/20 (09/18/20: MET GOAL) Pain Impairment 2/10 pain, limited ROM and strength Short Term Goal (STG) She will be able to reach up over head without increased pain (09/04/20: Pt able to reach over head without pain). STG Duration 07/23/20 (09/04/20: MET GOAL) Assisted Goal (LTG) She will be able to reach behind her back without increased pain. (09/04/20: Pt able to reach behind back without pain) LTG Duration 10/19/20 (09/04/20: MET GOAL) Assessment Summary Assessment Pt met goals except for ROM of R shoulder, but it should be noted that her L shoulder mobility is equal (except less with flexion) to the R side. The pt has done very well with therapy and has returned to her prior level of activity and is ready to be placed on her independent home program. The pt showed good understanding of her home program. Physical Therapy Plan Discharge Physical Therapy Discharge Reasons Goals Met Discharge Comments Pt has returned to her prior level of function and is being discharged from therapy. Thank you for your referral.
== END 2020-09-21 08:04 | disposition home or self-care (01) ==
LOC: PHYS 12:45
PROVIDERS: PCP Registered Nurse Diabetes Educator; Referring Provider Registered Nurse Diabetes Educator; Visit Provider Registered Nurse Diabetes Educator
DX: M25.519 Pain in unspecified shoulder (principal); M75.41 Impingement syndrome of right shoulder; M62.81 Muscle weakness (generalized)
CPT/HCPCS: 97010; 97110; 97140; 97162; 97535

== ENCOUNTER → 2021-02-02 06:45 | Outpatient (CLI) | payer MEDICARE, SELFPAY ==
[2021-02-02 15:45] LABS: Adenovirus F 40/41 Not Detected (Not Detect); Astrovirus Not Detected (Not Detect); Campylobacter Not Detected (Not Detect); Clostridium difficile toxin AB Not Detected (Not Detect); Cryptosporidium Not Detected (Not Detect); Cyclospora cayetanensis Not Detected (Not Detect); Entamoeba histolytica Not Detected (Not Detect); Enteroaggregative E.coli Not Detected (Not Detect); Enteropathogenic E.coli Not Detected (Not Detect); Enterotoxigenic E.coli It/st Not Detected (Not Detect); Giardia lamblia Not Detected (Not Detect); Norovirus GI/GII Not Detected (Not Detect); Plesiomonsa shigelloides Not Detected (Not Detect); Rotavirus A Not Detected (Not Detect); Salmonella Not Detected (Not Detect); Sapovirus Not Detected (Not Detect); Shiga-like toxin-prod E.coli Not Detected (Not Detect); Shigella/Enteroinvasive E.coli Not Detected (Not Detect); Vibrio Not Detected (Not Detect); Vibrio cholerae Not Detected (Not Detect); Yersinia enterocolitica Not Detected (Not Detect)
== END ==
PROVIDERS: Referring Provider Specialist; Visit Provider Specialist
DX: K52.9 Noninfective gastroenteritis and colitis, unspecified (principal)
CPT/HCPCS: 87177; 87507

== ENCOUNTER → 2021-09-11 17:08 | Outpatient (CLI) | payer MEDICARE, SELFPAY ==
[2021-09-11 19:02] LABS: COVID19 -Nasal RAPID Negative (Negative)
== END ==
PROVIDERS: Referring Provider Nurse Practitioner Critical Care Medicine; Visit Provider Nurse Practitioner Critical Care Medicine
DX: Z20.822 Contact with and (suspected) exposure to COVID-19 (principal)
CPT/HCPCS: 87635

== ENCOUNTER → 2021-11-17 11:24 | Outpatient (CLI) | payer MEDICARE, SELFPAY ==
[2021-11-17 11:54] LABS: Add Manual Diff / Slide Review NO; Basophils Absolute Auto 100 /uL (0-100); Basophils Percent Auto 0.9 % (0-2); Eosinophils Absolute Auto 200 /uL (0-450); Eosinophils Percent Auto 2.6 % (2-4); Hematocrit 31.6 % (36-46); Hemoglobin 10.2 g/dL (12.0-16.0); Lymphocytes Absolute Auto 2800 /uL (1100-4500); Lymphocytes Percent Auto 42.9 % (25-40); Mean Corpuscular HGB Conc 32.5 % (30-36); Mean Corpuscular Hemoglobin 26.4 PG (26-34); Mean Corpuscular Volume 81.3 fL (80-100); Monocytes Absolute Auto 400 /uL (0-900); Monocytes Percent Auto 5.6 % (3-14); Neutrophils Absolute Auto 3100 /uL (1500-7000); Platelet Count 385 X10^3/uL (150-400); Red Blood Cell Count 3.88 X10^6/uL (4.0-5.2); Red Cell Distribution Width 14.4 % (11.6-14.8); White Blood Cell Count 6.6 X10^3/uL (4.5-11.0)
[2021-11-17 12:33] LABS: Alanine Aminotransferase 16 IU/L (<35); Albumin 3.6 g/dL (3.5-5.0); Albumin Globulin Ratio 1.2 (1.0-2.8); Alkaline Phosphatase 76 U/L (38-126); Aspartate Aminotransferase 23 IU/L (14-36); BUN Creatinine Ratio 11.4 (6-22); Bilirubin Total 0.3 mg/dL (0.2-1.3); Blood Urea Nitrogen 10 mg/dL (7-17); Calcium 8.6 mg/dL (8.4-10.2); Carbon Dioxide 27 mmol/L (22-32); Chloride 107 mmol/L (98-107); Estimated Glomerular Filt Rate > 60 mL/min (>60); Globulin 2.9 g/dL (1.7-4.1); Glucose 89 mg/dL (70-100); HEMOLYSIS < 15 (0-50); Sodium 138 mmol/L (137-145); Total Protein 6.5 g/dL (6.3-8.2)
[2021-11-17 13:04] LABS: Ferritin 5 ng/mL (6-137)
== END ==
PROVIDERS: Family Medicine
DX: D64.9 Anemia, unspecified (principal); Z00.00 Encounter for general adult medical examination without abnormal findings
CPT/HCPCS: 36415; 80053; 82728; 85025

== ENCOUNTER → 2022-01-19 14:02 | Outpatient (CLI) | payer MEDICARE, SELFPAY ==
--- NOTE | 2022-01-19 14:04 | DI.MG.S_ITS ---
BILATERAL DIGITAL SCREENING MAMMOGRAM 3D/2D WITH CAD: 01/19/2022 CLINICAL: Routine screening. Comparison is made to exams dated: 06/18/2020 mammogram - [facility] and 10/08/2018 mammogram - outside [facility]. The tissue of both breasts is heterogeneously dense. This may lower the sensitivity of mammography. Current study was also evaluated with a Computer Aided Detection (CAD) system. There is a possible asymmetry with fine calcifications in the right breast middle depth superior region seen on the mediolateral oblique view only. There is architectural distortion associated with the asymmetry. No other significant masses, calcifications, or other findings are seen in either breast. IMPRESSION: INCOMPLETE: NEEDS ADDITIONAL IMAGING EVALUATION The possible asymmetry in the right breast is indeterminate. Additional views with possible ultrasound are recommended. This exam was interpreted at Station ID: [id number]. NOTE: For mammograms, a report in lay terms will be sent to the patient. Approximately 15% of breast malignancies will not be visualized mammographically. In the management of a palpable breast mass, a negative mammogram must not discourage biopsy of a clinically suspicious lesion. Electronically Signed By: Jeancarlos Junior M.D., jr/oleg:01/19/2022 15:04:52 letter sent: Additional Imaging Needed ACR BI-RADS Category 0: Incomplete 3340F
== END ==
PROVIDERS: Referring Provider Family Medicine; Visit Provider Family Medicine
DX: Z12.31 Encounter for screening mammogram for malignant neoplasm of breast (principal)
CPT/HCPCS: 77063; 77067

== ENCOUNTER → 2022-01-21 08:09 | Outpatient (CLI) | payer MEDICARE, SELFPAY ==
[2022-01-21 09:12] LABS: Hemoglobin A1C% w Est Avg Glu 4.9 % (4.0-6.0)
[2022-01-21 09:48] LABS: Alanine Aminotransferase 29 IU/L (<35); Albumin 3.8 g/dL (3.5-5.0); Albumin Globulin Ratio 1.3 (1.0-2.8); Alkaline Phosphatase 81 U/L (38-126); Aspartate Aminotransferase 38 IU/L (14-36); BUN Creatinine Ratio 10.8 (6-22); Bilirubin Total 0.4 mg/dL (0.2-1.3); Blood Urea Nitrogen 10 mg/dL (7-17); Calcium 8.8 mg/dL (8.4-10.2); Carbon Dioxide 26 mmol/L (22-32); Chloride 105 mmol/L (98-107); Cholesterol 257 mg/dL (140-199); Estimated Glomerular Filt Rate > 60 mL/min (>60); Globulin 2.9 g/dL (1.7-4.1); Glucose 86 mg/dL (70-100); HEMOLYSIS < 15 (0-50); Potassium 4.1 mmol/L (3.4-5.1); Sodium 137 mmol/L (137-145); Total Protein 6.7 g/dL (6.3-8.2); Triglycerides 211 mg/dL (35-150)
[2022-01-21 10:05] LABS: HDL Cholesterol 137 mg/dL (40-60); LDL Cholesterol Calculated 78 mg/dL (<100)
[2022-01-21 10:15] LABS: Thyroid Stimulating Hormone 3.07 uIU/mL (0.47-4.68)
== END ==
PROVIDERS: PCP Family Medicine; Referring Provider Family Medicine; Visit Provider Family Medicine
DX: E66.09 Other obesity due to excess calories (principal); Z68.30 Body mass index [BMI] 30.0-30.9, adult
CPT/HCPCS: 36415; 80053; 80061; 83036; 84443

== ENCOUNTER → 2022-03-09 13:25 | Outpatient (CLI) | payer MEDICARE, SELFPAY ==
--- NOTE | 2022-03-09 13:29 | DI.MG.S_ITS ---
UNILATERAL RIGHT DIGITAL DIAGNOSTIC MAMMOGRAM 3D/2D WITH ADDITIONAL VIEWS: 03/09/2022 CLINICAL: Additional evaluation requested from prior study. Comparison is made to exams dated: 01/19/2022 mammogram, 06/18/2020 mammogram - [facility], and 10/08/2018 mammogram - outside location. The right breast is heterogeneously dense, which may obscure small masses (category c / 51-75% glandular tissue). The previously questioned asymmetry in the right breast middle depth superior region is no longer demonstrated. The calcifications seen previously are less conspicious and are not grouped. No other significant masses or calcifications are seen in the breast. IMPRESSION: BENIGN There is no mammographic evidence of malignancy. A 1 year screening mammogram is recommended. This exam was interpreted at Station ID: [id number]. NOTE: For mammograms, a report in lay terms will be sent to the patient. Approximately 15% of breast malignancies will not be visualized mammographically. In the management of a palpable breast mass, a negative mammogram must not discourage biopsy of a clinically suspicious lesion. Electronically Signed By: Jeancarlos Junior M.D. jr/:03/09/2022 13:56:37 letter sent: Normal Exam ACR BI-RADS Category 2: Benign Finding(s) 3342F
== END ==
PROVIDERS: PCP Family Medicine; Referring Provider Family Medicine; Visit Provider Family Medicine
DX: R92.8 Other abnormal and inconclusive findings on diagnostic imaging of breast (principal)
CPT/HCPCS: 77065; G0279

== ENCOUNTER → 2022-04-25 12:17 | Outpatient (CLI) | payer MEDICARE, SELFPAY ==
[2022-04-25 15:05] LABS: Clostridium Difficile Tox PCR Negative for C. diff (Negative)
== END ==
PROVIDERS: PCP Family Medicine; Referring Provider Internal Medicine Gastroenterology; Visit Provider Internal Medicine Gastroenterology
DX: K64.9 Unspecified hemorrhoids (principal); R19.7 Diarrhea, unspecified
CPT/HCPCS: 87493

== ENCOUNTER → 2022-08-10 16:07 | Outpatient (CLI) | payer MEDICARE, MEDICAID, SELFPAY ==
[2022-08-10 16:49] LABS: Appearance Urine UA SL CLOUDY; Bilirubin Urine UA NEGATIVE (NEGATIVE); Color Urine UA YELLOW; Glucose Urine UA NEGATIVE (Negative); Ketones Urine UA NEGATIVE (NEGATIVE); Leukocyte Esterase Urine UA TRACE (NEGATIVE); Nitrite Urine UA NEGATIVE (Negative); Occult Blood Urine UA NEGATIVE (Negative); Protein Urine UA NEGATIVE (Negative); Urobilinogen Urine UA 0.2 E.U./dL (0.2)
[2022-08-10 16:54] LABS: pH Urine UA 7.5 (4.5-8.0)
[2022-08-10 17:04] LABS: Bacteria Urine None Seen; Culture Indicated Urine Cult Not Indicated; RBC Urine None Seen (0-5/HPF); Squamous Epithelial Cell Urine 5-10 /HPF (0-5/HPF); WBC Urine 1-5/HPF (0-5/HPF)
== END ==
PROVIDERS: PCP Family Medicine; Referring Provider Nurse Practitioner; Visit Provider Nurse Practitioner
DX: R39.9 Unspecified symptoms and signs involving the genitourinary system (principal)
CPT/HCPCS: 81001

== ENCOUNTER → 2022-11-24 15:21 | Outpatient (CLI) | payer MEDICARE, SELFPAY ==
[2022-11-29 10:52] LABS: Anti Mullerian Hormone 0.143 ng/mL (.)
== END ==
PROVIDERS: PCP Family Medicine; Referring Provider Obstetrics & Gynecology; Visit Provider Obstetrics & Gynecology
DX: Z31.69 Encounter for other general counseling and advice on procreation (principal)
CPT/HCPCS: 36415; 82397; 84146

== ENCOUNTER → 2022-12-16 08:52 | Outpatient (CLI) | payer MEDICARE, SELFPAY ==
--- NOTE | 2022-12-16 08:54 | DI.MRI.S_ITS ---
PROCEDURE: MR BRAIN (PITUITARY) WWO CON INDICATIONS: Rule out Pituitary adenoma TECHNIQUE: Noncontrast sagittal and axial FLAIR, axial gradient echo, axial diffusion and ADC through the brain. Thin-slice sagittal and coronal T1 spin echo, coronal T2 fast spin echo through the pituitary. After the administration contrast, optional dynamic coronal T1 spin echo, thin-slice coronal and sagittal T1 spin echo images through the pituitary fossa; axial and coronal and sagittal T1 spin echo with fat saturation through the brain. COMPARISON: None. FINDINGS: Image quality: Excellent. Pituitary Gland: The pituitary gland is normal in size and appearance. No pituitary adenomas are identified. The pituitary stalk is midline. CSF Spaces: Ventricles are normal in size and shape. Basal cisterns are patent. No extra-axial fluid collections. Brain: No intracranial bleeds or mass effects. No abnormal intracranial enhancement. Mulligan-white matter interface is intact. Diffusion weighted images demonstrate no acute ischemic insults. Brainstem is normal. Normal intravascular flow voids are present. Skull and face: Calvarial marrow is normal in signal. Orbits appear normal. Sinuses: Sinuses and mastoids are clear. IMPRESSION: The pituitary gland is in size and appearance. No pituitary adenomas are identified. Dictated by: Adama Candelario M.D. on 12/16/2022 at 11:30 Approved by: Adama Candelario M.D. on 12/16/2022 at 11:34
== END ==
PROVIDERS: PCP Family Medicine; Referring Provider Obstetrics & Gynecology; Visit Provider Obstetrics & Gynecology
DX: E22.1 Hyperprolactinemia; R79.89 Other specified abnormal findings of blood chemistry
CPT/HCPCS: 70553; A9579

== ENCOUNTER → 2023-01-26 16:13 | Outpatient (CLI) | payer MEDICARE, SELFPAY ==
--- NOTE | 2023-01-26 16:14 | DI.MG.S_ITS ---
BILATERAL DIGITAL SCREENING MAMMOGRAM 3D/2D WITH CAD: 01/26/2023 CLINICAL: Routine screening. Comparison is made to exams dated: 01/19/2022 mammogram, 06/18/2020 mammogram - [facility], and 10/08/2018 mammogram - outside location. Both breasts are heterogeneously dense, which may obscure small masses (category c / 51-75% glandular tissue). Current study was also evaluated with a Computer Aided Detection (CAD) system. No significant masses, calcifications, or other findings are seen in either breast. There has been no significant interval change. IMPRESSION: NEGATIVE There is no mammographic evidence of malignancy. A 1 year screening mammogram is recommended. Based on the Tyrer Cuzick model (a risk assessment model) the patient's lifetime risk is 16.7% and her 10 year risk is 3.7%. According to the ACR, ACS, and NCCN guidelines, an annual breast MRI exam along with mammogram is recommended if the patient's lifetime risk is 20% or greater. This exam was interpreted at Station ID: [id number]. NOTE: For mammograms, a report in lay terms will be sent to the patient. Approximately 15% of breast malignancies will not be visualized mammographically. In the management of a palpable breast mass, a negative mammogram must not discourage biopsy of a clinically suspicious lesion. Electronically Signed By: Cuong adan/oleg:01/27/2023 08:42:44 letter sent: Normal Exam ACR BI-RADS Category 1: Negative [id number]
== END ==
PROVIDERS: PCP Family Medicine; Referring Provider Family Medicine; Visit Provider Family Medicine
DX: Z12.31 Encounter for screening mammogram for malignant neoplasm of breast (principal)
CPT/HCPCS: 77063; 77067

== ENCOUNTER 2023-05-19 21:29 | Emergency (ER) | payer MEDICARE, MEDICAID, SELFPAY ==
[2023-05-19 21:55] VITALS: BP 103/58; PULSE 82; RESP 18; TEMP 36.6; O2SAT 98; BMI 29.9
--- NOTE | 2023-05-19 22:25 | ED.EAR ---
HPI - Ear Problem General Chief complaint: Ear Stated complaint: R ear ache/ t-4 Time Seen by Provider: 05/19/23 22:19 Source: patient Mode of arrival: Ambulatory History of Present Illness HPI Narrative: 47-year-old female presents with 4 days of right ear pain. She states that symptoms began after using a Q-tip and have progressed since onset. Taking Tylenol without significant relief. Related Data Home Medications Medication Instructions Recorded Confirmed fluticasone furoate 50 inhalation 03/09/20 05/17/23 mcg/actuation blister powder for inhalation modafinil 200 mg tablet (Provigil) 200 mg PO BID 03/09/20 05/17/23 naproxen 500 mg tablet (Naprosyn) 500 mg PO BID PRN 03/09/20 05/17/23 ondansetron 4 mg disintegrating 8 mg PO Q8H 03/09/20 05/17/23 tablet sodium oxybate 500 mg/mL oral 2.5 gram PO BEDTIME 03/09/20 05/17/23 solution sucralfate 1 gram tablet 1 gram PO BID 03/09/20 05/17/23 metformin 500 mg tablet 1,000 mg PO BID 08/14/20 05/17/23 benztropine 1 mg tablet 1 mg PO DAILY 01/02/23 05/17/23 betamethasone, augmented 0.05 % 1 applic topical BID PRN 01/02/23 05/17/23 topical ointment (Diprolene (augmented)) methylphenidate HCl 20 mg 20 mg PO BID 01/02/23 05/17/23 tablet,extended release Previous Rx's Medication Instructions Recorded drospirenone 3 mg-ethinyl 1 tab PO DAILY #84 tabs 04/06/20 estradiol 0.02 mg tablet (Estelle (28)) omeprazole 20 mg capsule,delayed 20 mg PO BID #120 caps 05/27/20 release lurasidone 80 mg tablet 80 mg PO DAILY #90 tabs 08/14/20 paliperidone 9 mg tablet,extended 9 mg PO DAILY #90 tabs 08/14/20 release 24 hr venlafaxine 37.5 mg tablet 112.5 mg (3 x 37.5 mg) PO DAILY 90 08/14/20 days #270 tabs lithium carbonate 300 mg tablet 300 mg PO .COMPLEX #90 tabs 10/26/20 benzocaine 15 mg-menthol 2.3 mg 1 jane PO .prn PRN prn #16 ea 09/11/21 lozenges (Cepacol Sore Throat (benzocaine-menthol)) fluticasone propionate 50 1 spray intranasal BID #16 grams 09/11/21 mcg/actuation nasal spray,suspension (Allergy Relief (fluticasone)) ibuprofen 600 mg tablet 600 mg PO Q8H PRN pain #20 tabs 09/11/21 loratadine-pseudoephedrine ER 10 1 tab PO DAILY PRN cold symptoms 09/11/21 mg-240 mg tablet,extended #10 tabs [id number] (Claritin-D 24 Hour) amoxicillin 875 mg-potassium 1 tab PO Q12H #14 tabs 05/19/23 clavulanate 125 mg tablet [id number] 3.5 4 drp EAR-RIGHT QID 7 days #10 mL 05/19/23 mg-10,000 unit/mL-1 % ear drops,susp Allergies Allergy/AdvReac Type Severity Reaction Status Date / Time No Known Drug Allergies Allergy Verified 05/17/23 10:08 Review of Systems Review of Systems Narrative: Negative except as noted above Patient History Medical History Dyslipidemia Narcolepsy (~1992) Overweight (BMI 25.0-29.9) PCOS (polycystic ovarian syndrome) (~1995) Sleep apnea (~2019) Weight gain due to medication Surgical History Anesthesia History of esophagogastroduodenoscopy (EGD) (~11/2019) History of colonoscopy (~11/2019) History of surgical removal of pilonidal cyst (~11/2004) Family History Brother Mental health problem Grandfather Brain tumor Grandfather Sleep apnea Grandmother Mental health problem Alcoholism Family/Other Schizophrenia Family/Other Schizophrenia Social History Smoking Status: Never smoker second hand exposure: No alcohol intake: never substance use type: does not use Smoking Status: Never smoker Exam Initial Vital Signs Initial Vital Signs: Vital Signs Temperature 97.8 F 05/19/23 21:55 Pulse Rate 82 05/19/23 21:55 Respiratory Rate 18 05/19/23 21:55 Blood Pressure 103/58 L 05/19/23 21:55 Pulse Oximetry 98 05/19/23 21:55 Oxygen Delivery Method Room Air 05/19/23 21:55 Const: Awake, alert, no acute distress, nontoxic appearing Eyes: PERRL, EOMI, conjunctiva normal ENT: L ear normal, L TM normal. R TM bulging, erythematous, R ear canal erythematous, no auricular tenderness Cardiac: regular rate, regular rhythm RESP: unlabored, clear bilaterally, no wheezing GI: Atraumatic, soft, nontender, nondistended, no rebound, no guarding MSK: Atraumatic, full range of motion, pulses equal Skin: Warm, Dry, intact, no rashes Neuro: AO x3, CN II-XII grossly intact, moves all extremities Psych: affect normal, mood normal, not suicidal, not homicidal Course Course Course Narrative: Internal and external right ear erythema with bulging TM Purulent material appears to be behind TM. Nontoxic in appearance, no mastoid or auricular tenderness. Will treat as Acute OM and will DC with po antibiotics. Topical drops rx'd for pain. ED return precautions discussed at bedside. Patient expressed understanding of the plan and is in agreement at this time. All questions answered at the time of discharge. Orders Ordered: Discontinued Medications Amoxicillin (Amoxicillin 250 Mg Capsule) 1,000 mg PO NOW ONE Stop: 05/19/23 22:26 Last Admin: 05/19/23 22:28 Dose: 1,000 mg Documented By: MAURICIO Vital Signs Vital signs: Vital Signs - 8 hr 05/19/23 21:55 05/19/23 22:36 Temperature 97.8 F Pulse Rate 82 78 Respiratory Rate 18 14 Blood Pressure 103/58 L 104/57 L Pulse Oximetry 98 96 Oxygen Delivery Method Room Air Room Air Discharge Plan Departure Patient Disposition: Home Clinical Impression: Otitis media, Acute otalgia Instructions: Middle Ear Infection Prescriptions: New amoxicillin-pot clavulanate 875-125 mg tablet 1 tab PO Q12H Qty: 14 0RF loxqdztp-spututwvx-IB 3.5-10,000-1 mg/mL-unit/mL-% drops,suspension 4 drp EAR-RIGHT QID 7 Days Qty: 10 0RF No Action fluticasone propionate [Allergy Relief (fluticasone)] 50 mcg/actuation spray,suspension 1 spray intranasal BID Qty: 16 0RF Rx Instructions: administer into each nostril loratadine-pseudoephedrine [Claritin-D 24 Hour] 10-240 mg tablet extended release 24 hr 1 tab PO DAILY PRN (Reason: cold symptoms) Qty: 10 0RF Cepacol Sore Throat (gera-men) 15-2.3 mg lozenge 1 jane PO .prn PRN (Reason: prn) Qty: 16 0RF ibuprofen 600 mg tablet 600 mg PO Q8H PRN (Reason: pain) Qty: 20 0RF metformin 500 mg tablet 1,000 mg PO BID lurasidone 80 mg tablet 80 mg PO DAILY Qty: 90 0RF Rx Instructions: Must administer with food (at least 350 calories) Hold until requested. venlafaxine 37.5 mg tablet 112.5 mg PO DAILY MDD 112.5mg 90 Days Qty: 270 1RF paliperidone 9 mg tablet extended release 24hr 9 mg PO DAILY Qty: 90 1RF omeprazole 20 mg capsule,delayed release(DR/EC) 20 mg PO BID Qty: 120 3RF lithium carbonate 300 mg tablet 300 mg PO .COMPLEX MDD 900 mg MDD Qty: 90 1RF Rx Instructions: 300 mg PO TAKE ONE TABLET IN THE MORNING AND TWO TABLETS AT BEDTIME; sucralfate 1 gram tablet 1 gram PO BID modafinil [Provigil] 200 mg tablet 200 mg PO BID Patient Comments: take after breakfast and lunch fluticasone furoate 50 mcg/actuation blister with device INHALATION naproxen [Naprosyn] 500 mg tablet 500 mg PO BID PRN sodium oxybate 500 mg/mL solution 2.5 gram PO BEDTIME Rx Instructions: administer the first dose at bedtime and the second dose 2.5-4 hours later ondansetron 4 mg tablet,disintegrating 8 mg PO Q8H drospirenone-ethinyl estradiol [Estelle (28)] 3-0.02 mg tablet 1 tab PO DAILY Qty: 84 3RF betamethasone, augmented [Diprolene (augmented)] 0.05 % ointment 1 applic topical BID PRN benztropine 1 mg tablet 1 mg PO DAILY methylphenidate HCl 20 mg tablet extended release 20 mg PO BID Referrals: Nola Varma MD [Primary Care Provider] - Stand Alone Forms: Patient Portal/API
[2023-05-19] MEDS: AMOXICILLIN 250 MG CAPSULE 1000 MG PO (22:28)
[2023-05-19 22:36] VITALS: BP 104/57; PULSE 78; RESP 14; O2SAT 96
== END 2023-05-19 22:40 | disposition home or self-care (01) ==
PROVIDERS: Emergency Provider Emergency Medicine; PCP Family Medicine
DX: H66.91 Otitis media, unspecified, right ear (principal); H92.01 Otalgia, right ear
CPT/HCPCS: 99283

== ENCOUNTER → 2023-05-31 15:18 | Outpatient (CLI) | payer MEDICARE, SELFPAY ==
[2023-05-31 16:15] LABS: BUN Creatinine Ratio 13.2 (6-22); Blood Urea Nitrogen 10 mg/dL (7-17); Calcium 8.9 mg/dL (8.4-10.2); Carbon Dioxide 25 mmol/L (22-32); Chloride 105 mmol/L (98-107); Estimated Glomerular Filt Rate > 60 mL/min (>60); Glucose 84 mg/dL (70-100); HEMOLYSIS < 15 (0-50); Lithium 0.8 mmol/L (0.6-1.2); Sodium 135 mmol/L (137-145)
== END ==
PROVIDERS: PCP Family Medicine; Referring Provider Psychiatry & Neurology Psychiatry; Visit Provider Psychiatry & Neurology Psychiatry
DX: F25.0 Schizoaffective disorder, bipolar type (principal)
CPT/HCPCS: 36415; 80048; 80178

== ENCOUNTER → 2023-10-19 09:05 | Outpatient (CLI) | payer MEDICARE, SELFPAY ==
[2023-10-19 20:20] LABS: Alanine Aminotransferase 25 IU/L (<35); Albumin Globulin Ratio 1.5 (1.0-2.8); Alkaline Phosphatase 64 U/L (38-126); Aspartate Aminotransferase 28 IU/L (14-36); BUN Creatinine Ratio 13.3 (6-22); Bilirubin Total 0.3 mg/dL (0.2-1.3); Blood Urea Nitrogen 12 mg/dL (7-17); Calcium 8.7 mg/dL (8.4-10.2); Carbon Dioxide 26 mmol/L (22-32); Chloride 108 mmol/L (98-107); Estimated Glomerular Filt Rate > 60 mL/min (>60); Globulin 2.7 g/dL (1.7-4.1); Glucose 94 mg/dL (70-100); HEMOLYSIS < 15 (0-50); Sodium 139 mmol/L (137-145); Total Protein 6.7 g/dL (6.3-8.2)
[2023-10-20 13:14] LABS: Lithium 0.5 mmol/L (0.6-1.2)
[2023-10-20 13:57] LABS: TSH w/ Reflex to FT4 1.77 uIU/mL (0.47-4.68)
== END ==
PROVIDERS: Family Provider Family Medicine; PCP Family Medicine; Referring Provider Psychiatry & Neurology Psychiatry; Visit Provider Registered Nurse
DX: Z31.430 Encounter of female for testing for genetic disease carrier status for procreative management (principal); F25.0 Schizoaffective disorder, bipolar type
CPT/HCPCS: 36415; 80053; 80178; 84443

== ENCOUNTER → 2023-10-25 10:18 | Outpatient (CLI) | payer MEDICARE, SELFPAY ==
[2023-10-25 11:51] LABS: Add Manual Diff / Slide Review NO; Basophils Absolute Auto 100 /uL (0-100); Eosinophils Absolute Auto 300 /uL (0-450); Eosinophils Percent Auto 3.7 % (2-4); Hematocrit 30.3 % (36-46); Hemoglobin 9.7 g/dL (12.0-16.0); Lymphocytes Absolute Auto 2600 /uL (1100-4500); Lymphocytes Percent Auto 35.5 % (25-40); Mean Corpuscular HGB Conc 32.1 % (30-36); Monocytes Absolute Auto 400 /uL (0-900); Neutrophils Absolute Auto 4000 /uL (1500-7000); Neutrophils Percent Auto 54.8 % (50-75); Platelet Count 391 X10^3/uL (150-400); Red Blood Cell Count 3.74 X10^6/uL (4.0-5.2); Red Cell Distribution Width 15.5 % (11.6-14.8); White Blood Cell Count 7.3 X10^3/uL (4.5-11.0)
[2023-10-26 07:38] LABS: RPR Screen Non Reactive (Non Reactive)
[2023-10-26 10:36] LABS: Var-Zoster Immunity Screen 471 index (Immune >165)
[2023-10-26 16:05] LABS: Hepatitis B Surface Antigen NEGATIVE s/c (NEGATIVE); Rubella Antibody IgG 28.1 IU/mL (>15)
[2023-10-26 16:22] LABS: HIV 1 & 2 Ab/Ag 4th Gen Combo NEGATIVE (NEGATIVE); Hep C Virus Ab w/Reflex Quant NEGATIVE s/c (NEGATIVE)
== END ==
PROVIDERS: Family Provider Family Medicine; PCP Family Medicine; Referring Provider Obstetrics & Gynecology; Visit Provider Obstetrics & Gynecology
DX: Z01.83 Encounter for blood typing (principal); Z01.84 Encounter for antibody response examination; Z11.3 Encounter for screening for infections with a predominantly sexual mode of transmission; Z13.21 Encounter for screening for nutritional disorder
CPT/HCPCS: 85025; 86592; 86644; 86645; 86762; 86787; 86803; 86850; 86900; 86901; 87340; 87389

== ENCOUNTER → 2023-10-26 10:11 | Outpatient (CLI) | payer MEDICARE, SELFPAY ==
[2023-10-26 12:30] LABS: Urine N gonorrhoeae NOT DETECTED
[2023-10-26 12:35] LABS: Urine Chlamydia NOT DETECTED
== END ==
PROVIDERS: Family Provider Family Medicine; PCP Family Medicine; Referring Provider Obstetrics & Gynecology; Visit Provider Obstetrics & Gynecology
DX: Z01.84 Encounter for antibody response examination (principal); Z11.3 Encounter for screening for infections with a predominantly sexual mode of transmission; Z13.21 Encounter for screening for nutritional disorder; Z01.83 Encounter for blood typing
CPT/HCPCS: 87491; 87591

== ENCOUNTER → 2023-11-02 16:57 | Outpatient (CLI) | payer MEDICARE, SELFPAY | PROVIDERS: Family Provider Family Medicine; PCP Family Medicine; Visit Provider Family Medicine | DX: Z11.3 Encounter for screening for infections with a predominantly sexual mode of transmission (principal) | CPT/HCPCS: 87210 ==

== ENCOUNTER → 2023-12-04 | Outpatient (CLI) | payer MEDICARE, SELFPAY ==
--- NOTE | 2023-12-04 12:42 | DI.US.S_ITS ---
PROCEDURE: US FOLLICLE TRANSVAGINAL COMPARISON: None. INDICATIONS: INFERTILITY MANAGEMENT FINDINGS: Uterus measures 4.4 x 3.6 x 3.8 cm. Endometrial complex measures 3.8 mm. Focus of heterogeneous echogenicity is present consistent with fibroid measuring 1.7 x 1.3 x 1.1 cm. Right ovary measures 2.5 x 1.6 x 1.0 cm with a volume of 2.1 cc. Left ovary measures 0.9 x 1.1 x 1.9 cm with volume 0.9 cc. Ovaries are poorly visualized. No definitively identified follicles. IMPRESSION: Poorly visualized ovaries without definitively identified follicles. Dictated by: Mandi Hawk M.D. on 12/05/2023 at 8:42 Approved by: Mandi Hawk M.D. on 12/05/2023 at 8:43
== END ==
PROVIDERS: Family Provider Family Medicine; PCP Family Medicine; Referring Provider Obstetrics & Gynecology; Visit Provider Obstetrics & Gynecology
DX: Z31.9 Encounter for procreative management, unspecified (principal)
CPT/HCPCS: 76830; 93975

== ENCOUNTER 2023-12-21 13:00 | Outpatient (RCR) | payer MEDICARE, SELFPAY ==
--- NOTE | 2023-11-09 17:57 | PT.OIE ---
Current Diagnoses Stiffness of unspecified hip, not elsewhere classified (11/09/23) Muscle weakness (generalized) (11/09/23) Unspecified dyspareunia (11/09/23) Past Medical History (Last Updated 11/05/23 @ 08:57 by Delisa Lockett MD) Advanced maternal age (AMA), 40 years or greater Dyslipidemia Narcolepsy (~1992) Overweight (BMI 25.0-29.9) PCOS (polycystic ovarian syndrome) (~1995) Sleep apnea (~2019) Weight gain due to medication Past Surgical History (Last Reviewed 05/20/23 @ 03:20 by Magnolia Leigh MD) Anesthesia History of colonoscopy (~11/2019) History of esophagogastroduodenoscopy (EGD) (~11/2019) History of surgical removal of pilonidal cyst (~11/2004) Visit Care Team Role Provider Type Delisa Lockett MD Family Provider Physician Primary Care Provider [place]ty[place] [facility] MANAGER ENDOSCOPY Address: [address] [place] [address], [phone] Fax: Email: [email or web address] Nola Varma MD Attending Provider Non-Staff Referring Provider Specialty[place] [facility] Address: [address] [place] [address], [phone] Fax: Email: Physical Therapy Initial Evaluation PT-OP-A Visit Information Start: 10/24/23 16:46 Freq: Status: Active Protocol: Document 11/09/23 13:49 LRN (Rec: 11/09/23 14:39 VINEET [id number]) Out-Patient Physical Therapy Visit Information Visit Information Visit Type Initial Evaluation Visit Start Time 13:49 Visit Stop Time 14:29 Visit Number 1 Evaluation Information Evaluation Date 11/09/23 Precautions Precautions Narcolepsy, with cataplexy, auditory hallucinations, Bipolar schizoaffective disorder. PT-OP-B Current Condition Start: 10/24/23 16:46 Freq: Status: Active Protocol: Document 11/09/23 13:49 LRN (Rec: 11/09/23 14:39 LRN [id number]) Current Condition History of Current Condition Onset Date 07/2023 Current Complaints Pain with insertion of speculum. History of Current Condition Pain with intercourse in 1999. Hasn't been able to get pelvic exam done because she is not able to tolerate insertion of speculum. Pt is wanting to get via artificial insemination, but must undergo a pelvic exam. Per intake form pt notes pain in posterior aspect of vagina. Treatment Goals Patient/Caregiver Goals Pt goal is: Be able to tolerate speculum insertion for HSG testing. Not have pelvic pain for artificial insemination. HEP. Personal Factors Other Personal Factors That May Effect Per pt intake form and Therapy/Recovery discussion: Narcolepsy, with cataplexy, auditory hallucinations, Bipolar schizoaffective disorder. PT-OP-C Subjective Start: 10/24/23 16:46 Freq: Status: Active Protocol: Document 11/09/23 13:49 LRN (Rec: 11/09/23 14:39 LRN [id number]) Patient Questionnaires Pelvic Pain and Urgency/Frequency Patient Symptom Scale Pelvic Pain Score 12 OP-PT Pain Assessment Pain Assessment Grid Paper Pain Assessment Grid Completed Yes Location Low Back Pain Location Details Low back Intensity 8 Description- Other 0/10 supine, 8/10 with use, doing sit up to get out of bed Pelvic Florr Pain Location Details Pelvic Floor pain internally in vaginal canal. Intensity 2 Scale Used Numeric (0 - 10) Description Burning,Sharp Description- Other Pain when something is inserted. Frequency When something inserted Pain Duration With insertion of speculum PT-OP-I Pelvic Floor Start: 10/24/23 16:46 Freq: Status: Active Protocol: Document 11/09/23 13:49 LRN (Rec: 11/09/23 14:39 LRN [id number]) Pelvic Floor Assessment Urine Pelvic Floor Surgery No Urinary Symptoms Hesitancy Other Urinary Symptoms Triggers if running water, hands in warm water, tub/ shower. Triggers used to start urination. Slow or difficulty starting urination. Strains to urinate Voiding Frequency 3/day Nocturia 1x Bowel Bowel Symptoms Constipation Other Bowel Symptoms Diarrhea Takes Imodium daily for diarrhea Bowel Movement Frequency 1x/day Tama Stool Chart Type 1-7 4 Tama Stool Chart Comments Type 5 if doesn't take Imodium . Pelvic Clock Pelvic Clock 12-3 Tenderness,Tightness Pelvic Clock 3-6 Tenderness,Tightness Pelvic Clock 6-9 Tenderness,Tightness Pelvic Clock 9-12 Tenderness,Tightness Pelvic Clock Other Greatest tenderness at 3-9 of PF clock. Contraction Ability Voluntary Contraction Weak Voluntary Relaxation Absent Manual Muscle Testing Left 2 Manual Muscle Testing Right 2 Manual Muscle Testing Anterior 2 Manual Muscle Testing Posterior 1 Muscle Endurance (Seconds) 8 Number of Quick Contractions In 10 2 Seconds Comments Pelvic Floor Comments Pt PF tissues very dry and lacking in color (light pink). Ridges and possible cysts palpated in vaginal tissues, 2 -9 of PF clock. PT-OP-J Posture/Palpation/Skin Start: 10/24/23 16:46 Freq: Status: Active Protocol: Document 11/09/23 13:49 LRN (Rec: 11/09/23 14:39 LRN [id number]) Posture Evaluation Position Standing Head/C-Spine Posture Forward Head L-Spine Posture Increased Lordosis Scapula Posture (R) Rotated Down,(R) Depressed Arm Posture (L) Internally Rotated,(R) Internally Rotated Pelvis Posture Anteriorly Tilted Weight Distribution Balanced Knee Posture (L) Genu Valgus,(R) Genu Valgus Comments Posture Comments Trunk leans to L, mild forward head, decreased thoracic curve, PT-OP-K Range of Motion Start: 10/24/23 16:46 Freq: Status: Active Protocol: Document 11/09/23 13:49 LRN (Rec: 11/09/23 14:39 LRN [id number]) Lumbar Spine Range of Motion Lumbar Spine Active Degrees Testing Position Standing Flexion 63 Extension 3 Rotation Left 3 Rotation Right 3 Lateral Flexion Left 10 Lateral Flexion Right 10 Hip Goniometric Range of Motion Hip Right Passive Testing Position Supine Abduction 40 Internal Rotation 30 External Rotation 65 Left Passive Testing Position Supine Abduction 35 Internal Rotation 30 External Rotation 55 PT-OP-M Strength Start: 10/24/23 16:46 Freq: Status: Active Protocol: Document 11/09/23 13:49 LRN (Rec: 11/09/23 14:39 LRN [id number]) Trunk Strength Trunk Manual Muscle Testing Core Stabilization Not able to stabilize core with MMT of LE's Hip Strength Hip Manual Muscle Testing Right Comments Strength is 5/5. Left Flexion (L2) 3 Fair Extension (S1) 3 Fair Abduction 3 Fair Adduction 4+ Good+ External Rotation 3 Fair Comments Strength is 5/5 except as indicated above. PT-OP-Q Treatments Start: 10/24/23 16:46 Freq: Status: Active Protocol: Document 11/09/23 13:49 LRN (Rec: 11/09/23 14:39 LR [id number]) Self-Care/Home Management Treatment Education Other Education Discussed results of evaluation, goals, and plan of care (POC) with pt, discussed attendance/cx/dns policy; pt agreeable to goals, attendance /cx/dns policy and POC. Issued, discussed, & reviewed Bladder Diary for pt to complete over the next 7 days. Explained how to fill out diary to note fluid/food intake and bladder/bowel function. Activities Self-Care/Home Management Activities Issued & reviewed HEP: Diaphragmatic Breathing (sup/ sit) and Issued bladder diary and bowel type chart. PT-OP-T Assessment and Plan Start: 10/24/23 16:46 Freq: Status: Active Protocol: Document 11/09/23 13:49 LRN (Rec: 11/09/23 14:39 LR [id number]) Physical Therapy Assessment Rehab Potential Rehabilitation Potential Excellent Evaluation Complexity Number of Personal Factors/Comorbidities 0 Impairments Impairments Activity Tolerance Goals Three Impairment L hip and core weakness Short Term Goal (STG) Pt will be able to perform a PF contraction w/o use of substitute muscles. STG Duration 4 wks-12/08/23 Mcc Goal (LTG) Pt will demonstrate improved L hip strength to improve symmetry of tone of PF and overall lessening of PF pain. LTG Duration 10 wks-01/19/24 Two Impairment PF pain at vaginal opening Impairment Quick Flicks in 10 secs - x2 Short Term Goal (STG) Pt will be educated in methods to quiet the autonomic nervous system to decrease resting tone after proper PF contraction ( PF contraction in the absence of abdominal/gluteal muscles). STG Duration 4 wks-12/08/23 Mcc Goal (LTG) Improve PF mobility at vaginal opening with pt able to tolerate speculum insertion for HSG testing and possible artificial insemination. LTG Duration 10 wks-01/19/24 One Impairment Lacks appropriate self care HEP Short Term Goal (STG) Pt will be able to demonstrated proper deep breathing method for PF relaxation. STG Duration 2 wks-11/24/23 Manager Entry Goal (LTG) Pt will be independent in self care HEP of PF stretches, LB/ hip stretches and strengthening ex's, core strengthening ex's. LTG Duration 10 wks-01/19/24 Assessment Summary Assessment Pt is a 48 yo female who presents with PF pain at opening of vagina due to PF tightness of superficial>deep muscles. Pt has protective response/guarding of PF with the thought of digital entry into vaginal canal, even if no pain was present. The pt reported recently being treated for a vaginal infection, but she displayed increased vaginal discharge. If not cleared on next appt pt will need assessment for vaginal infection. Her external PF skin appears dry and irritated and could benefit from a topical estrogen therapy. The pt's progression will most likely be hindered by her comorbidities and current L sided posterior and lateral trunk pain. The pt will benefit from skilled physical therapy for self PF stretching and relaxation training/ exercise (deep breathing and mindfulness), therapeutic ex of hip/LB stretching & strengthening, posture training, pt education in techniques for urinary and bowel voiding, HEP of PF contractions w/o substitute muscles, and proper body mechanics for ADLs. Physical Therapy Plan Frequency and Duration Frequency of Treatment 2x/Week Duration of treatment (weeks) 10 Plan of Care Start Date 11/09/23 Plan of Care End Date 01/19/24 Therapeutic Interventions Therapeutic Interventions Home Exercise Program,Joint Mobilizations,Manual Therapy, Self-Care/Home Management,Soft Tissue Mobilization, Therapeutic Activities, Therapeutic Exercises Modalities Biofeedback,Hot Packs Next Visit Focus/Plan Next Note Type Treatment Note Next Visit Plan Review bladder diary, pt education in proper Kegel without use of substitute muscles, proper deep breathing , and breathing with transfers and body mechanics with PF relaxation, methods to quiet the autonomic nervous system to decrease resting tone and after PF contraction. Core/L hip strengthening, improve mobility of L hip ER & luca IR ROM, SLR. Educate/discuss stool types, foods, water intake, educate & discuss Bowel care/massage, proper sit to stand, and moving in bed using breathwork for PF relaxation. POC: Pt education, Manual therapy. Biofeedback (when cleared of infection) with vaginal sensor if tolerated. Therapeutic Exercises, Therapeutic Activities, Neuromuscular Reeducation.
--- NOTE | 2023-11-09 18:57 | PT.OPPOC ---
Physical, Occupational & Speech Therapy At [facility] Current Diagnoses Stiffness of unspecified hip, not elsewhere classified (11/09/23) Muscle weakness (generalized) (11/09/23) Unspecified dyspareunia (11/09/23) Visit Care Team Role Provider Type Delisa Lockett MD Family Provider Physician Primary Care Provider Specialty: Family Practice TENNIS PROFESSIONAL Address: [address] [place] [address], [phone] Fax: Email: [email or web address] Nola Varma MD Attending Provider Non-Staff Referring Provider Specialty: Family Practice Address: [address] [place] [address], [phone] Fax: Email: Plan Of Care PT-OP-T Assessment and Plan Start: 10/24/23 16:46 Freq: Status: Active Protocol: Document 11/09/23 13:49 LRN (Rec: 11/09/23 14:39 LRN [id number]) Physical Therapy Assessment Rehab Potential Rehabilitation Potential Excellent Evaluation Complexity Number of Personal Factors/Comorbidities 0 Impairments Impairments Activity Tolerance Goals Three Impairment L hip and core weakness Short Term Goal (STG) Pt will be able to perform a PF contraction w/o use of substitute muscles. STG Duration 4 wks-12/08/23 Penitentiary Goal (LTG) Pt will demonstrate improved L hip strength to improve symmetry of tone of PF and overall lessening of PF pain. LTG Duration 10 wks-01/19/24 Two Impairment PF pain at vaginal opening Impairment Quick Flicks in 10 secs - x2 Short Term Goal (STG) Pt will be educated in methods to quiet the autonomic nervous system to decrease resting tone after proper PF contraction ( PF contraction in the absence of abdominal/gluteal muscles). STG Duration 4 wks-12/08/23 Video Production Intern Goal (LTG) Improve PF mobility at vaginal opening with pt able to tolerate speculum insertion for HSG testing and possible artificial insemination. LTG Duration 10 wks-01/19/24 One Impairment Lacks appropriate self care HEP Short Term Goal (STG) Pt will be able to demonstrated proper deep breathing method for PF relaxation. STG Duration 2 wks-11/24/23 Video Production Intern Goal (LTG) Pt will be independent in self care HEP of PF stretches, LB/ hip stretches and strengthening ex's, core strengthening ex's. LTG Duration 10 wks-01/19/24 Assessment Summary Assessment Pt is a 48 yo female who presents with PF pain at opening of vagina due to PF tightness of superficial>deep muscles. Pt has protective response/guarding of PF with the thought of digital entry into vaginal canal, even if no pain was present. The pt reported recently being treated for a vaginal infection, but she displayed increased vaginal discharge. If not cleared on next appt pt will need assessment for vaginal infection. Her external PF skin appears dry and irritated and could benefit from a topical estrogen therapy. The pt's progression will most likely be hindered by her comorbidities and current L sided posterior and lateral trunk pain. The pt will benefit from skilled physical therapy for self PF stretching and relaxation training/ exercise (deep breathing and mindfulness), therapeutic ex of hip/LB stretching & strengthening, posture training, pt education in techniques for urinary and bowel voiding, HEP of PF contractions w/o substitute muscles, and proper body mechanics for ADLs. Physical Therapy Plan Frequency and Duration Frequency of Treatment 2x/Week Duration of treatment (weeks) 10 Plan of Care Start Date 11/09/23 Plan of Care End Date 01/19/24 Therapeutic Interventions Therapeutic Interventions Home Exercise Program,Joint Mobilizations,Manual Therapy, Self-Care/Home Management,Soft Tissue Mobilization, Therapeutic Activities, Therapeutic Exercises Modalities Biofeedback,Hot Packs Next Visit Focus/Plan Next Note Type Treatment Note Next Visit Plan Review bladder diary, pt education in proper Kegel without use of substitute muscles, proper deep breathing , and breathing with transfers and body mechanics with PF relaxation, methods to quiet the autonomic nervous system to decrease resting tone and after PF contraction. Core/L hip strengthening, improve mobility of L hip ER & luca IR ROM, SLR. Educate/discuss stool types, foods, water intake, educate & discuss Bowel care/massage, proper sit to stand, and moving in bed using breathwork for PF relaxation. POC: Pt education, Manual therapy. Biofeedback (when cleared of infection) with vaginal sensor if tolerated. Therapeutic Exercises, Therapeutic Activities, Neuromuscular Reeducation. Plan of Care Dates Plan of Care Start Date 11/09/23 Plan of Care End Date 01/19/24 Electronically Signed by: Rachel Wilder, PT 11/10/23 7200 If you are in agreement with this Plan of Care, please return a signed and dated copy. I have reviewed this Plan of Care and certify that the skilled therapy services above are required to meet the patient?s needs. Physician Signature Date Printed Name and Credentials Clinical Instructor Signature Printed Name and Credentials
--- NOTE | 2023-11-13 17:28 | PT.OTN ---
Current Diagnoses Stiffness of unspecified hip, not elsewhere classified (11/13/23) Muscle weakness (generalized) (11/13/23) Unspecified dyspareunia (11/13/23) Physical Therapy Treatment Note PT-OP-A Visit Information Start: 10/24/23 16:46 Freq: Status: Active Protocol: Document 11/13/23 09:53 LRN (Rec: 11/13/23 10:37 LRN [id number]) Out-Patient Physical Therapy Visit Information Visit Information Visit Type Treatment Note Visit Start Time 09:53 Visit Stop Time 10:37 Visit Number 2 Evaluation Information Evaluation Date 11/09/23 Precautions Precautions Narcolepsy, with cataplexy, auditory hallucinations, Bipolar schizoaffective disorder. PT-OP-B Current Condition Start: 10/24/23 16:46 Freq: Status: Active Protocol: Document 11/09/23 13:49 LRN (Rec: 11/09/23 14:39 LRN [id number]) Current Condition History of Current Condition Onset Date 07/2023 Current Complaints Pain with insertion of speculum. History of Current Condition Pain with intercourse in 1999. Hasn't been able to get pelvic exam done because she is not able to tolerate insertion of speculum. Pt is wanting to get via artificial insemination, but must undergo a pelvic exam. Per intake form pt notes pain in posterior aspect of vagina. Treatment Goals Patient/Caregiver Goals Pt goal is: Be able to tolerate speculum insertion for HSG testing. Not have pelvic pain for artificial insemination. HEP. Personal Factors Other Personal Factors That May Effect Per pt intake form and Therapy/Recovery discussion: Narcolepsy, with cataplexy, auditory hallucinations, Bipolar schizoaffective disorder. PT-OP-C Subjective Start: 10/24/23 16:46 Freq: Status: Active Protocol: Document 11/13/23 09:53 LRN (Rec: 11/13/23 10:37 LRN [id number]) OP-PT Subjective Patient Comments Patient Comments Did her bladder diary. Was having a lot of BM's so cut her Immodium capsules in half and now having BM 1-2/day. Breathing is relaxing. PT-OP-I Pelvic Floor Start: 10/24/23 16:46 Freq: Status: Active Protocol: Document 11/09/23 13:49 LRN (Rec: 11/09/23 14:39 LRN [id number]) Pelvic Floor Assessment Urine Pelvic Floor Surgery No Urinary Symptoms Hesitancy Other Urinary Symptoms Triggers if running water, hands in warm water, tub/ shower. Triggers used to start urination. Slow or difficulty starting urination. Strains to urinate Voiding Frequency 3/day Nocturia 1x Bowel Bowel Symptoms Constipation Other Bowel Symptoms Diarrhea Takes Imodium daily for diarrhea Bowel Movement Frequency 1x/day [place] Stool Chart Type 1-7 4 [place] Stool Chart Comments Type 5 if doesn't take Imodium . Pelvic Clock Pelvic Clock 12-3 Tenderness,Tightness Pelvic Clock 3-6 Tenderness,Tightness Pelvic Clock 6-9 Tenderness,Tightness Pelvic Clock 9-12 Tenderness,Tightness Pelvic Clock Other Greatest tenderness at 3-9 of PF clock. Contraction Ability Voluntary Contraction Weak Voluntary Relaxation Absent Manual Muscle Testing Left 2 Manual Muscle Testing Right 2 Manual Muscle Testing Anterior 2 Manual Muscle Testing Posterior 1 Muscle Endurance (Seconds) 8 Number of Quick Contractions In 10 2 Seconds Comments Pelvic Floor Comments Pt PF tissues very dry and lacking in color (light pink). Ridges and possible cysts palpated in vaginal tissues, 2 -9 of PF clock. PT-OP-J Posture/Palpation/Skin Start: 10/24/23 16:46 Freq: Status: Active Protocol: Document 11/09/23 13:49 LRN (Rec: 11/09/23 14:39 LRN [id number]) Posture Evaluation Position Standing Head/C-Spine Posture Forward Head L-Spine Posture Increased Lordosis Scapula Posture (R) Rotated Down,(R) Depressed Arm Posture (L) Internally Rotated,(R) Internally Rotated Pelvis Posture Anteriorly Tilted Weight Distribution Balanced Knee Posture (L) Genu Valgus,(R) Genu Valgus Comments Posture Comments Trunk leans to L, mild forward head, decreased thoracic curve, PT-OP-K Range of Motion Start: 10/24/23 16:46 Freq: Status: Active Protocol: Document 11/09/23 13:49 LRN (Rec: 11/09/23 14:39 LRN [id number]) Lumbar Spine Range of Motion Lumbar Spine Active Degrees Testing Position Standing Flexion 63 Extension 3 Rotation Left 3 Rotation Right 3 Lateral Flexion Left 10 Lateral Flexion Right 10 Hip Goniometric Range of Motion Hip Right Passive Testing Position Supine Abduction 40 Internal Rotation 30 External Rotation 65 Left Passive Testing Position Supine Abduction 35 Internal Rotation 30 External Rotation 55 PT-OP-M Strength Start: 10/24/23 16:46 Freq: Status: Active Protocol: Document 11/09/23 13:49 LRN (Rec: 11/09/23 14:39 LRN [id number]) Trunk Strength Trunk Manual Muscle Testing Core Stabilization Not able to stabilize core with MMT of LE's Hip Strength Hip Manual Muscle Testing Right Comments Strength is 5/5. Left Flexion (L2) 3 Fair Extension (S1) 3 Fair Abduction 3 Fair Adduction 4+ Good+ External Rotation 3 Fair Comments Strength is 5/5 except as indicated above. PT-OP-Q Treatments Start: 10/24/23 16:46 Freq: Status: Active Protocol: Document 11/13/23 09:53 LRN (Rec: 11/13/23 10:37 LRN [id number]) Therapeutic Exercises Supine Exercises Piriformis stretch Supine Exercise Name Ankle over knee>KTC and Knee/ ankle to opp shdr Side bilateral Reps/Minutes 6' Deep Breathing Supine Exercise Name Deep Breathing trainin hand on chest/1 hand on abdomen Reps/Minutes 7' Comments Cued to push into abdominal fingers w/inhale& draw in w/ exhale, chest still Sitting Exercises Deep Breathing Sitting Exercise Name Deep Breathing Comments Cued to breathe in thru abdomen/hips and keep chest still Neuro Re-Education Treatment Coordination Activities Breathing w/PF relaxation Details Coordinating Breathing w/ inhale PF stretch & exhale PF relax Comments Much time taken for determining best set up and max position for pt relaxation of PF with hip AD stretch, and for phy. cuing for PF stretch/relax. Self-Care/Home Management Treatment Education Other Education Reviewed Bladder dairy and discussed fluid/food intake, bowel movements (type, times/ day), & food vs fluid intake. Discussed pt's planned nutrition consult and agreed that it was recommended. Activities Self-Care/Home Management Activities HEP issued & reviewed: Piriformis stretch (ankle over knee>KTC & knee to opp shdr, lat hip stretch, sitting hip ER stretch) PT-OP-T Assessment and Plan Start: 10/24/23 16:46 Freq: Status: Active Protocol: Document 11/13/23 09:53 LRN (Rec: 11/13/23 10:37 LRN [id number]) Physical Therapy Assessment Goals Three Impairment L hip and core weakness Short Term Goal (STG) Pt will be able to perform a PF contraction w/o use of substitute muscles. STG Duration 4 wks-12/08/23 Optician Manager Goal (LTG) Pt will demonstrate improved L hip strength to improve symmetry of tone of PF and overall lessening of PF pain. LTG Duration 10 wks-01/19/24 Two Impairment PF pain at vaginal opening Impairment Quick Flicks in 10 secs - x2 Short Term Goal (STG) Pt will be educated in methods to quiet the autonomic nervous system to decrease resting tone after proper PF contraction ( PF contraction in the absence of abdominal/gluteal muscles). STG Duration 4 wks-12/08/23 Residential Goal (LTG) Improve PF mobility at vaginal opening with pt able to tolerate speculum insertion for HSG testing and possible artificial insemination. LTG Duration 10 wks-01/19/24 One Impairment Lacks appropriate self care HEP Short Term Goal (STG) Pt will be able to demonstrated proper deep breathing method for PF relaxation. STG Duration 2 wks-11/24/23 Residential Goal (LTG) Pt will be independent in self care HEP of PF stretches, LB/ hip stretches and strengthening ex's, core strengthening ex's. LTG Duration 10 wks-01/19/24 Assessment Summary Assessment 48 yo female who presents with PF pain at opening of vagina due to PF tightness of superficial>deep muscles. Pt has protective response/ guarding of PF and recently was treated for vaginal infection. Her external PF skin appears dry and irritated and could benefit from a topical estrogen therapy. She is hindered by her comorbidities and L sided posterior and lateral trunk pain. Today, still not sure if cleared from infection due to increased vaginal discharge last checked; therefore will need assessment for vaginal infection before internal work performed. Per bladder diary review, fluid intake is much greater than her food intake, which may be a reason for her loose stools. She lacks healthy fiberous foods and tends to eat a lot of sugary foods and drinks, and bulk foods high in carbohydrates ( breads, rice cereal, fries). She states she is supposed to have a dietary consult which would be beneficial to helping her obtain firmer stools. Her loose stools does not seem to be associated to her PF tightness. Physical Therapy Plan Frequency and Duration Frequency of Treatment 2x/Week Duration of treatment (weeks) 10 Plan of Care Start Date 11/09/23 Plan of Care End Date 01/19/24 Next Visit Focus/Plan Next Note Type Treatment Note Next Visit Plan When cleared of infection, self care PF stretching with wand. Pt education in: proper Kegel without use of substitute muscles, PF relaxation with breathing during transfers and body mechanics, proper sit to stand , and moving in bed using breathwork for PF relaxation, methods to quiet the autonomic nervous system to decrease PF resting tone and tone after PF contraction. Cont trng for proper deep breathing. Core/L hip strengthening, improve mobility of L hip ER & luca IR ROM, SLR. POC: Pt education, Manual therapy. Biofeedback (when cleared of infection) with vaginal sensor if tolerated. Therapeutic Exercises, Therapeutic Activities, Neuromuscular Reeducation.
--- NOTE | 2023-11-16 15:54 | PT.OTN ---
Current Diagnoses Stiffness of unspecified hip, not elsewhere classified (11/16/23) Muscle weakness (generalized) (11/16/23) Unspecified dyspareunia (11/16/23) Physical Therapy Treatment Note PT-OP-A Visit Information Start: 10/24/23 16:46 Freq: Status: Active Protocol: Document 11/16/23 13:52 LRN (Rec: 11/16/23 14:36 LRN [id number]) Out-Patient Physical Therapy Visit Information Visit Information Visit Type Treatment Note Visit Start Time 13:52 Visit Stop Time 14:31 Visit Number 3 Evaluation Information Evaluation Date 11/09/23 PT-OP-B Current Condition Start: 10/24/23 16:46 Freq: Status: Active Protocol: Document 11/09/23 13:49 LRN (Rec: 11/09/23 14:39 LRN [id number]) Current Condition History of Current Condition Onset Date 07/2023 Current Complaints Pain with insertion of speculum. History of Current Condition Pain with intercourse in 1999. Hasn't been able to get pelvic exam done because she is not able to tolerate insertion of speculum. Pt is wanting to get via artificial insemination, but must undergo a pelvic exam. Per intake form pt notes pain in posterior aspect of vagina. Treatment Goals Patient/Caregiver Goals Pt goal is: Be able to tolerate speculum insertion for HSG testing. Not have pelvic pain for artificial insemination. HEP. Personal Factors Other Personal Factors That May Effect Per pt intake form and Therapy/Recovery discussion: Narcolepsy, with cataplexy, auditory hallucinations, Bipolar schizoaffective disorder. PT-OP-C Subjective Start: 10/24/23 16:46 Freq: Status: Active Protocol: Document 11/13/23 09:53 LRN (Rec: 11/13/23 10:37 LRN [id number]) OP-PT Subjective Patient Comments Patient Comments Did her bladder diary. Was having a lot of BM's so cut her Immodium capsules in half and now having BM 1-2/day. Breathing is relaxing. PT-OP-I Pelvic Floor Start: 10/24/23 16:46 Freq: Status: Active Protocol: Document 11/09/23 13:49 LRN (Rec: 11/09/23 14:39 LRN [id number]) Pelvic Floor Assessment Urine Pelvic Floor Surgery No Urinary Symptoms Hesitancy Other Urinary Symptoms Triggers if running water, hands in warm water, tub/ shower. Triggers used to start urination. Slow or difficulty starting urination. Strains to urinate Voiding Frequency 3/day Nocturia 1x Bowel Bowel Symptoms Constipation Other Bowel Symptoms Diarrhea Takes Imodium daily for diarrhea Bowel Movement Frequency 1x/day [place] Stool Chart Type 1-7 4 [place] Stool Chart Comments Type 5 if doesn't take Imodium . Pelvic Clock Pelvic Clock 12-3 Tenderness,Tightness Pelvic Clock 3-6 Tenderness,Tightness Pelvic Clock 6-9 Tenderness,Tightness Pelvic Clock 9-12 Tenderness,Tightness Pelvic Clock Other Greatest tenderness at 3-9 of PF clock. Contraction Ability Voluntary Contraction Weak Voluntary Relaxation Absent Manual Muscle Testing Left 2 Manual Muscle Testing Right 2 Manual Muscle Testing Anterior 2 Manual Muscle Testing Posterior 1 Muscle Endurance (Seconds) 8 Number of Quick Contractions In 10 2 Seconds Comments Pelvic Floor Comments Pt PF tissues very dry and lacking in color (light pink). Ridges and possible cysts palpated in vaginal tissues, 2 -9 of PF clock. PT-OP-J Posture/Palpation/Skin Start: 10/24/23 16:46 Freq: Status: Active Protocol: Document 11/09/23 13:49 LRN (Rec: 11/09/23 14:39 LRN [id number]) Posture Evaluation Position Standing Head/C-Spine Posture Forward Head L-Spine Posture Increased Lordosis Scapula Posture (R) Rotated Down,(R) Depressed Arm Posture (L) Internally Rotated,(R) Internally Rotated Pelvis Posture Anteriorly Tilted Weight Distribution Balanced Knee Posture (L) Genu Valgus,(R) Genu Valgus Comments Posture Comments Trunk leans to L, mild forward head, decreased thoracic curve, PT-OP-K Range of Motion Start: 10/24/23 16:46 Freq: Status: Active Protocol: Document 11/09/23 13:49 LRN (Rec: 11/09/23 14:39 LRN [id number]) Lumbar Spine Range of Motion Lumbar Spine Active Degrees Testing Position Standing Flexion 63 Extension 3 Rotation Left 3 Rotation Right 3 Lateral Flexion Left 10 Lateral Flexion Right 10 Hip Goniometric Range of Motion Hip Right Passive Testing Position Supine Abduction 40 Internal Rotation 30 External Rotation 65 Left Passive Testing Position Supine Abduction 35 Internal Rotation 30 External Rotation 55 PT-OP-M Strength Start: 10/24/23 16:46 Freq: Status: Active Protocol: Document 11/09/23 13:49 LRN (Rec: 11/09/23 14:39 LRN [id number]) Trunk Strength Trunk Manual Muscle Testing Core Stabilization Not able to stabilize core with MMT of LE's Hip Strength Hip Manual Muscle Testing Right Comments Strength is 5/5. Left Flexion (L2) 3 Fair Extension (S1) 3 Fair Abduction 3 Fair Adduction 4+ Good+ External Rotation 3 Fair Comments Strength is 5/5 except as indicated above. PT-OP-Q Treatments Start: 10/24/23 16:46 Freq: Status: Active Protocol: Document 11/16/23 13:52 LRN (Rec: 11/16/23 14:36 LRN [id number]) Therapeutic Exercises Supine Exercises PF relaxation p/Kegel Supine Exercise Name PF relaxation awareness training after Kegel. Reps/Minutes 2' Deep Breathing Supine Exercise Name Deep Breathing trainin hand on chest/1 hand on abdomen Reps/Minutes 7' Comments Cued to push into abdominal fingers w/inhale& draw in w/ exhale, chest still Manual Therapy Treatment Soft Tissue Mobilization PF stretching Body Location Superficial ms stretching PF clock 1-11. Mobilization Type Sustained Pressure Intensity/Depth Superficial Body Position [place] Neuro Re-Education Treatment Coordination Activities Breathing w/transfers Details Training coordinating breathing with transfers. Reps/Duration 8' PT-OP-T Assessment and Plan Start: 10/24/23 16:46 Freq: Status: Active Protocol: Document 11/16/23 13:52 LRN (Rec: 11/16/23 14:36 LRN [id number]) Physical Therapy Assessment Goals Three Impairment L hip and core weakness Short Term Goal (STG) Pt will be able to perform a PF contraction w/o use of substitute muscles. 11/16/23: Initiated trng for PF contraction w/o use of substitute ms. STG Duration 4 wks-12/08/23 progressed Freezer Person Goal (LTG) Pt will demonstrate improved L hip strength to improve symmetry of tone of PF and overall lessening of PF pain. LTG Duration 10 wks-01/19/24 Two Impairment PF pain at vaginal opening Impairment Quick Flicks in 10 secs - x2 Short Term Goal (STG) Pt will be educated in methods to quiet the autonomic nervous system to decrease resting tone after proper PF contraction (PF contraction in the absence of abdominal/ gluteal muscles). 11/16/23: Awareness trng of PF relaxation with exhale or after contraction STG Duration 4 wks-12/08/23 progressed Senior Living Goal (LTG) Improve PF mobility at vaginal opening with pt able to tolerate speculum insertion for HSG testing and possible artificial insemination. LTG Duration 10 wks-01/19/24 One Impairment Lacks appropriate self care HEP Short Term Goal (STG) Pt will be able to demonstrated proper deep breathing method for PF relaxation. STG Duration 2 wks-11/24/23 (11/16/23: MET GOAL) Senior Living Goal (LTG) Pt will be independent in self care HEP of PF stretches, LB/ hip stretches and strengthening ex's, core strengthening ex's. 11/16/23: HEP: Modified Happy Baby to progress to Happy Baby Pose & Child's pose LTG Duration 10 wks-01/19/24 progressed 11/16/23 Assessment Summary Assessment 48 yo female with PF tightness /pain at opening of vagina ( not able to get speculum inserted) due to tightness of superficial>deep muscles. Today she was very sensitive and tender at the initial opening, but responded well to trP treatment with slow response at first due to lingering c/o burning pain. Pt demonstrated improved ability to perform deep breathing, with normal mechanics and coordination of abdominal mvmt with breathing. Not sure if pt has infection of vaginal canal; therefore pt will need clearance by local medical provider before use of wand for self stretching. Physical Therapy Plan Frequency and Duration Frequency of Treatment 2x/Week Duration of treatment (weeks) 10 Plan of Care Start Date 11/09/23 Plan of Care End Date 01/19/24 Next Visit Focus/Plan Next Note Type Treatment Note Next Visit Plan When cleared of infection, self care PF stretching with wand. Pt to order own progressive dilators when appropriate. Next: Trng in proper Kegel without use of substitute muscles, PF relaxation with breathing during transfers and body mechanics, proper sit to stand, and moving in bed using breathwork for PF relaxation, methods to quiet the autonomic nervous system to decrease PF resting tone and tone after PF contraction. Core/L hip strengthening, improve mobility of L hip ER & luca IR ROM, SLR. POC: Pt education, Manual therapy. Biofeedback (when cleared of infection) with vaginal sensor if tolerated. Therapeutic Exercises, Therapeutic Activities, Neuromuscular Reeducation.
--- NOTE | 2023-11-16 15:58 | PT.OTN ---
Current Diagnoses Stiffness of unspecified hip, not elsewhere classified (11/16/23) Muscle weakness (generalized) (11/16/23) Unspecified dyspareunia (11/16/23) Physical Therapy Treatment Note PT-OP-A Visit Information Start: 10/24/23 16:46 Freq: Status: Active Protocol: Document 11/16/23 13:52 LRN (Rec: 11/16/23 14:36 LRN [id number]) Out-Patient Physical Therapy Visit Information Visit Information Visit Type Treatment Note Visit Start Time 13:52 Visit Stop Time 14:31 Visit Number 3 Evaluation Information Evaluation Date 11/09/23 PT-OP-B Current Condition Start: 10/24/23 16:46 Freq: Status: Active Protocol: Document 11/09/23 13:49 LRN (Rec: 11/09/23 14:39 LRN [id number]) Current Condition History of Current Condition Onset Date 07/2023 Current Complaints Pain with insertion of speculum. History of Current Condition Pain with intercourse in 1999. Hasn't been able to get pelvic exam done because she is not able to tolerate insertion of speculum. Pt is wanting to get via artificial insemination, but must undergo a pelvic exam. Per intake form pt notes pain in posterior aspect of vagina. Treatment Goals Patient/Caregiver Goals Pt goal is: Be able to tolerate speculum insertion for HSG testing. Not have pelvic pain for artificial insemination. HEP. Personal Factors Other Personal Factors That May Effect Per pt intake form and Therapy/Recovery discussion: Narcolepsy, with cataplexy, auditory hallucinations, Bipolar schizoaffective disorder. PT-OP-C Subjective Start: 10/24/23 16:46 Freq: Status: Active Protocol: Document 11/13/23 09:53 LRN (Rec: 11/13/23 10:37 LRN [id number]) OP-PT Subjective Patient Comments Patient Comments Did her bladder diary. Was having a lot of BM's so cut her Immodium capsules in half and now having BM 1-2/day. Breathing is relaxing. PT-OP-I Pelvic Floor Start: 10/24/23 16:46 Freq: Status: Active Protocol: Document 11/09/23 13:49 LRN (Rec: 11/09/23 14:39 LRN [id number]) Pelvic Floor Assessment Urine Pelvic Floor Surgery No Urinary Symptoms Hesitancy Other Urinary Symptoms Triggers if running water, hands in warm water, tub/ shower. Triggers used to start urination. Slow or difficulty starting urination. Strains to urinate Voiding Frequency 3/day Nocturia 1x Bowel Bowel Symptoms Constipation Other Bowel Symptoms Diarrhea Takes Imodium daily for diarrhea Bowel Movement Frequency 1x/day [place] Stool Chart Type 1-7 4 [place] Stool Chart Comments Type 5 if doesn't take Imodium . Pelvic Clock Pelvic Clock 12-3 Tenderness,Tightness Pelvic Clock 3-6 Tenderness,Tightness Pelvic Clock 6-9 Tenderness,Tightness Pelvic Clock 9-12 Tenderness,Tightness Pelvic Clock Other Greatest tenderness at 3-9 of PF clock. Contraction Ability Voluntary Contraction Weak Voluntary Relaxation Absent Manual Muscle Testing Left 2 Manual Muscle Testing Right 2 Manual Muscle Testing Anterior 2 Manual Muscle Testing Posterior 1 Muscle Endurance (Seconds) 8 Number of Quick Contractions In 10 2 Seconds Comments Pelvic Floor Comments Pt PF tissues very dry and lacking in color (light pink). Ridges and possible cysts palpated in vaginal tissues, 2 -9 of PF clock. PT-OP-J Posture/Palpation/Skin Start: 10/24/23 16:46 Freq: Status: Active Protocol: Document 11/09/23 13:49 LRN (Rec: 11/09/23 14:39 LRN [id number]) Posture Evaluation Position Standing Head/C-Spine Posture Forward Head L-Spine Posture Increased Lordosis Scapula Posture (R) Rotated Down,(R) Depressed Arm Posture (L) Internally Rotated,(R) Internally Rotated Pelvis Posture Anteriorly Tilted Weight Distribution Balanced Knee Posture (L) Genu Valgus,(R) Genu Valgus Comments Posture Comments Trunk leans to L, mild forward head, decreased thoracic curve, PT-OP-K Range of Motion Start: 10/24/23 16:46 Freq: Status: Active Protocol: Document 11/09/23 13:49 LRN (Rec: 11/09/23 14:39 LRN [id number]) Lumbar Spine Range of Motion Lumbar Spine Active Degrees Testing Position Standing Flexion 63 Extension 3 Rotation Left 3 Rotation Right 3 Lateral Flexion Left 10 Lateral Flexion Right 10 Hip Goniometric Range of Motion Hip Right Passive Testing Position Supine Abduction 40 Internal Rotation 30 External Rotation 65 Left Passive Testing Position Supine Abduction 35 Internal Rotation 30 External Rotation 55 PT-OP-M Strength Start: 10/24/23 16:46 Freq: Status: Active Protocol: Document 11/09/23 13:49 LRN (Rec: 11/09/23 14:39 LRN [id number]) Trunk Strength Trunk Manual Muscle Testing Core Stabilization Not able to stabilize core with MMT of LE's Hip Strength Hip Manual Muscle Testing Right Comments Strength is 5/5. Left Flexion (L2) 3 Fair Extension (S1) 3 Fair Abduction 3 Fair Adduction 4+ Good+ External Rotation 3 Fair Comments Strength is 5/5 except as indicated above. PT-OP-Q Treatments Start: 10/24/23 16:46 Freq: Status: Active Protocol: Document 11/16/23 13:52 LRN (Rec: 11/16/23 14:36 LRN [id number]) Therapeutic Exercises Supine Exercises PF relaxation p/Kegel Supine Exercise Name PF relaxation awareness training after Kegel. Reps/Minutes 2' Deep Breathing Supine Exercise Name Deep Breathing trainin hand on chest/1 hand on abdomen Reps/Minutes 7' Comments Cued to push into abdominal fingers w/inhale& draw in w/ exhale, chest still Manual Therapy Treatment Soft Tissue Mobilization PF stretching Body Location Superficial ms stretching PF clock 1-11. Mobilization Type Sustained Pressure Intensity/Depth Superficial Body Position Hooklie Neuro Re-Education Treatment Coordination Activities Breathing w/transfers Details Training coordinating breathing with transfers. Reps/Duration 8' Self-Care/Home Management Treatment Activities Self-Care/Home Management Activities Issued & reviewed HEP: Happy Baby Pose & Child's Pose PT-OP-T Assessment and Plan Start: 10/24/23 16:46 Freq: Status: Active Protocol: Document 11/16/23 13:52 LRN (Rec: 11/16/23 14:36 LRN [id number]) Physical Therapy Assessment Goals Three Impairment L hip and core weakness Short Term Goal (STG) Pt will be able to perform a PF contraction w/o use of substitute muscles. 11/16/23: Initiated trng for PF contraction w/o use of substitute ms. STG Duration 4 wks-12/08/23 progressed Senior Care Goal (LTG) Pt will demonstrate improved L hip strength to improve symmetry of tone of PF and overall lessening of PF pain. LTG Duration 10 wks-01/19/24 Two Impairment PF pain at vaginal opening Impairment Quick Flicks in 10 secs - x2 Short Term Goal (STG) Pt will be educated in methods to quiet the autonomic nervous system to decrease resting tone after proper PF contraction (PF contraction in the absence of abdominal/ gluteal muscles). 11/16/23: Awareness trng of PF relaxation with exhale or after contraction STG Duration 4 wks-12/08/23 progressed Subscription Agent Goal (LTG) Improve PF mobility at vaginal opening with pt able to tolerate speculum insertion for HSG testing and possible artificial insemination. LTG Duration 10 wks-01/19/24 One Impairment Lacks appropriate self care HEP Short Term Goal (STG) Pt will be able to demonstrated proper deep breathing method for PF relaxation. STG Duration 2 wks-11/24/23 (11/16/23: MET GOAL) Subscription Agent Goal (LTG) Pt will be independent in self care HEP of PF stretches, LB/ hip stretches and strengthening ex's, core strengthening ex's. 11/16/23: HEP: Modified Happy Baby to progress to Happy Baby Pose & Child's pose LTG Duration 10 wks-01/19/24 progressed 11/16/23 Assessment Summary Assessment 48 yo female with PF tightness /pain at opening of vagina ( not able to get speculum inserted) due to tightness of superficial>deep muscles. Today she was very sensitive and tender at the initial opening, but responded well to trP treatment with slow response at first due to lingering c/o burning pain. Pt demonstrated improved ability to perform deep breathing, with normal mechanics and coordination of abdominal mvmt with breathing. Not sure if pt has infection of vaginal canal; therefore pt will need clearance by local medical provider before use of wand for self stretching. Physical Therapy Plan Frequency and Duration Frequency of Treatment 2x/Week Duration of treatment (weeks) 10 Plan of Care Start Date 11/09/23 Plan of Care End Date 01/19/24 Next Visit Focus/Plan Next Note Type Treatment Note Next Visit Plan When cleared of infection, self care PF stretching with wand. Pt to order own progressive dilators when appropriate. Next: Trng in proper Kegel without use of substitute muscles, PF relaxation with breathing during transfers and body mechanics, proper sit to stand, and moving in bed using breathwork for PF relaxation, methods to quiet the autonomic nervous system to decrease PF resting tone and tone after PF contraction. Core/L hip strengthening, improve mobility of L hip ER & luca IR ROM, SLR. POC: Pt education, Manual therapy. Biofeedback (when cleared of infection) with vaginal sensor if tolerated. Therapeutic Exercises, Therapeutic Activities, Neuromuscular Reeducation.
--- NOTE | 2023-11-23 16:17 | PT.OTN ---
Current Diagnoses Stiffness of unspecified hip, not elsewhere classified (11/23/23) Muscle weakness (generalized) (11/23/23) Unspecified dyspareunia (11/23/23) Physical Therapy Treatment Note PT-OP-A Visit Information Start: 10/24/23 16:46 Freq: Status: Active Protocol: Document 11/23/23 13:01 LRN (Rec: 11/23/23 13:39 LRN [id number]) Out-Patient Physical Therapy Visit Information Visit Information Visit Type Treatment Note Visit Start Time 13:52 Visit Stop Time 14:31 Visit Number 3 Evaluation Information Evaluation Date 11/09/23 Precautions Precautions Narcolepsy, with cataplexy, auditory hallucinations, Bipolar schizoaffective disorder. PT-OP-B Current Condition Start: 10/24/23 16:46 Freq: Status: Active Protocol: Document 11/09/23 13:49 LRN (Rec: 11/09/23 14:39 LRN [id number]) Current Condition History of Current Condition Onset Date 07/2023 Current Complaints Pain with insertion of speculum. History of Current Condition Pain with intercourse in 1999. Hasn't been able to get pelvic exam done because she is not able to tolerate insertion of speculum. Pt is wanting to get via artificial insemination, but must undergo a pelvic exam. Per intake form pt notes pain in posterior aspect of vagina. Treatment Goals Patient/Caregiver Goals Pt goal is: Be able to tolerate speculum insertion for HSG testing. Not have pelvic pain for artificial insemination. HEP. Personal Factors Other Personal Factors That May Effect Per pt intake form and Therapy/Recovery discussion: Narcolepsy, with cataplexy, auditory hallucinations, Bipolar schizoaffective disorder. PT-OP-C Subjective Start: 10/24/23 16:46 Freq: Status: Active Protocol: Document 11/23/23 13:01 LRN (Rec: 11/23/23 13:39 LRN [id number]) OP-PT Subjective Patient Comments Patient Comments Using breathing breathing more and has found it helpful with voiding to get last bit of urine out. Has an appt in a couple of weeks to check for vaginal infection. PT-OP-I Pelvic Floor Start: 10/24/23 16:46 Freq: Status: Active Protocol: Document 11/09/23 13:49 LRN (Rec: 11/09/23 14:39 LRN [id number]) Pelvic Floor Assessment Urine Pelvic Floor Surgery No Urinary Symptoms Hesitancy Other Urinary Symptoms Triggers if running water, hands in warm water, tub/ shower. Triggers used to start urination. Slow or difficulty starting urination. Strains to urinate Voiding Frequency 3/day Nocturia 1x Bowel Bowel Symptoms Constipation Other Bowel Symptoms Diarrhea Takes Imodium daily for diarrhea Bowel Movement Frequency 1x/day [place] Stool Chart Type 1-7 4 [place] Stool Chart Comments Type 5 if doesn't take Imodium . Pelvic Clock Pelvic Clock 12-3 Tenderness,Tightness Pelvic Clock 3-6 Tenderness,Tightness Pelvic Clock 6-9 Tenderness,Tightness Pelvic Clock 9-12 Tenderness,Tightness Pelvic Clock Other Greatest tenderness at 3-9 of PF clock. Contraction Ability Voluntary Contraction Weak Voluntary Relaxation Absent Manual Muscle Testing Left 2 Manual Muscle Testing Right 2 Manual Muscle Testing Anterior 2 Manual Muscle Testing Posterior 1 Muscle Endurance (Seconds) 8 Number of Quick Contractions In 10 2 Seconds Comments Pelvic Floor Comments Pt PF tissues very dry and lacking in color (light pink). Ridges and possible cysts palpated in vaginal tissues, 2 -9 of PF clock. PT-OP-J Posture/Palpation/Skin Start: 10/24/23 16:46 Freq: Status: Active Protocol: Document 11/09/23 13:49 LRN (Rec: 11/09/23 14:39 LRN [id number]) Posture Evaluation Position Standing Head/C-Spine Posture Forward Head L-Spine Posture Increased Lordosis Scapula Posture (R) Rotated Down,(R) Depressed Arm Posture (L) Internally Rotated,(R) Internally Rotated Pelvis Posture Anteriorly Tilted Weight Distribution Balanced Knee Posture (L) Genu Valgus,(R) Genu Valgus Comments Posture Comments Trunk leans to L, mild forward head, decreased thoracic curve, PT-OP-K Range of Motion Start: 10/24/23 16:46 Freq: Status: Active Protocol: Document 11/09/23 13:49 LRN (Rec: 11/09/23 14:39 LRN [id number]) Lumbar Spine Range of Motion Lumbar Spine Active Degrees Testing Position Standing Flexion 63 Extension 3 Rotation Left 3 Rotation Right 3 Lateral Flexion Left 10 Lateral Flexion Right 10 Hip Goniometric Range of Motion Hip Right Passive Testing Position Supine Abduction 40 Internal Rotation 30 External Rotation 65 Left Passive Testing Position Supine Abduction 35 Internal Rotation 30 External Rotation 55 PT-OP-M Strength Start: 10/24/23 16:46 Freq: Status: Active Protocol: Document 11/09/23 13:49 LRN (Rec: 11/09/23 14:39 LRN [id number]) Trunk Strength Trunk Manual Muscle Testing Core Stabilization Not able to stabilize core with MMT of LE's Hip Strength Hip Manual Muscle Testing Right Comments Strength is 5/5. Left Flexion (L2) 3 Fair Extension (S1) 3 Fair Abduction 3 Fair Adduction 4+ Good+ External Rotation 3 Fair Comments Strength is 5/5 except as indicated above. PT-OP-Q Treatments Start: 10/24/23 16:46 Freq: Status: Active Protocol: Document 11/23/23 13:01 LRN (Rec: 11/23/23 13:39 LRN [id number]) Therapeutic Exercises Supine Exercises Child's Pose Reps/Minutes 3' (~20 breaths) Comments Issued/Reviewed HEP Happy Baby Pose Reps/Minutes 3' Comments Issued/Reviewed HEP Lateral Hip stretch Side bilateral Reps/Minutes 5' PF relaxation p/Kegel Supine Exercise Name PF relaxation awareness training after Kegel. Reps/Minutes 3' Piriformis stretch Supine Exercise Name Ankle over knee>KTC and Knee/ ankle to opp shdr Side bilateral Reps/Minutes 11' Deep Breathing Supine Exercise Name Deep Breathing trainin hand on chest/1 hand on abdomen Reps/Minutes 7' Comments Cued to push into abdominal fingers w/inhale& draw in w/ exhale, chest still Other Exercises Cat/Camel Reps/Minutes 3' Comments Issued/reviewed HEP Manual Therapy Treatment Soft Tissue Mobilization PF stretching Body Location PF, inspection before treatment Body Position [place] Comments Did not do manual stretching due to possible vaginal infection. Will hold until cleared medically. Self-Care/Home Management Treatment Activities Self-Care/Home Management Activities See ther ex for issued & reviewed HEP of Happy Baby pose, Child's pose & cat/camel stretching. PT-OP-T Assessment and Plan Start: 10/24/23 16:46 Freq: Status: Active Protocol: Document 11/23/23 13:01 LRN (Rec: 11/23/23 13:39 LRN [id number]) Physical Therapy Assessment Goals Three Impairment L hip and core weakness Short Term Goal (STG) Pt will be able to perform a PF contraction w/o use of substitute muscles. 11/16/23: Initiated trng for PF contraction w/o use of substitute ms. STG Duration 4 wks-12/08/23 progressed Reading Specialist Goal (LTG) Pt will demonstrate improved L hip strength to improve symmetry of tone of PF and overall lessening of PF pain. LTG Duration 10 wks-01/19/24 Two Impairment PF pain at vaginal opening Impairment Quick Flicks in 10 secs - x2 Short Term Goal (STG) Pt will be educated in methods to quiet the autonomic nervous system to decrease resting tone after proper PF contraction (PF contraction in the absence of abdominal/ gluteal muscles). 11/16/23: Awareness trng of PF relaxation with exhale or after contraction STG Duration 4 wks-12/08/23 progressed Reading Specialist Goal (LTG) Improve PF mobility at vaginal opening with pt able to tolerate speculum insertion for HSG testing and possible artificial insemination. LTG Duration 10 wks-01/19/24 One Impairment Lacks appropriate self care HEP Short Term Goal (STG) Pt will be able to demonstrated proper deep breathing method for PF relaxation. STG Duration 2 wks-11/24/23 (11/16/23: MET GOAL) Retirement Goal (LTG) Pt will be independent in self care HEP of PF stretches, LB/ hip stretches and strengthening ex's, core strengthening ex's. 11/16/23: HEP: Modified Happy Baby to progress to Happy Baby Pose & Child's pose . 11/23/23: HEP: Piriformis & lateral hip stretch. LTG Duration 10 wks-01/19/24 progressed Assessment Summary Assessment 48 yo female w/PF tightness/ pain at opening of vagina (not able to get speculum inserted ) due to tightness of superficial>deep muscles. Pt is now able to perform deep breathing coordinating well abdominal relaxation and less w/chest mvmt. Pt using deep breathing to relaxation relax PF for greater perceived emptying with 2nd urination. Pt vaginal region has white film and appears to have white spots on cystocele. Pt needs medical treatment for assessment/treatment for vaginal infection before further therapy. Pt to return when she thinks cleared from infection. Physical Therapy Plan Frequency and Duration Frequency of Treatment 2x/Week Duration of treatment (weeks) 10 Plan of Care Start Date 11/09/23 Plan of Care End Date 01/19/24 Next Visit Focus/Plan Next Note Type Treatment Note Next Visit Plan Pt to return before december for recheck for new POC and resume treatment when cleared of infection, self care PF stretching with wand. Pt to order own progressive dilators when appropriate. Next: Trng in proper Kegel without use of substitute muscles, PF relaxation with breathing during transfers and body mechanics and transfer training sit to stand (hip hinge), and moving in bed using breathwork for PF relaxation; methods to quiet the autonomic nervous system to decrease PF resting tone and tone after PF contraction. Core/L hip strengthening, Monitor for improved mobility of L hip ER & luca IR ROM, SLR. POC: Pt education, Manual therapy. Biofeedback (when cleared of infection) with vaginal sensor if tolerated. Therapeutic Exercises, Therapeutic Activities, Neuromuscular Reeducation.
--- NOTE | 2023-12-21 16:35 | PT.OTN ---
Current Diagnoses Stiffness of unspecified hip, not elsewhere classified (12/21/23) Muscle weakness (generalized) (12/21/23) Unspecified dyspareunia (12/21/23) Physical Therapy Treatment Note PT-OP-A Visit Information Start: 10/24/23 16:46 Freq: Status: Active Protocol: Document 12/21/23 13:01 LRN (Rec: 12/21/23 13:47 LRN [id number]) Out-Patient Physical Therapy Visit Information Visit Information Visit Type Progress Note Visit Start Time 13:01 Visit Stop Time 13:45 Visit Number 10/21 Evaluation Information Evaluation Date 11/09/23 Precautions Precautions Narcolepsy, with cataplexy, auditory hallucinations, Bipolar schizoaffective disorder. PT-OP-B Current Condition Start: 10/24/23 16:46 Freq: Status: Active Protocol: Document 11/09/23 13:49 LRN (Rec: 11/09/23 14:39 LRN [id number]) Current Condition History of Current Condition Onset Date 07/2023 Current Complaints Pain with insertion of speculum. History of Current Condition Pain with intercourse in 1999. Hasn't been able to get pelvic exam done because she is not able to tolerate insertion of speculum. Pt is wanting to get via artificial insemination, but must undergo a pelvic exam. Per intake form pt notes pain in posterior aspect of vagina. Treatment Goals Patient/Caregiver Goals Pt goal is: Be able to tolerate speculum insertion for HSG testing. Not have pelvic pain for artificial insemination. HEP. Personal Factors Other Personal Factors That May Effect Per pt intake form and Therapy/Recovery discussion: Narcolepsy, with cataplexy, auditory hallucinations, Bipolar schizoaffective disorder. PT-OP-C Subjective Start: 10/24/23 16:46 Freq: Status: Active Protocol: Document 12/21/23 13:01 LRN (Rec: 12/21/23 13:47 LRN [id number]) OP-PT Subjective Patient Comments Patient Comments Not able to see the doctor for vaginal infection. Requests other ex's to do while she waits for vaginal assessment. Patient Questionnaires Pelvic Pain and Urgency/Frequency Patient Symptom Scale Pelvic Pain Score 12 PT-OP-I Pelvic Floor Start: 10/24/23 16:46 Freq: Status: Active Protocol: Document 11/09/23 13:49 LRN (Rec: 11/09/23 14:39 LRN [id number]) Pelvic Floor Assessment Urine Pelvic Floor Surgery No Urinary Symptoms Hesitancy Other Urinary Symptoms Triggers if running water, hands in warm water, tub/ shower. Triggers used to start urination. Slow or difficulty starting urination. Strains to urinate Voiding Frequency 3/day Nocturia 1x Bowel Bowel Symptoms Constipation Other Bowel Symptoms Diarrhea Takes Imodium daily for diarrhea Bowel Movement Frequency 1x/day Brick Stool Chart Type 1-7 4 Brick Stool Chart Comments Type 5 if doesn't take Imodium . Pelvic Clock Pelvic Clock 12-3 Tenderness,Tightness Pelvic Clock 3-6 Tenderness,Tightness Pelvic Clock 6-9 Tenderness,Tightness Pelvic Clock 9-12 Tenderness,Tightness Pelvic Clock Other Greatest tenderness at 3-9 of PF clock. Contraction Ability Voluntary Contraction Weak Voluntary Relaxation Absent Manual Muscle Testing Left 2 Manual Muscle Testing Right 2 Manual Muscle Testing Anterior 2 Manual Muscle Testing Posterior 1 Muscle Endurance (Seconds) 8 Number of Quick Contractions In 10 2 Seconds Comments Pelvic Floor Comments Pt PF tissues very dry and lacking in color (light pink). Ridges and possible cysts palpated in vaginal tissues, 2 -9 of PF clock. PT-OP-J Posture/Palpation/Skin Start: 10/24/23 16:46 Freq: Status: Active Protocol: Document 11/09/23 13:49 LRN (Rec: 11/09/23 14:39 LRN [id number]) Posture Evaluation Position Standing Head/C-Spine Posture Forward Head L-Spine Posture Increased Lordosis Scapula Posture (R) Rotated Down,(R) Depressed Arm Posture (L) Internally Rotated,(R) Internally Rotated Pelvis Posture Anteriorly Tilted Weight Distribution Balanced Knee Posture (L) Genu Valgus,(R) Genu Valgus Comments Posture Comments Trunk leans to L, mild forward head, decreased thoracic curve, PT-OP-K Range of Motion Start: 10/24/23 16:46 Freq: Status: Active Protocol: Document 11/09/23 13:49 LRN (Rec: 11/09/23 14:39 LRN [id number]) Lumbar Spine Range of Motion Lumbar Spine Active Degrees Testing Position Standing Flexion 63 Extension 3 Rotation Left 3 Rotation Right 3 Lateral Flexion Left 10 Lateral Flexion Right 10 Hip Goniometric Range of Motion Hip Right Passive Testing Position Supine Abduction 40 Internal Rotation 30 External Rotation 65 Left Passive Testing Position Supine Abduction 35 Internal Rotation 30 External Rotation 55 PT-OP-M Strength Start: 10/24/23 16:46 Freq: Status: Active Protocol: Document 11/09/23 13:49 LRN (Rec: 11/09/23 14:39 LRN [id number]) Trunk Strength Trunk Manual Muscle Testing Core Stabilization Not able to stabilize core with MMT of LE's Hip Strength Hip Manual Muscle Testing Right Comments Strength is 5/5. Left Flexion (L2) 3 Fair Extension (S1) 3 Fair Abduction 3 Fair Adduction 4+ Good+ External Rotation 3 Fair Comments Strength is 5/5 except as indicated above. PT-OP-Q Treatments Start: 10/24/23 16:46 Freq: Status: Active Protocol: Document 12/21/23 13:01 LRN (Rec: 12/21/23 13:47 LRN [id number]) Therapeutic Exercises Supine Exercises Child's Pose Reps/Minutes 3' (~20 breaths) Happy Baby Pose Reps/Minutes 3' Lateral Hip stretch Side bilateral Reps/Minutes 6' PF relaxation p/Kegel Supine Exercise Name PF relaxation awareness training after Kegel. Reps/Minutes 8' Piriformis stretch Supine Exercise Name Ankle over knee>KTC and Knee/ ankle to opp shdr Side bilateral Reps/Minutes 8' Other Exercises Cat/Camel Reps/Minutes 3' Neuro Re-Education Treatment Coordination Activities Breathing w/PF relaxation Details Training/education: In breath reverse Kegel, exhale PF relax, PF anatomy Reps/Duration 13' Comments Constant v. cuing and speaking with pt to keep her engaged and awake. Pt falling asleep through treatment as expected per her narcolepsy condition. PT-OP-T Assessment and Plan Start: 10/24/23 16:46 Freq: Status: Active Protocol: Document 12/21/23 13:01 LRN (Rec: 12/21/23 13:47 LRN [id number]) Physical Therapy Assessment Rehab Potential Rehabilitation Potential Good Evaluation Complexity Number of Personal Factors/Comorbidities 3 or More Number of Body Systems Impaired 4 or More Clinical Presentation at Evaluation Evolving Impairments Impairments Pain,Posture,ROM,Strength, Transfers Goals Three Impairment L hip and core weakness Short Term Goal (STG) Pt will be able to perform a PF contraction w/o use of substitute muscles. 11/16/23: Initiated trng for PF contraction w/o use of substitute ms. STG Duration 9 wks-02/16/24 progressed Maid Housekeeper Goal (LTG) Pt will demonstrate improved L hip strength to improve symmetry of tone of PF and overall lessening of PF pain. LTG Duration 12 wks-03/14/24 Two Impairment PF pain at vaginal opening Impairment Quick Flicks in 10 secs - x2 Short Term Goal (STG) Pt will be educated in methods to quiet the autonomic nervous system to decrease resting tone after proper PF contraction (PF contraction in the absence of abdominal/ gluteal muscles). 11/16/23: Awareness trng of PF relaxation with exhale or after contraction STG Duration 9 wks-02/16/24 progressed Maid Housekeeper Goal (LTG) Improve PF mobility at vaginal opening with pt able to tolerate speculum insertion for HSG testing and possible artificial insemination. LTG Duration 12 wks-03/14/24 One Impairment Lacks appropriate self care HEP Short Term Goal (STG) Pt will be able to demonstrated proper deep breathing method for PF relaxation. STG Duration 2 wks-11/24/23 (11/16/23: MET GOAL) Group Home Goal (LTG) Pt will be independent in self care HEP of PF stretches, LB/ hip stretches and strengthening ex's, core strengthening ex's. 11/16/23: HEP: Modified Happy Baby to progress to Happy Baby Pose & Child's pose . 11/23/23: HEP: Piriformis & lateral hip stretch. 12/21/23: I/S pt in coordination of PF stretch with breathe. LTG Duration 12 wks-03/14/24 progressed 12/21/2023 Assessment Summary Assessment Pt is a 48 yo female w/PF tightness/pain at opening of vagina (not able to get speculum inserted) due to tightness of superficial>deep PF muscles. Pt is now able to perform deep breathing and today was started on coordinating her breathing with PF relaxation, but needs much more training as relaxation of her muscles are minimal and awareness of relaxation is poor. I have not been able to manually stretch her PF because of concerns of vaginal infection. Kedar has not been unable to be assessed by her primary care physician to determine if she is cleared from her vaginal infection; therefore therapy will be postponed until after PF vacation, giving pt more time to be reassessed for vaginal infection. Additionally, PT will be gone for 4 wks resulting in prolongation of pt rehab program. Today, pt assessed for extension of her PT plan of care, review of HEP & further ex's for self care. The pt will benefit from continued skilled physical therapy for manual therapy of PF stretching to reduce her pain with use of speculum, therapeutic ex for coordination of PF relaxation with breathing and stretches, Therapeutic Activities for PF relaxation, Therapeutic ex for hip ROM and strengthening, and Neuromuscular Reeducation for pelvic and core stability. Physical Therapy Plan Frequency and Duration Frequency of Treatment 1-2x/week Duration of treatment (weeks) 12 Plan of Care Start Date 12/21/23 Plan of Care End Date 03/14/24 Therapeutic Interventions Therapeutic Interventions Home Exercise Program,Joint Mobilizations,Manual Therapy, Neuromuscular Re-education, Self-Care/Home Management,Soft Tissue Mobilization, Therapeutic Activities, Therapeutic Exercises Modalities Biofeedback Next Visit Focus/Plan Next Note Type Treatment Note Next Visit Plan Resume manual vaginal PF treatment when cleared of infection & self care PF stretching with wand. Pt to order own progressive dilators when appropriate. Next: Assess response to PF relaxation w/breathing ( reverse Kegel) & issue HO for diaphragmatic breathing with PF relaxation. Trng in proper Kegel without use of substitute muscles, PF relaxation with breathing during transfers and body mechanics and transfer training sit to stand (hip hinge), and moving in bed using breathwork for PF relaxation; methods to quiet the autonomic nervous system to decrease PF resting tone and tone after PF contraction. Core/L hip strengthening, Monitor for improved mobility of L hip ER & luca IR ROM, SLR. POC: Pt education, Manual therapy. Biofeedback (when cleared of infection) with vaginal sensor if tolerated. Therapeutic Exercises, Therapeutic Activities, Neuromuscular Reeducation.
--- NOTE | 2024-07-25 16:51 | PT.OPDS ---
Current Diagnoses Stiffness of unspecified hip, not elsewhere classified (12/21/23) Muscle weakness (generalized) (12/21/23) Unspecified dyspareunia (12/21/23) Visit Care Team Role Provider Type Delisa Lockett MD Family Provider Physician Primary Care Provider Specialty: Family Practice SOCIAL SERVICE TECHNICIAN Address: [address] [place], [address] Fax: Email: [email or web address] Nola Varma MD Attending Provider Non-Staff Referring Provider Specialty: Family Practice Address: [address] [place] [address], [phone] Email: Visit Number Visit Number 10/21 Discharge Summary PT-OP-B Current Condition Start: 10/24/23 16:46 Freq: Status: Active Protocol: Document 11/09/23 13:49 LRN (Rec: 11/09/23 14:39 LRN [id number]) Current Condition History of Current Condition Onset Date 07/2023 Current Complaints Pain with insertion of speculum. History of Current Condition Pain with intercourse in 1999. Hasn't been able to get pelvic exam done because she is not able to tolerate insertion of speculum. Pt is wanting to get via artificial insemination, but must undergo a pelvic exam. Per intake form pt notes pain in posterior aspect of vagina. Treatment Goals Patient/Caregiver Goals Pt goal is: Be able to tolerate speculum insertion for HSG testing. Not have pelvic pain for artificial insemination. HEP. Personal Factors Other Personal Factors That May Effect Per pt intake form and Therapy/Recovery discussion: Narcolepsy, with cataplexy, auditory hallucinations, Bipolar schizoaffective disorder. PT-OP-C Subjective Start: 10/24/23 16:46 Freq: Status: Active Protocol: Document 12/21/23 13:01 LRN (Rec: 12/21/23 13:47 LRN [id number]) OP-PT Subjective Patient Comments Patient Comments Not able to see the doctor for vaginal infection. Requests other ex's to do while she waits for vaginal assessment. Patient Questionnaires Pelvic Pain and Urgency/Frequency Patient Symptom Scale Pelvic Pain Score 12 PT-OP-I Pelvic Floor Start: 10/24/23 16:46 Freq: Status: Active Protocol: Document 11/09/23 13:49 LRN (Rec: 11/09/23 14:39 LRN [id number]) Pelvic Floor Assessment Urine Pelvic Floor Surgery No Urinary Symptoms Hesitancy Other Urinary Symptoms Triggers if running water, hands in warm water, tub/ shower. Triggers used to start urination. Slow or difficulty starting urination. Strains to urinate Voiding Frequency 3/day Nocturia 1x Bowel Bowel Symptoms Constipation Other Bowel Symptoms Diarrhea Takes Imodium daily for diarrhea Bowel Movement Frequency 1x/day [place] Stool Chart Type 1-7 4 [place] Stool Chart Comments Type 5 if doesn't take Imodium . Pelvic Clock Pelvic Clock 12-3 Tenderness,Tightness Pelvic Clock 3-6 Tenderness,Tightness Pelvic Clock 6-9 Tenderness,Tightness Pelvic Clock 9-12 Tenderness,Tightness Pelvic Clock Other Greatest tenderness at 3-9 of PF clock. Contraction Ability Voluntary Contraction Weak Voluntary Relaxation Absent Manual Muscle Testing Left 2 Manual Muscle Testing Right 2 Manual Muscle Testing Anterior 2 Manual Muscle Testing Posterior 1 Muscle Endurance (Seconds) 8 Number of Quick Contractions In 10 2 Seconds Comments Pelvic Floor Comments Pt PF tissues very dry and lacking in color (light pink). Ridges and possible cysts palpated in vaginal tissues, 2 -9 of PF clock. PT-OP-J Posture/Palpation/Skin Start: 10/24/23 16:46 Freq: Status: Active Protocol: Document 11/09/23 13:49 LRN (Rec: 11/09/23 14:39 LRN [id number]) Posture Evaluation Position Standing Head/C-Spine Posture Forward Head L-Spine Posture Increased Lordosis Scapula Posture (R) Rotated Down,(R) Depressed Arm Posture (L) Internally Rotated,(R) Internally Rotated Pelvis Posture Anteriorly Tilted Weight Distribution Balanced Knee Posture (L) Genu Valgus,(R) Genu Valgus Comments Posture Comments Trunk leans to L, mild forward head, decreased thoracic curve, PT-OP-K Range of Motion Start: 10/24/23 16:46 Freq: Status: Active Protocol: Document 11/09/23 13:49 LRN (Rec: 11/09/23 14:39 LRN [id number]) Lumbar Spine Range of Motion Lumbar Spine Active Degrees Testing Position Standing Flexion 63 Extension 3 Rotation Left 3 Rotation Right 3 Lateral Flexion Left 10 Lateral Flexion Right 10 Hip Goniometric Range of Motion Hip Right Passive Testing Position Supine Abduction 40 Internal Rotation 30 External Rotation 65 Left Passive Testing Position Supine Abduction 35 Internal Rotation 30 External Rotation 55 PT-OP-M Strength Start: 10/24/23 16:46 Freq: Status: Active Protocol: Document 11/09/23 13:49 LRN (Rec: 11/09/23 14:39 LRN [id number]) Trunk Strength Trunk Manual Muscle Testing Core Stabilization Not able to stabilize core with MMT of LE's Hip Strength Hip Manual Muscle Testing Right Comments Strength is 5/5. Left Flexion (L2) 3 Fair Extension (S1) 3 Fair Abduction 3 Fair Adduction 4+ Good+ External Rotation 3 Fair Comments Strength is 5/5 except as indicated above. PT-OP-T Assessment and Plan Start: 10/24/23 16:46 Freq: Status: Active Protocol: Document 07/25/24 16:43 LRN (Rec: 07/25/24 16:51 LRN [id number]) Physical Therapy Assessment Goals Three Impairment L hip and core weakness Short Term Goal (STG) Pt will be able to perform a PF contraction w/o use of substitute muscles. 11/16/23: Initiated trng for PF contraction w/o use of substitute ms. STG Duration 9 wks-02/16/24 progressed , NOT MET GOAL Teacher Lip Reading Goal (LTG) Pt will demonstrate improved L hip strength to improve symmetry of tone of PF and overall lessening of PF pain. LTG Duration 12 wks-03/14/24 NOT MET GOAL Two Impairment PF pain at vaginal opening Impairment Quick Flicks in 10 secs - x2 Short Term Goal (STG) Pt will be educated in methods to quiet the autonomic nervous system to decrease resting tone after proper PF contraction (PF contraction in the absence of abdominal/ gluteal muscles). 11/16/23: Awareness trng of PF relaxation with exhale or after contraction STG Duration 9 wks-02/16/24 progressed , NOT MET GOAL Teacher Lip Reading Goal (LTG) Improve PF mobility at vaginal opening with pt able to tolerate speculum insertion for HSG testing and possible artificial insemination. LTG Duration 12 wks-03/14/24 NOT MET GOAL One Impairment Lacks appropriate self care HEP Short Term Goal (STG) Pt will be able to demonstrated proper deep breathing method for PF relaxation. STG Duration 2 wks-11/24/23 (11/16/23: MET GOAL) Mcc Goal (LTG) Pt will be independent in self care HEP of PF stretches, LB/ hip stretches and strengthening ex's, core strengthening ex's. 11/16/23: HEP: Modified Happy Baby to progress to Happy Baby Pose & Child's pose . 11/23/23: HEP: Piriformis & lateral hip stretch. 12/21/23: I/S pt in coordination of PF stretch with breathe. LTG Duration 12 wks-03/14/24 progressed 12/21/2023, NOT MET GOAL. Assessment Summary Assessment The pt was seen for her initial evaluation and 4 treatment visits with the last visit on 12/21/23. She canceled her 2 remaining visits due to scheduling difficulties, and pt requested removal from waitlist . The pt was being seen for PF tightness/pain at vaginal opening due to tightness of superficial>deep PF muscles. Pt goals were not met due to pt not able to attend therapy. Physical Therapy Plan Discharge Physical Therapy Discharge Reasons No Longer Attending PT Discharge Comments Thank you for your referral.
== END 2024-08-01 08:41 | disposition home or self-care (01) ==
LOC: PHYS 13:00
PROVIDERS: Family Provider Family Medicine; PCP Family Medicine; Referring Provider Family Medicine; Visit Provider Family Medicine
DX: N94.10 Unspecified dyspareunia (principal); M25.659 Stiffness of unspecified hip, not elsewhere classified; M62.81 Muscle weakness (generalized)
CPT/HCPCS: 97110; 97112; 97140; 97535

== ENCOUNTER → 2024-01-30 15:42 | Outpatient (CLI) | payer MEDICARE, SELFPAY ==
--- NOTE | 2024-01-30 | DI.MG.S_ITS ---
BILATERAL DIGITAL SCREENING MAMMOGRAM 3D/2D WITH CAD: 01/30/2024 CLINICAL: Routine screening. Comparison is made to exams dated: 01/26/2023 mammogram, 01/19/2022 mammogram, and 06/18/2020 mammogram - [facility]. Both breasts are heterogeneously dense, which may obscure small masses (category c / 51-75% glandular tissue). Current study was also evaluated with a Computer Aided Detection (CAD) system. No significant masses, calcifications, or other findings are seen in either breast. There has been no significant interval change. IMPRESSION: NEGATIVE There is no mammographic evidence of malignancy. A 1 year screening mammogram is recommended. Based on the Tyrer Cuzick model (a risk assessment model) the patient's lifetime risk is 16.8% and her 10 year risk is 4.0%. According to the ACR, ACS, and NCCN guidelines, an annual breast MRI exam along with mammogram is recommended if the patient's lifetime risk is 20% or greater. This exam was interpreted at Station ID: [id number]. NOTE: For mammograms, a report in lay terms will be sent to the patient. Approximately 15% of breast malignancies will not be visualized mammographically. In the management of a palpable breast mass, a negative mammogram must not discourage biopsy of a clinically suspicious lesion. Electronically Signed By: Mega velasquez/oleg:01/30/2024 16:26:30 letter sent: Normal Exam ACR BI-RADS Category 1: Negative [id number]
== END ==
PROVIDERS: Family Provider Family Medicine; PCP Family Medicine; Referring Provider Family Medicine; Visit Provider Family Medicine
DX: Z12.31 Encounter for screening mammogram for malignant neoplasm of breast (principal); R92.333 Mammographic heterogeneous density, bilateral breasts
CPT/HCPCS: 77063; 77067

== ENCOUNTER → 2024-05-17 13:26 | Outpatient (CLI) | payer MEDICARE, SELFPAY | PROVIDERS: Family Provider Family Medicine; PCP Family Medicine; Visit Provider Student in an Organized Health Care Education/Training Program | DX: R39.9 Unspecified symptoms and signs involving the genitourinary system (principal) | CPT/HCPCS: 87077; 87086; 87186 ==

== ENCOUNTER → 2024-09-01 11:29 | Outpatient (CLI) | payer MEDICARE, SELFPAY ==
--- NOTE | 2024-09-01 11:32 | DI.RAD.S_ITS ---
PROCEDURE: XR ELBOW RT MIN 3V INDICATIONS: right elbow pain TECHNIQUE: 3 views of the elbow were acquired. COMPARISON: None. FINDINGS: Bones: No fractures or dislocations. No suspicious bony lesions. Soft tissues: No elbow joint effusion. No suspicious soft tissue calcifications. IMPRESSION: No acute bony abnormality or significant joint effusion. Dictated by: Jagjit Menezes M.D. on 09/01/2024 at 12:06 Approved by: Jagjit Menezes M.D. on 09/01/2024 at 12:06
== END ==
LOC: RAD 11:31
PROVIDERS: Family Provider Family Medicine; PCP Family Medicine; Referring Provider Registered Nurse; Visit Provider Registered Nurse
DX: M25.521 Pain in right elbow (principal)
CPT/HCPCS: 73080

== ENCOUNTER 2024-10-07 17:09 | Emergency (ER) | payer MEDICARE, SELFPAY ==
[2024-10-07 17:35] VITALS: BP 111/58; PULSE 96; RESP 17; TEMP 36.6; O2SAT 95; BMI 30.7
--- NOTE | 2024-10-07 18:20 | ED.SKABFB ---
HPI - Skin/Abscess/Foreign Bdy <Cuauhtemoc Del Valle PA-C - Last Filed: 10/07/24 18:35> General Chief complaint: Skin/Abscess/Foreign Body Stated complaint: rash on forearms x3 days Time Seen by Provider: 10/07/24 18:07 Source: patient Mode of arrival: Ambulatory History of Present Illness HPI narrative: 49-year-old female with past medical history bipolar disorder, generalized anxiety disorder, narcolepsy, schizoaffective disorder, dyslipidemia, IBS presents to the ED with 2 days of erythema on bilateral arms, right greater than left. Patient states she was in the sun, did not use sunscreen. Patient complains of the rash being somewhat itchy, tingling. No fever, chills. Related Data Home Medications Medication Instructions Recorded Confirmed benztropine 1 mg tablet 1 mg PO DAILY 01/02/23 09/01/24 loperamide 2 mg capsule 2 mg PO QID PRN 07/31/23 09/01/24 (Anti-Diarrheal (loperamide)) metformin 500 mg tablet 500 mg PO BID 07/31/23 09/01/24 modafinil 200 mg tablet (Provigil) 200 mg PO TID 07/31/23 09/01/24 paliperidone 1.5 mg See Rx Instructions PO QAM 07/31/23 09/01/24 tablet,extended release 24 hr paliperidone 3 mg tablet,extended 3 mg PO QAM 07/31/23 09/01/24 release 24 hr (Invega) pitolisant 17.8 mg tablet (Wakix) 35.6 mg PO DAILY 07/31/23 09/01/24 vitamin B complex (B 1 tab PO DAILY 07/31/23 09/01/24 Complex-Vitamin B12 tablet) sodium oxybate 4.5 gram g PO 09/01/24 09/01/24 granules,extended release in packet (Lumryz) Previous Rx's Medication Instructions Recorded omeprazole 20 mg capsule,delayed 20 mg PO BID #120 caps 05/27/20 release lurasidone 80 mg tablet 80 mg PO DAILY #90 tabs 08/14/20 venlafaxine 37.5 mg tablet 112.5 mg (3 x 37.5 mg) PO DAILY 90 08/14/20 days #270 tabs lithium carbonate 300 mg tablet 300 mg PO .COMPLEX #90 tabs 10/26/20 nystatin 100,000 unit/gram topical 1 applic topical BID #30 grams 03/27/24 cream Allergies Allergy/AdvReac Type Severity Reaction Status Date / Time lamotrigine [From Lamictal] AdvReac Rash Verified 10/07/24 17:35 Review of Systems <Cuauhtemoc Del Valle PA-C - Last Filed: 10/07/24 18:35> Constitutional Constitutional: Denies chills, Denies fatigue, Denies fever(s), Denies frequent falls, Denies lethargy and Denies weakness Eyes Eyes: Denies change in vision, Denies eye discharge, Denies irritation and Denies loss of vision ENT Ears, Nose, Mouth, and Throat: Denies change in voice, Denies dizziness, Denies neck pain, Denies sore throat and Denies throat swelling Cardiovascular Cardiovascular: Denies chest pain, Denies irregular heart rhythm, Denies lightheadedness, Denies palpitations, Denies dyspnea, Denies dyspnea on exertion and Denies orthopnea Respiratory Respiratory: Denies cough, Denies dyspnea, Denies dyspnea on exertion and Denies wheezing Gastrointestinal Gastrointestinal: Denies abdominal pain, Denies change in bowel habits, Denies diarrhea, Denies nausea and Denies vomiting Musculoskeletal Musculoskeletal: Denies neck pain and Denies numbness Integumentary/Breasts Skin/Breast: Denies pruritus, Denies erythema, Denies rash and Denies wounds Comments: Redness, itching, bilateral arms Neurologic Neurologic: Denies behavioral changes, Denies confusion, Denies dizziness, Denies frequent falls, Denies loss of vision, Denies numbness and Denies weakness Psychiatric Psychiatric: Denies anxiety, Denies behavioral changes, Denies confusion, Denies depression, Denies homicidal ideation and Denies suicidal ideation Endocrine Endocrine: Denies fatigue, Denies flushing and Denies palpitations Hematologic/Lymphatic Hematologic/Lymphatic: Denies easy bruising Allergic/Immunologic Allergic/Immunologic: Denies urticaria, Denies throat swelling and Denies wheezing Patient History <Cuauhtemoc DelV alle PA-C - Last Filed: 10/07/24 18:35> Medical History Advanced maternal age (AMA), 40 years or greater Weight gain due to medication Overweight (BMI 25.0-29.9) Dyslipidemia Sleep apnea (~2019) PCOS (polycystic ovarian syndrome) (~1995) Narcolepsy (~1992) Surgical History Anesthesia History of esophagogastroduodenoscopy (EGD) (~11/2019) History of colonoscopy (~11/2019) History of surgical removal of pilonidal cyst (~11/2004) Family History Brother Mental health problem Grandfather Brain tumor Grandfather Sleep apnea Grandmother Mental health problem Alcoholism Family/Other Schizophrenia Family/Other Schizophrenia Social History Smoking Status: Never smoker second hand exposure: No alcohol intake: never substance use type: does not use Smoking Status: Never smoker Exam <Cuauhtemoc Del Valle PA-C - Last Filed: 10/07/24 18:35> Narrative Exam Narrative: Const General:?cooperative, healthy appearing and comfortable [facility] Head:?normal to inspection Ears:?hearing grossly normal bilaterally Nose:?external nose normal Face and sinus:?normal facial exam and sinuses nontender Mouth:?oral mucosae normal Throat:?posterior oropharynx normal Eyes General:?appearance normal, both eyes and all related structures Neck Neck:?normal visual inspection and no lymphadenopathy noted Resp Effort & Inspection:?normal respiratory effort Auscultation:?clear to auscultation bilaterally Cardio Rate:?regular rate Rhythm:?regular rhythm Integumentary There is erythema of bilateral arms, right greater than left. Line of erythema poorly delineated by a straight line wear the sleeve ended. Consistent with sunburn. No signs of bacterial infection. Neurovascularly intact. Neuro General:?patient alert, patient awake and patient oriented x3 Initial Vital Signs Initial Vital Signs: Vital Signs Temperature 97.8 F 10/07/24 17:35 Pulse Rate 96 H 10/07/24 17:35 Respiratory Rate 17 10/07/24 17:35 Blood Pressure 111/58 L 10/07/24 17:35 Pulse Oximetry 95 10/07/24 17:35 Oxygen Delivery Method Room Air 10/07/24 17:35 <Nan Hurtado DO - Last Filed: 10/11/24 09:55> Initial Vital Signs Initial Vital Signs: Vital Signs Temperature 97.8 F 10/07/24 17:35 Pulse Rate 96 H 10/07/24 17:35 Respiratory Rate 17 10/07/24 17:35 Blood Pressure 111/58 L 10/07/24 17:35 Pulse Oximetry 95 10/07/24 17:35 Oxygen Delivery Method Room Air 10/07/24 17:35 Course <Cuauhtemoc Del Valle PA-C - Last Filed: 10/07/24 18:35> Vital Signs Vital signs: Vital Signs - 8 hr 10/07/24 17:35 Temperature 97.8 F Pulse Rate 96 H Respiratory Rate 17 Blood Pressure 111/58 L Pulse Oximetry 95 Oxygen Delivery Method Room Air <Nan Hurtado DO - Last Filed: 10/11/24 09:55> Vital Signs Vital signs: Vital Signs - 8 hr 10/07/24 17:35 Temperature 97.8 F Pulse Rate 96 H Respiratory Rate 17 Blood Pressure 111/58 L Pulse Oximetry 95 Oxygen Delivery Method Room Air MDM - Skin/Abscess/Foreign Bdy <Cuauhtemoc Del Valle PA-C - Last Filed: 10/07/24 18:35> MDM Narrative Medical decision making narrative: 49-year-old female with past medical history bipolar disorder, generalized anxiety disorder, narcolepsy, schizoaffective disorder, dyslipidemia, IBS presents to the ED with 2 days of erythema on bilateral arms, right greater than left. Patient presentation consistent with sunburn. Recommend hydrocortisone cream, aloe vera gel, unscented moisturizers. Recommend SP 50 sunscreen, applied every 2 hours. Also recommend long sleeve shirts for better protection. Recommend follow-up with PCP. ED return precautions discussed with patient. Patient verbalized understanding. Medical records reviewed: Yes Discharge Plan Departure Patient Disposition: Home Clinical Impression: Burn from the sun Instructions: DI for Sunburn Activity Restrictions/Additional Instructions: You were evaluated in the ED today for redness in the arm. It appears that you have a sunburn from sun exposure. You may apply hydrocortisone cream, aloe vera gels, unscented moisturizers like Cetaphil or CeraVe. Please ensure you apply a SPF 50 sunscreen prior to sun exposure. This will also need to be reapplied every 2 hours. It is also helpful to wear long sleeve shirts to avoid/minimize the exposure. Please follow-up with your PCP as soon as possible. Return to the ED if you have worsening symptoms. Prescriptions: No Action paliperidone [Invega] 3 mg tablet extended release 24 hr 3 mg PO QAM paliperidone 1.5 mg tablet extended release 24 hr See Rx Instructions PO QAM Rx Instructions: 1.5mg orally every morning; Wakix 17.8 mg tablet 35.6 mg PO DAILY loperamide [Anti-Diarrheal (loperamide)] 2 mg capsule 2 mg PO QID PRN vitamin B complex [B Complex-Vitamin B12] Tablet 1 tab PO DAILY Lumryz 4.5 gram extend release granules,packet PO lurasidone 80 mg tablet 80 mg PO DAILY Qty: 90 0RF Rx Instructions: Must administer with food (at least 350 calories) Hold until requested. venlafaxine 37.5 mg tablet 112.5 mg PO DAILY MDD 112.5mg 90 Days Qty: 270 1RF metformin 500 mg tablet 500 mg PO BID omeprazole 20 mg capsule,delayed release(DR/EC) 20 mg PO BID Qty: 120 3RF lithium carbonate 300 mg tablet 300 mg PO .COMPLEX MDD 900 mg MDD Qty: 90 1RF Rx Instructions: 300 mg PO TAKE ONE TABLET IN THE MORNING AND TWO TABLETS AT BEDTIME; nystatin 100,000 unit/gram cream 1 applic topical BID Qty: 30 0RF modafinil [Provigil] 200 mg tablet 200 mg PO TID Patient Comments: take after breakfast and lunch benztropine 1 mg tablet 1 mg PO DAILY Referrals: Delisa Lockett MD [Primary Care Provider] - Stand Alone Forms: Patient Portal/API/Survey ED Sign-out <Nan Hurtado DO - Last Filed: 10/11/24 09:55> Cosign ED Attending Carineature Attestation: I was available for consultation.
== END 2024-10-07 18:37 | disposition home or self-care (01) ==
PROVIDERS: Emergency Provider Student in an Organized Health Care Education/Training Program; Family Provider Family Medicine; PCP Family Medicine
DX: L55.9 Sunburn, unspecified (principal)
CPT/HCPCS: 99281

== ENCOUNTER → 2025-03-10 13:52 | Outpatient (CLI) | payer MEDICARE, SELFPAY ==
--- NOTE | 2025-03-10 13:53 | DI.MG.S_ITS ---
MM screening mammo BI: 03/10/2025. BI-RADS: 1 CLINICAL: 49-year old female for bilateral screening mammogram. Tyrer-Cuzick lifetime risk of 13.2%. No personal or first-degree family history of breast cancer. PRIOR EXAMS: 01/30/2024, 01/26/2023, 03/09/2022, 01/19/2022, 06/18/2020. MAMMOGRAPHY TECHNIQUE: 2D and 3D (tomosynthesis) digital mammographic views obtained, with additional images as needed for full coverage. Current study was also evaluated with a Computer Aided Detection (CAD) system. DENSITY C. The breasts are heterogeneously dense, which may obscure small masses. MAMMOGRAPHY FINDINGS Bilateral: No suspicious mass, asymmetry, microcalcification, or other abnormality seen. IMPRESSION: * No evidence of malignancy. RECOMMENDATIONS Bilateral * Annual screening mammography. OVERALL ASSESSMENT CATEGORY BI-RADS-1: Negative. The [employer] recommends annual screening mammography beginning at age 40 for women with average risk of breast cancer. ELECTRONICALLY SIGNED: Lucía Haley M.D. on 03/10/2025 at 03:07:50 PM PT Interpreting Station ID: [id number]
== END ==
LOC: MAMMO 13:52
PROVIDERS: Family Provider Family Medicine; PCP Family Medicine; Referring Provider Family Medicine; Visit Provider Family Medicine
DX: Z12.31 Encounter for screening mammogram for malignant neoplasm of breast (principal); R92.333 Mammographic heterogeneous density, bilateral breasts
CPT/HCPCS: 77063; 77067